=== PATIENT | female | born 1995 | race Caucasian/White ===

== ENCOUNTER 2021-11-11 08:29 | Outpatient (CLI) | payer OTHER, SELFPAY ==
[2021-11-11 11:12] LABS: Iron* 83 ug/dL (37-170)
[2021-11-11 11:22] LABS: Percent Iron Saturation 19 % (20-50); Total Iron Binding Capacity 436 ug/dL (265-497)
[2021-11-11 11:46] LABS: Ferritin* 11.6 ng/mL (6.24-137.0)
[2021-11-12 19:27] LABS: Rapid Plasma Reagin (RPR) Non Reactive (Non Reactive)
== END 2021-11-11 08:30 | disposition home or self-care (01) ==
LOC: NFLDREF 08:29
PROVIDERS: Advanced Practice Midwife; Visit Provider Advanced Practice Midwife
DX: Z34.83 Encounter for supervision of other normal pregnancy, third trimester (principal); Z3A.28 28 weeks gestation of pregnancy
CPT/HCPCS: 82728; 83540; 83550; 86592

== ENCOUNTER 2021-11-25 09:25 | Outpatient (CLI) | payer OTHER, SELFPAY ==
[2021-11-25 11:08] LABS: Aspartate Amino Transferase* 25 U/L (12-35)
[2021-11-25 11:09] LABS: Alanine Aminotransferase* 13 U/L (4-35); Uric Acid* 2.8 mg/dL (2.2-8.4)
[2021-11-25 11:13] LABS: Total Protein Urine < 5 mg/dL
[2021-11-25 11:18] LABS: Creatinine Urine 249.7 mg/dL
[2021-11-25 23:01] LABS: Blood Urea Nitrogen* 14 mg/dL (5-24); Creatinine* 0.6 mg/dL (0.5-1.5); Estimated Glomerular Filt Rate 126 ml/min
== END 2021-11-25 09:26 | disposition home or self-care (01) ==
PROVIDERS: Visit Provider Advanced Practice Midwife
DX: O26.893 Other specified pregnancy related conditions, third trimester (principal); R51.9 Headache, unspecified; Z3A.30 30 weeks gestation of pregnancy
CPT/HCPCS: 82565; 82570; 84156; 84450; 84460; 84520; 84550

== ENCOUNTER 2021-12-03 21:35 | Outpatient (CLI) | payer OTHER, SELFPAY ==
[2021-12-03 22:03] VITALS: BP 110/73; PULSE 96
[2021-12-03 22:04] VITALS: RESP 18; TEMP 36.8; O2SAT 97
[2021-12-03 22:30] LABS: Amnisure Rom* Negative
[2021-12-03 22:32] LABS: Clue Cells No Clue Cells Seen (None Seen); Trichomonas No Trichomonas Seen (None Seen); Yeast Yeast Seen (None Seen)
--- NOTE | 2021-12-03 23:13 | PC.OBNST ---
NST Note NST Note Start: 12/03/21 21:41 Freq: ONCE Status: Active Protocol: Document 12/03/21 22:55 CAW (Rec: 12/03/21 23:13 CAW [id number]) NST Note 2 Para (# of births) 1 EDC 02/01/22 Gestational Age In Weeks & Days 31 Weeks & 3 Days Patient Presented with Complaint(s) of Leaking fluid,Pain If Pain, describe location Lower back and abdominal pain rating 3-4/10 Reactive Yes Appropriate for Gestational Age Yes RN Felisha Marina, NINAC Date 12/03/21 Reactive Yes Appropriate for Gestational Age Yes NINA Fishman, RN Date 12/03/21 OB NST charge Yes Complete NST Note via Write Note Yes The provider's electronic signature indicates the NST is reactive/appropriate for gestational age. *Note to provider: If an addendum is required, open the patient's chart and click on the note under the Nurse/Allied Health tab.
== END 2021-12-03 23:10 | disposition home or self-care (01) ==
LOC: OB LAC 21:35 → OB 21:37
PROVIDERS: Visit Provider Obstetrics & Gynecology
DX: O47.03 False labor before 37 completed weeks of gestation, third trimester (principal); Z3A.31 31 weeks gestation of pregnancy
CPT/HCPCS: 59025; 84112; 87210; 99213

== ENCOUNTER 2021-12-12 09:12 | Outpatient (CLI) | payer OTHER, SELFPAY ==
--- NOTE | 2021-12-12 09:15 | CRLHL7_ITS ---
For Patients: As a result of the Cures Act, medical imaging exams and procedure reports are released immediately into your electronic medical record. You may view this report before your referring provider. If you have questions, please contact your health care provider. INDICATION: FLUID CHECK, HAD OLIGO WITH PREVIOUS COMPARISON: 09/14/2021 TECHNIQUE: Real time lebron scale imaging of the fetus was performed. FINDINGS: Sonographic imaging demonstrates a single living intrauterine gestation. Fetus demonstrates a regular cardiac rate of 150 beats per minute. Fetus has a vertex position. The placenta lies anteriorly. Amniotic fluid volume appears lower limits normal and there is a single deepest vertical pocket: 5.4 cm. The estimated weight is 4gm which lies at the 43rd %. On the prior OB ultrasound exam dated 09/14/2021 the estimated weight was at the 38th%. BPD 69th. HC 31st. AC 53rd. FL 28th. The HC/AC ratio measures 1.05 range (0.96-1.11). IMPRESSION: Sonographic gestational age 33 weeks 0 days and sonographic due date 01/30/2022. Good correlation with dates. Normal interval growth. Single deepest pocket 5.4 cm. Continued follow-up recommended as the overall SONIA appears subjectively lower limits of normal. Estimated weight 43rd percentile. Abdominal circumference 53rd percentile. Dictated by Chris Obregon MD @ 12/12/2021 10:48:24 AM (Electronically Signed)
== END 2021-12-12 09:13 | disposition home or self-care (01) ==
LOC: US 09:12
PROVIDERS: Visit Provider Advanced Practice Midwife
DX: Z34.93 Encounter for supervision of normal pregnancy, unspecified, third trimester (principal); Z3A.32 32 weeks gestation of pregnancy
CPT/HCPCS: 76816

== ENCOUNTER 2021-12-29 16:04 | Outpatient (CLI) | payer OTHER, SELFPAY ==
[2021-12-29 16:16] VITALS: BP 133/69; PULSE 109; RESP 22; TEMP 36.6; O2SAT 98; BMI 33.2
--- NOTE | 2021-12-29 16:34 | ED_ITS ---
HPI - Fall General Chief Complaint: Fall/Minor Trauma Stated Complaint: Fell off horse, 33 weeks Time Seen by Provider: 12/29/21 16:14 History of Present Illness HPI Narrative: This 26-year-old female comes in for evaluation after a fall from a horse. She states that she is 35 weeks . She came off of the left side of her horse and fell onto her outstretched left hand. She did not hit her head. She did not have loss of consciousness. She was wearing a helmet. She did not injure any other extremity and states that she did not hit her abdomen. She comes in for evaluation of her . She does not report any bleeding or cramping. Related Data Home Medications Medication Instructions Recorded Confirmed prenat.vits,jonna,[id number] 1 tab PO QDAY 10/17/21 12/27/21 acetaminophen 500 mg tablet 1,000 mg PO Q6H PRN 12/12/21 12/27/21 (Tylenol Extra Strength) hydroxyzine HCl 25 mg tablet 25 mg PO ONCE PRN 12/27/21 12/27/21 lamotrigine 100 mg tablet 300 mg PO QDAY 12/27/21 12/27/21 magnesium 250 mg tablet 500 mg PO QDAY 12/27/21 12/27/21 Allergies Allergy/AdvReac Type Severity Reaction Status Date / Time sulfate ion Allergy Mild Hives and Verified 12/29/21 16:15 throat closes up Sulfa (Sulfonamide Allergy Verified 12/29/21 16:15 Antibiotics) Sulfa Antibiotics Allergy Intermediate Hives and Uncoded 12/27/21 08:56 throat closes up Review of Systems Status of ROS: Reports: 10 or more systems reviewed and unremarkable except as noted in History and below Narrative: Constitutional: No fevers, no weight gain or loss. Eyes: No discharge. No vision changes. HENT: No congestion, no sore throat, no ear pain. Cardiovascular: No chest pain, no palpitations. Respiratory: No shortness of breath, no wheezes, no cough. Gastrointestinal: No abdominal pain, no vomiting, no diarrhea. Genitourinary: No dysuria, no hematuria. Musculoskeletal: Normal range of motion. Left wrist pain. Skin: No rashes, no pruritis. Neurological: No dizziness, weakness, sensory change, speech change. Endo/Heme/Allergies: No bruising or bleeding. No polydipsia. Pysch: no suicidality, no anxiety, no insomnia. All other systems reviewed and are negative. [facility] Social History Smoking Status: Never smoker Exam Narrative: Exam Narrative: Constitutional: Well-developed, well-nourished, no acute distress. HEENT: Normocephalic, atraumatic. Neck: Normal range of motion. Nontender. Supple. Heart: Regular. No murmurs. Normal rate. Intact distal pulses. Lungs: Clear to auscultation. No chest discomfort. No wheezes, rhonchi, or rales. Abdomen: Normal bowel sounds. Nontender. No rebound tenderness. Gravid. Genitalia: Deferred. Back: No midline tenderness. Normal range of motion. Extremities: Normal range of motion. No injury. Left wrist discomfort but no sign of swelling or deformity. Range of motion is completely intact. Skin: Intact. No rash. Warm. No erythema or pallor. Neurologic: No altered sensation. No weakness. Alert and oriented. Psychiatric: No suicidality. No anxiety or depression. No insomnia. Nursing notes and vitals signs are reviewed. Const: Vital Signs, click to edit/add: Vital Signs - 24 hr 12/29/21 16:16 Temperature 98 F Pulse Rate [Pulse Oximeter] 109 H Respiratory Rate 22 Blood Pressure [Ri ght Upper Arm] 133/69 Pulse Oximetry 98 Oxygen Delivery Me thod Room Air Course Vital Signs Vital signs: Initial Vital Signs Temperature 98 F 12/29/21 16:16 Temperature Source Temporal Artery Scan 12/29/21 16:16 Pulse Rate 109 H 12/29/21 16:16 Pulse Rhythm 12/29/21 16:16 Respiratory Rate 22 12/29/21 16:16 Blood Pressure 133/69 12/29/21 16:16 Blood Pressure Mean 90 12/29/21 16:16 Blood Pressure Position Supine 12/29/21 16:16 Pulse Oximetry 98 12/29/21 16:16 Oxygen Delivery Method 12/29/21 16:16 Vital Signs Temperature 98 F 12/29/21 16:16 Pulse Rate 109 H 12/29/21 16:16 Respiratory Rate 22 12/29/21 16:16 Blood Pressure 133/69 12/29/21 16:16 Pulse Oximetry 98 12/29/21 16:16 Oxygen Delivery Method 12/29/21 16:16 Temperature 98 F 12/29/21 16:16 Pulse Rate 109 H 12/29/21 16:16 Respiratory Rate 22 12/29/21 16:16 Blood Pressure 133/69 12/29/21 16:16 Pulse Oximetry 98 12/29/21 16:16 Oxygen Delivery Method 12/29/21 16:16 MDM - Fall MDM Narrative Medical decision making narrative: This patient fell from a horse in is 35 weeks . I did use bedside ultrasound to evaluate her . Normal heart tones and activity are easily visualized. The patient will be monitored of in the OB department for 4 hours and can be discharged there for that to occur. Discharge Plan Discharge Clinical Impression: , Fall from horse Patient Disposition: Home, Self-Care Condition: Stable Additional Instructions: Transfer to OB department for 4 hours of monitoring. Okay to discharge home if everything is clear to resume normal plans. Prescriptions: No Action prenat.vits,jonna,[id number] Tablet 1 tab PO QDAY hydroxyzine HCl 25 mg tablet 25 mg PO ONCE PRN Label Comments: 75-100mg prn lamotrigine 100 mg tablet 300 mg PO QDAY magnesium 250 mg tablet 500 mg PO QDAY acetaminophen [Tylenol Extra Strength] 500 mg tablet 1,000 mg PO Q6H PRN Follow Up/Referrals: Provider,Not a Local [Primary Care Provider] - Stand Alone Forms: [facility] Instructions Procedures Ultrasound Other exam #1: Anatomical areas examined: Transabdominal views of 35 week gestation fetus. Indications: Fall from horse. Exam type: focused emergency ultrasound Description/findings: Normal heart tones and activity. Appropriate amniotic fluid. Impression: No sign of injury. Normal exam for 35 weeks gestation.
--- OUTSIDE RECORDS SUMMARY | 2021-12-29 16:38 | XMS_ITS | Clinical Summary ---
:1995 Author Organization [employer] [facility] [place] [address] Care Team Providers Name Role Phone Clinic, No Pcp Or Primary Care Provider Unavailable Allergies Active Allergy Reactions Severity Noted Date Comments Sulfa (Sulfonamide Other - Describe In 04/05/2021 Antibiotics) Comment Field Sulfacetamide Sodium Other - Describe In 04/05/2021 Comment Field Medications Medication Sig Dispensed Refills Start Date End Date Status busPIRone (BUSPAR) 5 Take 1 Tablet (5 60 Tablet 2 04/22/2021 Active mg tabletIndications: mg) by mouth 3 Major depressive times daily if disorder, recurrent, needed for Anxiety moderate (HC), PO 1st choice. Anxiety venlafaxine (EFFEXOR Take 1 Capsule (75 90 Capsule 2 2 Active XR) 75 mg cp24 mg) by mouth once Extended-Release daily with a meal. capsuleIndications: Major depressive disorder, recurrent, moderate (HC), Anxiety fluticasone (50 mcg Inhale 2 Sprays to 16 g 3 06/09/2021 Active per actuation) nasal both nostrils once solution daily. (FLONASE)Indications: ETD (Eustachian tube dysfunction), bilateral vit 28/iron Take 1 Tablet by 30 Tablet 2 06/20/2021 Active fum/folic mouth once daily. (multivitamin folic acid 1 mg)Indications: Possible , not confirmed Active Problems Problem Noted Date Pap smear for cervical cancer screening 04/22/2021 Overview: 04/2021 NIL Plan: Pap/HPV due 04/2024 Major depressive disorder, recurrent, moderate 021 Suicidal ideation 03/06/2021 Anxiety 03/06/2021 Estimated Date of Delivery Comments Yes 02/01/2022 Immunizations Name Administration Dates Next Due Tdap 06/01/2019 Family History Medical History Relation Name Comments Anxiety disorder Father Depression Father Anxiety disorder Mother Depression Mother Relation Name Status Comments Father Mother Social History Tobacco Use Types Packs/Day Years Used Date Never Smoker Smokeless Tobacco: Never Used Tobacco Cessation: Counseling Given: Yes Alcohol Use Standard Drinks/Week Comments Not Currently 0 (1 standard drink = 0.6 oz pure alcoho l) Estimated Date of Delivery Comments Yes 02/01/2022 Sex Assigned at Date Recorded Not on file Obstetrics History Para Term AB IAB SAB Ectopic Multiple Living Live Births 2 1 Date Outcome GA Total Labor/2nd/3rd Weight Sex Delivery Anes PTL Loly A 1 A5 Name Clin Labor Current Last Filed Vital Signs Vital Sign Reading Time Taken Comments Blood Pressure 101/67 06/20/2021 9:23 AM CDT Pulse 86 06/20/2021 9:23 AM CDT Temperature - - Respiratory Rate 13 06/09/2021 1:09 PM TELECOMMUNICATION SYSTEMS DESIGNER Oxygen Saturation 100% 06/20/2021 9:23 AM CDT Inhaled Oxygen Concentration - - Weight 78.8 kg (173 lb 12.8 oz) 06/20/2021 9:23 AM CDT Height 174 cm (5' 8.5) 04/22/2021 10:20 AM TELECOMMUNICATION SYSTEMS DESIGNER Body Mass Index 26.04 04/22/2021 10:20 AM TELECOMMUNICATION SYSTEMS DESIGNER Plan of Treatment Health Maintenance Due Date Last Done Comments COVID-19 vaccine series (#1) 1995 Hepatitis C screening for age 18-79 2012 Influenza for age 9-49 12/01/2021 BMI (ht and wt on same day) for age 0104/22/2022 04/22/2021, 02/21/2021 18+ Depression screening for age 12+ 04/22/2022 04/22/2021, , 02/21/2021 Pap test for age 21-65 04/22/2024 04/22/2021 Tetanus booster 05/31/2029 06/01/2019 Tdap Completed 06/01/2019 Results Not on filefrom Last 3 Months Insurance Payer Benefit Plan / Subscriber ID Effective Dates Phone Addre ss Type Group [facility] [id number] 2020-Huma CONTRERAS [address] [place] [address] Care Teams Linotyper Relationship Specialty Start Date End Date Clinic, No Pcp Or PCP - General 02/21/21 .
--- NOTE | 2021-12-29 16:51 | ED.NURSE ---
went to ob for monitoring. dr putnam did a poc u/s.
[2021-12-29 17:05] VITALS: RESP 20; TEMP 36.8
[2021-12-29 17:06] VITALS: BP 115/66; PULSE 94
--- OUTSIDE RECORDS SUMMARY | 2021-12-29 17:54 | XMS_ITS | Clinical Summary ---
:1995 Author Organization [employer] [facility] [employer] [facility] [place] [address] Care Team Providers Name Role Phone Clinic, [...] - Respiratory Rate 13 06/09/2021 1:09 PM SAWSMITH Oxygen Saturation 100% 06/20/2021 9:23 AM CDT Inhaled Oxygen Concentration - - Weight 78.8 kg (173 lb 12.8 oz) 06/20/2021 9:23 AM CDT Height 174 cm (5' 8.5) 04/22/2021 10:20 AM SAWSMITH Body Mass Index 26.04 04/22/2021 10:20 AM SAWSMITH Plan of Treatment Health Maintenance Due Date [...] Effective Dates Phone Addre ss Type Group [facility] [id number] 2020-Huma CONTRERAS [address] [place] [address] Care Teams Vending Stand Supervisor Relationship Specialty Start Date End Date Clinic, No Pcp Or PCP - General 02/21/21 .
--- NOTE | 2021-12-29 18:19 | PC.OBNST ---
NST Note NST Note Start: 12/29/21 17:08 Freq: ONCE Status: Active Protocol: Document 12/29/21 18:16 EDIS (Rec: 12/29/21 18:19 EDIS [id number]) NST Note 2 Para (# of births) 1 EDC 12/29/21 Gestational Age In Weeks & Days 40 Weeks & 0 Days Patient Presented with Complaint(s) of Observation after an injury If Observation after an injury, describe Pt was riding her horse, with a helmet, horse went to sit down, pt slid off Other Complaints Pt slid off her horse, hit her head, and landed on her wrist . In ED for initial assessment. Reactive Yes Appropriate for Gestational Age Yes NINA Olivo Date 12/29/21 Reactive Yes Appropriate for Gestational Age Yes NINA Lane Date 12/29/21 OB NST charge Yes Complete NST Note via Write Note Yes The provider's electronic signature indicates the NST is reactive/appropriate for gestational age. *Note to provider: If an addendum is required, open the patient's chart and click on the note under the Nurse/Allied Health tab.
== END 2021-12-29 18:00 | disposition home or self-care (01) ==
LOC: ED 16:51 → OB 17:39 → OB OUT 17:52 → OB 17:53
PROVIDERS: Emergency Provider Emergency Medicine Emergency Medical Services; Visit Provider Advanced Practice Midwife
DX: Z34.93 Encounter for supervision of normal pregnancy, unspecified, third trimester (principal); Z3A.34 34 weeks gestation of pregnancy
CPT/HCPCS: 59025; 76815; 99213; 99284

== ENCOUNTER 2022-01-10 12:06 | Outpatient (REF) | payer OTHER, SELFPAY ==
--- OUTSIDE RECORDS SUMMARY | 2022-01-10 12:10 | XMS_ITS | Clinical Summary ---
:1995 Author Organization [employer] [facility] [employer] [facility] [place] [address] Care Team Providers Name Role Phone Clinic, [...] - Respiratory Rate 13 06/09/2021 1:09 PM BATTERY BUILDER Oxygen Saturation 100% 06/20/2021 9:23 AM CDT Inhaled Oxygen Concentration - - Weight 78.8 kg (173 lb 12.8 oz) 06/20/2021 9:23 AM CDT Height 174 cm (5' 8.5) 04/22/2021 10:20 AM BATTERY BUILDER Body Mass Index 26.04 04/22/2021 10:20 AM BATTERY BUILDER Plan of Treatment Health Maintenance Due Date [...] Effective Dates Phone Addre ss Type Group [facility] [id number] 2020-Huma CONTRERAS [id number] [place] [address] Care Teams Rag Cutting Machine Operator Relationship Specialty Start Date End Date Clinic, No Pcp Or PCP - General 02/21/21 .
[2022-01-10 13:06] LABS: Alanine Aminotransferase* 12 U/L (4-35); Aspartate Amino Transferase* 24 U/L (12-35); Blood Urea Nitrogen* 11 mg/dL (5-24); Creatinine* 0.7 mg/dL (0.5-1.5); Estimated Glomerular Filt Rate 121 ml/min
== END 2022-01-10 12:07 | disposition home or self-care (01) ==
LOC: NPINS 12:06
PROVIDERS: PCP Advanced Practice Midwife; Visit Provider Advanced Practice Midwife
DX: Z34.93 Encounter for supervision of normal pregnancy, unspecified, third trimester (principal); Z3A.36 36 weeks gestation of pregnancy
CPT/HCPCS: 76819; 82565; 84450; 84460; 84520; 87081; 87653

== ENCOUNTER 2022-01-30 12:04 | Outpatient (CLI) | payer OTHER, SELFPAY ==
--- OUTSIDE RECORDS SUMMARY | 2022-01-30 12:08 | XMS_ITS | Clinical Summary ---
:1995 Author Organization [employer] [facility] [employer] [facility] [place] [address] Care Team Providers Name Role Phone Clinic, [...] - Respiratory Rate 13 06/09/2021 1:09 PM DAY CARE PROVIDER Oxygen Saturation 100% 06/20/2021 9:23 AM CDT Inhaled Oxygen Concentration - - Weight 78.8 kg (173 lb 12.8 oz) 06/20/2021 9:23 AM CDT Height 174 cm (5' 8.5) 04/22/2021 10:20 AM DAY CARE PROVIDER Body Mass Index 26.04 04/22/2021 10:20 AM DAY CARE PROVIDER Plan of Treatment Health Maintenance Due Date [...] Effective Dates Phone Addre ss Type Group [facility] [id number] 2020-Huma CONTRERAS [address] [place] [address] Care Teams Paralegal Legal Secretary Relationship Specialty Start Date End Date Clinic, No Pcp Or PCP - General 02/21/21 .
[2022-01-30 12:22] VITALS: PULSE 113; O2SAT 97
[2022-01-30 12:24] VITALS: BP 116/61; PULSE 103; RESP 18; TEMP 37; O2SAT 97
[2022-01-30 13:10] LABS: Amnisure Rom* Negative
[2022-01-30 14:12] LABS: Clue Cells No Clue Cells Seen (None Seen); Trichomonas No Trichomonas Seen (None Seen); Yeast No Yeast Seen (None Seen)
--- NOTE | 2022-01-30 14:40 | PC.OBNST ---
NST Note NST Note Start: 01/30/22 12:00 Freq: ONCE Status: Active Protocol: Document 01/30/22 13:45 WK (Rec: 01/30/22 14:40 WK [id number]) NST Note 2 Para (# of births) 1 EDC 02/01/22 Gestational Age In Weeks & Days 39 Weeks & 5 Days Patient Presented with Complaint(s) of Leaking fluid,Decreased movement Reactive Yes RN WKlotter RNC Date 01/30/22 Reactive Yes RN CMpayalt RN Date 01/30/22 OB NST charge Yes Complete NST Note via Write Note Yes The provider's electronic signature indicates the NST is reactive/appropriate for gestational age. *Note to provider: If an addendum is required, open the patient's chart and click on the note under the Nurse/Allied Health tab.
== END 2022-01-30 13:47 | disposition home or self-care (01) ==
LOC: OB OUT 12:07 → OB 12:09
PROVIDERS: Visit Provider Advanced Practice Midwife
DX: Z34.93 Encounter for supervision of normal pregnancy, unspecified, third trimester (principal); Z3A.39 39 weeks gestation of pregnancy
CPT/HCPCS: 59025; 84112; 87081; 87210; 99213

== ENCOUNTER 2022-02-02 14:06 | Outpatient (REF) | payer OTHER, SELFPAY ==
--- OUTSIDE RECORDS SUMMARY | 2022-02-02 14:25 | XMS_ITS | Clinical Summary ---
:1995 Author Organization [employer] [facility] [employer] [facility] [place] [address] Care Team Providers Name Role Phone Clinic, [...] - Respiratory Rate 13 06/09/2021 1:09 PM TENNIS DESK TEAM MEMBER Oxygen Saturation 100% 06/20/2021 9:23 AM CDT Inhaled Oxygen Concentration - - Weight 78.8 kg (173 lb 12.8 oz) 06/20/2021 9:23 AM CDT Height 174 cm (5' 8.5) 04/22/2021 10:20 AM TENNIS DESK TEAM MEMBER Body Mass Index 26.04 04/22/2021 10:20 AM TENNIS DESK TEAM MEMBER Plan of Treatment Health Maintenance Due Date [...] Effective Dates Phone Addre ss Type Group [facility] [id number] 2020-Huma CONTRERAS [address] [place] [address] Care Teams Autocad Technician Relationship Specialty Start Date End Date Clinic, No Pcp Or PCP - General 02/21/21 .
[2022-02-02 16:42] LABS: Alanine Aminotransferase* 16 U/L (4-35); Aspartate Amino Transferase* 26 U/L (12-35); Blood Urea Nitrogen* 12 mg/dL (5-24); Creatinine* 0.7 mg/dL (0.5-1.5); Estimated Glomerular Filt Rate 121 ml/min
== END 2022-02-02 14:07 | disposition home or self-care (01) ==
LOC: NPINS 14:06
PROVIDERS: Visit Provider Advanced Practice Midwife
DX: Z34.93 Encounter for supervision of normal pregnancy, unspecified, third trimester (principal); Z3A.40 40 weeks gestation of pregnancy
CPT/HCPCS: 82565; 84450; 84460; 84520

== ENCOUNTER 2022-02-05 02:08 | Inpatient (IN) | payer OTHER, SELFPAY ==
[2022-02-05] VITALS (68 sets, daily range): BP systolic 97–145; BP diastolic 55–91; PULSE 78–103; RESP 16–18; TEMP 36.4–36.8; O2SAT 92–100; BMI 36.1
--- OUTSIDE RECORDS SUMMARY | 2022-02-05 00:44 | XMS_ITS | Clinical Summary ---
:1995 Author Organization [employer] [facility] [place] [address] Care Team Providers Name Role Phone Clinic, [...] - Respiratory Rate 13 06/09/2021 1:09 PM RETAIL REPRESENTATIVE Oxygen Saturation 100% 06/20/2021 9:23 AM CDT Inhaled Oxygen Concentration - - Weight 78.8 kg (173 lb 12.8 oz) 06/20/2021 9:23 AM CDT Height 174 cm (5' 8.5) 04/22/2021 10:20 AM RETAIL REPRESENTATIVE Body Mass Index 26.04 04/22/2021 10:20 AM RETAIL REPRESENTATIVE Plan of Treatment Health Maintenance Due Date [...] Effective Dates Phone Addre ss Type Group [facility] [id number] 2020-Huma CONTRERAS [address] [place] [address] Care Teams Analytics Associate Relationship Specialty Start Date End Date Clinic, No Pcp Or PCP - General 02/21/21 .
[2022-02-05 01:09] LABS: Amnisure Rom* Negative
[2022-02-05] MEDS: LACTATED RINGERS 1000 ML 1,000 ML 125 ML IV ×3 (02:37→16:49)
[2022-02-05] MEDS: AMPICILLIN 2 GM in 0.9 % SODIUM CHLORIDE Mini-bag 100 ML IVPB (02:38)
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
[2022-02-05 03:18] LABS: SARS PCR* Negative SARS-CoV-2 (Negative)
[2022-02-05] MEDS: AMPICILLIN 1 GM in 0.9 % SODIUM CHLORIDE Mini-bag 100 ML IVPB ×3 (06:45→14:44)
[2022-02-05] MEDS: SODIUM CHLORIDE 0.9 % (FLUSH) 10 ML SYRINGE IVF (06:46)
[2022-02-05] MEDS: ROPIVACAINE 0.2% 100 ml 100 ML 12 MG EPIDURAL ×2 (08:11→16:09)
[2022-02-05] MEDS: LIDOCAINE 2% (PF) 5 ML VIAL EPIDURAL (08:11)
--- NOTE | 2022-02-05 10:15 | PM.ANBPRC ---
PFSH PFSH Surgical History (Updated 01/17/22 @ 14:56 by Karen Miles CNM) [place] teeth extracted Family History (Updated 01/17/22 @ 14:59 by Karen Miles CNM) Maternal Grandfather Diabetes Maternal Grandmother Diabetes Mother Diabetes Paternal Grandfather Blindness Social History Smoking Status: Never smoker Meds Home Medications and Allergies Home Medications Medication Instructions Recorded Confirmed Type prenat.vits,jonna,[id number] 1 tab PO QDAY 10/17/21 02/05/22 History acetaminophen 500 mg tablet 1,000 mg PO Q6H PRN 12/12/21 02/05/22 History (Tylenol Extra Strength) hydroxyzine HCl 25 mg tablet 25 mg PO ONCE PRN 12/27/21 02/05/22 History magnesium 250 mg tablet 500 mg PO QDAY 12/27/21 02/05/22 History lamotrigine 100 mg tablet 400 mg PO QDAY 01/24/22 02/05/22 History quetiapine 25 mg tablet 25 mg PO BID 01/24/22 02/05/22 History Allergies Allergy/AdvReac Type Severity Reaction Status Date / Time sulfate ion Allergy Mild Hives and Verified 02/02/22 10:11 throat closes up Sulfa Antibiotics Allergy Intermediate Hives and Uncoded 02/02/22 10:11 throat closes up Results Labs Labs: Laboratory Results - last 24 hr 02/05/22 02/05/22 01:34 BERRY PICKER 02:05 Membrane Rupture Negative SARS-CoV-2 (PCR) Negative SARS-CoV-2 Vital Signs Vital Signs: Last Vital Signs Temp 97.8 F 02/05/22 05:40 Pulse 82 02/05/22 10:08 Resp 16 02/05/22 05:40 BP 122/62 02/05/22 10:08 Pulse Ox 99 02/05/22 08:09 Weight: 110.994 kg Height: 175.26 cm Anesthesia Procedures Epidural Insertion Patient Location: OB Start Time: 07:40 Stop Time: 08:30 Start Date: 02/05/22 Stop Date: 02/05/22 Reason for Block: procedure for pain Patient Position: sitting Performed By: Sue Villaseñor Preanesthetic Checklist: IV checked, site marked, risks and benefits discussed, monitors and equipment checked, pre-op evaluation, timeout performed and anesthesia consent Prep: chlorhexidine gluconate Monitoring: blood pressure monitoring, continuous pulse oximetry and heart rate Approach: midline Vertebral Space: lumbar (1-5) Epidural Technique: VITALY saline Needle Type: Tuohy needle Injection Technique: continuous catheter Needle gauge: 18 Needle Length (cm): 10 cm Needle Insertion Depth (cm): 6 Catheter Gauge: 19 Catheter Type: multi-orifice Catheter at skin depth (cm): 15 Test Dose Result: negative and lidocaine 1.5% with epinephrine 1 to 200,000
[2022-02-05] MEDS: OXYTOCIN 30 unit/500 ML in NS 30 UNIT/500 ML BAG IVPB (11:07)
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
--- NOTE | 2022-02-05 19:48 | P.OBPRC_ITS ---
Procedure Delivery date: 02/05/22 Procedure Done: Global Intrapartal Events: Labor Augmentation (With pitocin and AROM after epidural placement) and Other (Shoulder dystocia x 40 seconds) Delivery augmentation: rupture of membranes and pitocin Delivery monitor: external FHT Route of delivery: Laceration description: Perineal - 2nd Degree Delivery repair: Vicryl Estimated blood loss (mL): 300 Anesthesia type: Epidural Disposition: floor Narrative: The patient is a 26 year-old G2 now P2 admitted on 02/05/2022 at 40 Weeks, 4 Days gestation for spontaneous onset of labor.? Cervical exam on admission was 5 cm/50 % effaced/-3 station with membranes intact in vertex presentation.? Contractions were every 2-5 minutes.? heart rate demonstrated baseline 140 bpm with moderate variability, + accelerations, - decelerations; a category 1 tracing.? AROM occurred at 1520 with clear fluid. ? Labor Analgesia:? Epidural ? Pitocin:? Yes ? Labor onset:? 02/05/2022 0200 am ? Complete:? 1720 ? Pushing:? 1724 ? heart tones during second stage were category II with deep variables noted with pushing and slow return to baseline between. Patient refused to be positioned in any other position than semi-high fowlers due to feeling like she could not breath and panicky. She did allow a semi-reclined position. ? Patient was admitted for spontaneous labor. Contractions seemed to slow right after admission but progressively got more uncomfortalbe and patient requested and epidural. After her epidural placement, contractions spaced out and after no progress in 2 hours, augmentation was recommended. She progressed with augmentation of Pitocin followed by AROM of a large amount of clear fluid at 1520. Patient was complete at 1720 and pushing at 1724. of a viable male at 1748 in high semi-fowlers on the bed. Vertex delivered OA. Head delivered slowly, concern for shoulder was made aware with request for stools. Nuchal cord x1 was reduced and 40 second shoulder dystocia resolved with suprapubic pressure and Mary. Rest of body delivered easily and without incident. appeared stunned at , minimal response was made to cry, cord was immediately clamped and cut; was brought to the warmer and was given PPV for <40 seconds. Care of was assumed by RN. APGARS were 3 at one minute and 8 at five minutes respectively. Intact placenta with a 3 vessel cord delivered spontaneously at 1753. Fundus firm. 2nd degree identified and repaired in typical fashion, right labial abrasion. QBL 300 cc. Mother and baby stable; mother plans to breastfeed. weighed 9lb 4oz. ? Placenta delivered spontaneously and complete at 1753 with a 3 vessel cord. ? Mother and infant were stable after delivery. ? Lacerations:? 2nd, repaired with 3-0 vicryl, right labial abrasion not repaired. ? Blood loss: 300 mL. Blood loss measurement type: QBL ? Sponge and needles counts are correct. [place] Infant Infant Gender: Male presentation: vertex Placental Delivery Description: Spontaneous Cord Description: 3 Vessels, Nuchal Cord, Loose and Reduced (at perineum) total score - 1 minute: 3 total score - 5 minute: 8 OB Vag Delivery Procedures Additional Procedures ECV: No Cook Catheter Insertion: No NST: No D&C: No Laceration Repair: Yes Tubal Ligation : No Other: No
[2022-02-05] MEDS: ACETAMINOPHEN 500 MG TABLET 1000 MG PO (22:03)
[2022-02-06] MEDS: IBUPROFEN 600 MG TABLET PO ×3 (00:35→18:37)
[2022-02-06 01:16] VITALS: BP 131/70; PULSE 102; RESP 16; TEMP 36.6; O2SAT 94
[2022-02-06] MEDS: ACETAMINOPHEN 500 MG TABLET 1000 MG PO ×4 (04:01→23:00)
[2022-02-06 04:27] VITALS: BP 104/63; PULSE 84; RESP 16; TEMP 36.6; O2SAT 96
--- NOTE | 2022-02-06 08:12 | PM.OBPNVD1 ---
OB - PN:Subj Subjective Time Seen by Provider: 08:14 Date Seen: 02/06/22 Interval history: Patient is a 26 year old, G 2 now P 2? admitted on 02/05/22 at 40.4 gestation for labor.? She had a vaginal delivery complicated w/ a shoulder dystocia.? She delivered a viable male infant.? She is breast feeding and reports things are well.? the patient has done well.? Vitals have been stable.? She has remained afebrile.? She is voiding without difficulty.? She is passing gas and has not had a bowel movement.? She is ambulating and denies any dizziness.? ? Patient comments OB post-: no complaints and pain well controlled (Having increased cramping, plans to stay on ibuprofen around the clock ) [place] status: [place] feeding status: exclusively OB - PN: Obj Exam Physical Exam: Vital signs: Temp Pulse Resp BP Pulse Ox O2 Del Method 97.9 F 84 16 104/63 96 02/06/22 04:27 02/06/22 04:27 02/06/22 04:27 02/06/22 04:27 02/06/22 04:27 02/06/22 04:27 Constitutional: Constitutional: no acute distress Routine HEENT Exam: Head: Present atraumatic and normocephalic Routine Neck Exam: Neck: Present full ROM Routine Respiratory Exam: Respiratory: Present CTA bilaterally Routine Cardiovascular Exam: Cardiovascular: Present RRR Routine Abdominal Exam: Abdominal: Present normal bowel sounds Fundus: Present firm (@ u) Routine Exam: External: Present swelling (perineal edema, mod) Perineum Description: Edematous Routine Extremities Exam: Extremities: Present full ROM Routine Back/Spine/Pelvis Exam: Back/Spine: Present full ROM Routine Skin Exam: Skin: Present dry and warm Routine Neurological Exam: Neurological: Present alert and oriented X3 Routine Psychiatric Exam: Psychiatric: Present normal affect and normal thought process OB - PN: A/P Vaginal Delivery Assessment and Plan (1) Pain during labor: Status: Acute (2) Anxiety and depression: Status: Acute (3) Asthma, exercise induced: Status: Acute Plan Plan: routine care Comments: day 1 Continue routine PP care , going well. May see prior to discharge Acute anemia.
[2022-02-06 08:18] LABS: Hemoglobin* 10.6 gm/dL (12.0-16.0)
[2022-02-06 08:30] VITALS: BP 125/85; PULSE 89; RESP 16; TEMP 36.6
[2022-02-06] MEDS: DOCUSATE SODIUM 100 MG CAPSULE PO (08:45)
[2022-02-06] MEDS: lamoTRIgine 100 MG TABLET 200 MG PO ×2 (09:45→19:48)
[2022-02-06] MEDS: QUETIAPINE 25 MG TABLET PO ×2 (09:45→19:48)
[2022-02-06 12:30] VITALS: BP 118/76; PULSE 89; RESP 16; TEMP 36.6
[2022-02-06 15:30] VITALS: BP 102/67; PULSE 89; RESP 16; TEMP 36.6
[2022-02-07] MEDS: IBUPROFEN 600 MG TABLET PO ×2 (00:27→08:13)
[2022-02-07 00:49] VITALS: RESP 18; TEMP 36.8; O2SAT 97
[2022-02-07] MEDS: ACETAMINOPHEN 500 MG TABLET 1000 MG PO ×2 (05:02→11:31)
[2022-02-07 08:00] VITALS: BP 124/85; PULSE 86; RESP 16; TEMP 37.1; O2SAT 97
[2022-02-07 08:13] VITALS: TEMP 37.1
[2022-02-07] MEDS: DOCUSATE SODIUM 100 MG CAPSULE PO (08:13)
[2022-02-07] MEDS: lamoTRIgine 100 MG TABLET 200 MG PO (08:16)
[2022-02-07] MEDS: QUETIAPINE 25 MG TABLET PO (08:17)
--- NOTE | 2022-02-07 08:18 | PM.OBDSVD1 ---
DS: Providers Provider Date Seen: 02/07/22 Date of admission: 02/05/22 02:08 Primary care physician: Not a Local Provider Admitting Clinician: Leona Burks CNM Attending Physician on discharge: Irma Ballard CNM Date of Discharge: 02/07/22 DS: Diagnosis Discharge Diagnosis (1) Asthma, exercise induced: Status: Acute (2) Anxiety and depression: Status: Acute (3) Thoughts of harming others: Status: Acute Problem details: Hx of intrusive thoughts with her first (4) Delivery normal: Status: Acute (5) Lactating mother: Status: Acute Exam Narrative: Exam Narrative: GENERAL APPEARANCE:? normal affect, alert, no distress? MOOD:? appropriate? CHEST:? clear to auscultation and percussion? HEART:? regular rate and rhythm? ABDOMEN:? soft, non-tender the uterine fundus is 2 cm Below Umbilicus, Midline and is appropriate for the stage of recovery.? PERINEUM:? mild edema of the perineum, there is a 2nd degree that is healing well.? EXTREMITIES:? normal and no edema? Const: Vital Signs, click to edit/add: Vital Signs - 24 hr 02/06/22 08:30 02/06/22 12:30 02/06/22 15:30 Temperature 97.8 F 97.8 F 97.9 F Pulse Rate [Pulse Oximeter] 89 89 89 Respiratory Rate 16 16 16 Blood Pressure [Le ft Arm] 125/85 118/76 102/67 Pulse Oximetry Oxygen Delivery Me thod Room Air Room Air Room Air 02/07/22 00:49 02/07/22 08:00 02/07/22 08:13 Temperature 98.2 F 98.7 F 98.7 F Pulse Rate [Pulse Oximeter] 86 Respiratory Rate 18 16 Blood Pressure [Le ft Arm] 124/85 Pulse Oximetry 97 97 Oxygen Delivery Me thod Room Air Room Air Documenting provider has reviewed patient's vital signs: yes OB - DS: Summary Hospital Course Hospital Course: The patient is a 26 year old G 2 now P 2 at 40.4 weeks gestation that was admitted to the Center on 02/05/22 for active labor. She had an uncomplicated vaginal delivery. She delivered a viable male . She is breast feeding and states that it is going well.? the patient has done well.? Her pain is well controlled with current medications.? She has no new complaints.? Vitals have been stable. She has remained afebrile. She is voiding without difficulty. She is passing gas and has not had a bowel movement. She is ambulating and denies any dizziness. She is planning condoms for control.?She may consider another form of control alter but wants to make sure she gets her mood stabilized before introducing another medication.?She is planning on continuing to see Horacio to adjust her medications. She plans to call today to schedule an appointment with her. She will plan to see is in 1 week, 2 weeks, and 6 weeks. She knows she can be seen is sooner if she has concerns with her anxiety or depression. She feels that she is feeling pretty good today with mood but is concerned about how she will handle 2 kids. Her mom is at her house for another 1.5 weeks and has 4 weeks off work after that. she feels she has good support and help with her mom, and other family that live nearby. Peripartum Data delivery method: Vaginal Laceration description: None Episiotomy description: None complications: none [place] Infant Gender: Male Infant Discharge Plan: Home Status at Discharge Functional status at discharge: independent ambulation Overall status at discharge: patient is progressing back to baseline Time Spent with Patient Time attestation: Total time spent providing and/or coordinating discharge services: Discharge Plan Discharge Disposition: Home, Self-Care Date of Admission: 02/05/22 02:08 Attending Provider on Discharge: Irma Ballard Primary Care Provider: Provider,Not a Local Condition: Stable Anticipated Discharge Date/Time: 02/07/22 11:00 Discharge Medications: New docusate sodium 100 mg Capsule 100 mg PO DAILY PRNQty: 60 0RF Rx Instructions: Take 1-2 tablets daily as needed for constipation. ibuprofen 600 mg Tablet 600 mg PO Q6H PRNQty: 60 0RF Continued prenat.vits,jonna,osb-ohkl-ivpvs Tablet 1 tab PO QDAY hydroxyzine HCl 25 mg tablet 25 mg PO ONCE PRN Label Comments: 75-100mg prn magnesium 250 mg tablet 500 mg PO QDAY lamotrigine 100 mg tablet 400 mg PO QDAY quetiapine 25 mg tablet 25 mg PO BID acetaminophen [Tylenol Extra Strength] 500 mg tablet 1,000 mg PO Q6H PRN Discharge Orders: Discharge Order (Routine); Ordered 02/07/22 Ordered By: Irma Ballard Patient Education: OB Vaginal/Breast Feeding Additional Instructions: Discharge instructions were reviewed with the patient including signs and symptoms of infection and home going medications.? Lifting Restrictions: 10 pounds for 6? weeks? ?? Do not drive while taking pain meds.? Off Work or School for 6 weeks.? ?? Symptoms to report to doctor:? -Bleeding that saturates more than one pad per hour? -Passing clots larger than the size of a golf ball? -Pain not relieved by prescribed medication? -Fever above 100.4 degrees Fahrenheit? -A foul vaginal odor? -Difficulty in emotions, mood and functions? -Thoughts of hurting yourself and/or ? -Painful, reddened area in your breast? -Any drainage, redness or tenderness in your IV/epidural site? -Severe headache that doesn't improve after taking medications? -Changes in vision, including temporary loss of vision, blurred vision, and/or light sensitivity? -Upper abdominal pain (usually under ribs on the right side)? -Decrease in urination or painful, frequent urinating? -Chest pain? -Shortness of breath? -Tenderness or pain with redness and/swelling in the calf(s) of your leg? ?? Follow Up in clinic in 1, 2, and 6 weeks.? ?? consultation services are available to all mothers and babies for the first year after delivery.? To make an appointment, please call [phone].? Activity Level: No Restrictions and Activity as Tolerated Discharge Diet: Regular Follow Up Appointments: Provider,Not a Local [Primary Care Provider] - Forms: [employer] Info Instructions
== END 2022-02-07 12:40 | disposition home or self-care (01) | DRG 807 ==
LOC: OB OUT 02:08 → OB 02:08
PROVIDERS: Admitting Provider Advanced Practice Midwife; Visit Provider Advanced Practice Midwife
DX: O99.824 Streptococcus B carrier state complicating childbirth (principal); Z37.0 Single live birth; O66.0 Obstructed labor due to shoulder dystocia; O70.1 Second degree perineal laceration during delivery; J45.909 Unspecified asthma, uncomplicated; Z91.410 Personal history of adult physical and sexual abuse; O99.344 Other mental disorders complicating childbirth; F32.A Depression, unspecified; F41.9 Anxiety disorder, unspecified; F41.0 Panic disorder [episodic paroxysmal anxiety]; R45.850 Homicidal ideations; Z3A.40 40 weeks gestation of pregnancy
CPT/HCPCS: 01967; 36415; 84112; 85018; 87635; A9270; J0290; J2795; J7120

== ENCOUNTER 2022-03-10 17:03 | Outpatient (REF) | payer OTHER, SELFPAY ==
--- OUTSIDE RECORDS SUMMARY | 2022-03-10 17:07 | XMS_ITS | Clinical Summary ---
:1995 Author Organization [facility] [place] [address] Care Team Providers Name Role Phone Clinic, [...] - Respiratory Rate 13 06/09/2021 1:09 PM [employer] Oxygen Saturation 100% 06/20/2021 9:23 AM CDT Inhaled Oxygen Concentration - - Weight 78.8 kg (173 lb 12.8 oz) 06/20/2021 9:23 AM CDT Height 174 cm (5' 8.5) 04/22/2021 10:20 AM [employer] Body Mass Index 26.04 04/22/2021 10:20 AM [employer] Plan of Treatment Health Maintenance Due Date Last Done Comments COVID-19 vaccine series (#1) 1994 HIV for age 15-65 2009 Hepatitis C screening for age 18-79 2012 [...] Effective Dates Phone Addre ss Type Group [facility] [id number] 2020-Huma [id number] [place] [address] Care Teams Hunter Guide Relationship Specialty Start Date End Date Clinic, No Pcp Or PCP - General 02/21/21 .
== END 2022-03-10 17:04 | disposition home or self-care (01) ==
LOC: NPINS 17:03
PROVIDERS: Visit Provider Advanced Practice Midwife
DX: F31.9 Bipolar disorder, unspecified (principal)
CPT/HCPCS: 80175

== ENCOUNTER 2022-04-16 18:22 | Emergency (ER) | payer OTHER, SELFPAY ==
[2022-04-16 18:28] VITALS: BP 120/69; PULSE 80; RESP 20; TEMP 36.2; O2SAT 99; BMI 34.7
--- NOTE | 2022-04-16 19:00 | ED_ITS ---
HPI - General Adult General Chief complaint: Eye Problems Stated complaint: Vision issues and headache Time Seen by Provider: 04/16/22 18:27 Source: patient History of Present Illness HPI narrative: Patient presents saying that she and her were hoping that she could get a lithium level drawn. She notes that she started lithium a couple of weeks ago for management of depression and suicidal thoughts. Over the past couple of days, she says she has had intermittent blurred vision. This can last up to 1/2 hour to 45 minutes at a time, but is not currently present. She has not had any vision loss or double vision. She says that she will just have trouble focusing at times. Also, she has noted some red spots in her vision at times. She has not had anything that is descriptive of a scotoma. She has had a mild headache on and off as well, she says it gets better with sleep. It is located in the left center of her head. She has not needed any medication for pain. She has had some mild nausea, no vomiting. A little bit of diffuse neck pain but no stiffness. Denies any trauma or fever. After she developed the blurred vision, they went online and looked up lithium, they are now worried about possible lithium toxicity. Related Data Home Medications Medication Instructions Recorded Confirmed prenat.vits,jonna,[id number] 1 tab PO QDAY 10/17/21 03/21/22 acetaminophen 500 mg tablet 1,000 mg PO Q6H PRN 12/12/21 03/21/22 (Tylenol Extra Strength) magnesium 250 mg tablet 500 mg PO QDAY 12/27/21 03/21/22 lamotrigine 100 mg tablet 400 mg PO QDAY 01/24/22 03/21/22 hydroxyzine HCl 25 mg tablet 50 mg PO ONCE PRN 02/13/22 03/21/22 duloxetine 20 mg capsule,delayed 20 mg PO BID 02/21/22 03/21/22 release (Cymbalta) quetiapine 25 mg tablet 75 mg PO BID 03/21/22 03/21/22 lithium carbonate 300 mg capsule 300 mg PO BID 04/16/22 04/16/22 Previous Rx's Medication Instructions Recorded ibuprofen 600 mg tablet 600 mg PO Q6H PRN #60 tabs 02/07/22 Allergies Allergy/AdvReac Type Severity Reaction Status Date / Time sulfate ion Allergy Mild Hives and Verified 03/21/22 11:31 throat closes up Sulfa Antibiotics Allergy Intermediate Hives and Uncoded 03/21/22 11:31 throat closes up Review of Systems Status of ROS: Reports: 10 or more systems reviewed and unremarkable except as noted in History and below [facility] Medical History Pain during labor Surgical History [place] teeth extracted Family History Maternal Grandfather Diabetes Maternal Grandmother Diabetes Mother Diabetes Paternal Grandfather Blindness Social History Smoking Status: Never smoker Second hand tobacco smoke exposure: No How often do you have a drink containing alcohol: never How often do you have six or more drinks on one occasion: Never AUDIT-C Alcohol total score: 0 Non-prescribed substance use: denies use Little interest or pleasure in doing things: more than half the days Feeling down, depressed, or hopeless: nearly every day Exam Narrative: Exam Narrative: Vital signs as noted above. In general, an alert, well-appearing patient. Head: Normocephalic, atraumatic. Eyes: Pupils are equal reactive. Extraocular movements are full. No nystagmus or diplopia. Conjunctivae are normal. ENT: Mucous membranes are moist. Throat is normal. TMs normal. Neck: Supple without lymphadenopathy. No meningeal signs. Heart: Regular rate and rhythm. No murmur or rub. Lungs: Clear bilaterally. No increased work of breathing, crackles or wheezes. Abdomen: Soft and nontender. No organomegaly. Extremities: Well perfused. No edema. No calf tenderness. Pulses intact. Neurologic: Patient is alert and oriented to person and place. Speech is fluent. Face is symmetric. Moves all extremities equally. Visual steven full. Cerebellar function is intact by finger-nose testing. Affect: Normal. Skin: Warm and dry. Well perfused. Const: Vital Signs, click to edit/add: Vital Signs - 24 hr 04/16/22 18:28 Temperature 97.1 F L Pulse Rate [Pulse Oximeter] 80 Respiratory Rate 20 Blood Pressure [Ri ght Upper Arm] 120/69 Pulse Oximetry 99 Oxygen Delivery Me thod Room Air Documenting provider has reviewed patient's vital signs: yes Course Course Hospital Course: Patient is alert, mentating normally, no ataxia or confusion. I do not think she is showing any signs of lithium toxicity. Discussed with her that we can draw lithium level but this is a send out lab for rests so this will not come back out for a couple of days. Will go ahead and check a couple of other basic labs including electrolytes, cell counts. Her exam is benign, she is describing a mild headache with written symptoms and insidious onset. I do not think this represents intracranial hemorrhage and I do not see anything that suggest need for imaging. Nothing to suggest an infectious cause. No meningeal signs. She is afebrile. She does were glasses, visual acuity here is 20/30 right eye, 20/30 left eye, 20/20 both eyes. Basic labs are reassuring. Discussed with her that at this time, symptoms may be a side effect of the lithium, but I do not have any reason to suspect toxicity. I would continue at current dosing, see if symptoms improve over the next several days to week or 2. If they are persistent, I would recommend follow-up with eye doctor. I would also suggest discussion with her prescribing physician, although we discussed that side effects often less than over time, and that if the medication is working well for her, that it may make sense to tolerate some level of side effect. [place] level will return in a couple of days, and we will call her if that should return elevated. Vital Signs Vital signs: Initial Vital Signs Temperature 97.1 F L 04/16/22 18:28 Temperature Source Temporal Artery Scan 04/16/22 18:28 Pulse Rate 80 04/16/22 18:28 Respiratory Rate 20 04/16/22 18:28 Blood Pressure 120/69 04/16/22 18:28 Blood Pressure Mean 86 04/16/22 18:28 Pulse Oximetry 99 04/16/22 18:28 Oxygen Delivery Method 04/16/22 18:28 Vital Signs Temperature 97.1 F L 04/16/22 18:28 Pulse Rate 80 04/16/22 18:28 Respiratory Rate 20 04/16/22 18:28 Blood Pressure 120/69 04/16/22 18:28 Pulse Oximetry 99 04/16/22 18:28 Oxygen Delivery Method 04/16/22 18:28 Temperature 97.1 F L 04/16/22 18:28 Pulse Rate 80 04/16/22 18:28 Respiratory Rate 20 04/16/22 18:28 Blood Pressure 120/69 04/16/22 18:28 Pulse Oximetry 99 04/16/22 18:28 Oxygen Delivery Method 04/16/22 18:28 Medical Decision Making Lab Data Labs: Lab Results 04/16/22 04/16/22 Range/Units 19:09 19:09 WBC 8.16 (4.50-11.00) K/uL RBC 4.80 (4.00-5.20) m/uL Hgb 12.7 (12.0-16.0) gm/dL Hct 39.3 (33.0-51.0) % MCV 82 (80-100) fL MCH 27 (26-34) pg MCHC 32 (32-36) gm/dL RDW Coeff of Ritesh 13.1 (11.5-15.5) % Plt Count 322 (140-440) K/uL Neut % (Auto) 55.6 (42.0-72.0) % Lymph % (Auto) 34.8 (20-44) % [place] % (Auto) 6.3 (0.0-11.0) % Eos % (Auto) 2.7 (0.0-7.0) % Baso % (Auto) 0.5 (0.0-3.0) % Neut # (Auto) 4.54 (1.7-7.0) K/uL Lymph # (Auto) 2.84 (0.90-2.90) K/uL [place] # (Auto) 0.50 (0.00-0.90) K/UL Eos # (Auto) 0.22 (0.00-0.50) K/uL Baso # (Auto) 0.04 (0.00-0.30) K/uL Sodium 142 (135-149) mmol/L Potassium 4.1 (3.6-5.1) mmol/L Chloride 107 (96-114) mmol/L Carbon Dioxide 26 (20-32) mmol/L BUN 20 (5-24) mg/dL Creatinine 1.0 (0.5-1.5) mg/dL Estimated Creat Clear 87.53 Estimated GFR 79 ml/min Glucose 98 (60-115) mg/dL Calcium 9.7 (8.4-10.6) mg/dL Discharge Plan Discharge Clinical Impression: Blurry vision Patient Disposition: Home, Self-Care Condition: Stable Instructions: Blurred Vision (ED) Additional Instructions: We will call you if lithium level is elevated. In the meantime, continue your current dosing. If symptoms are persistent, discussed with your prescribing doctor, and follow-up for eye check as discussed. If at any time you have this sleepiness, confusion, balance problems, you should be seen again right away. Prescriptions: No Action prenat.vits,jonna,[id number]-adpoc Tablet 1 tab PO QDAY magnesium 250 mg tablet 500 mg PO QDAY lamotrigine 100 mg tablet 400 mg PO QDAY hydroxyzine HCl 25 mg tablet 50 mg PO ONCE PRN Label Comments: 75-100mg prn quetiapine 25 mg tablet 75 mg PO BID duloxetine [Cymbalta] 20 mg capsule,delayed release(DR/EC) 20 mg PO BID acetaminophen [Tylenol Extra Strength] 500 mg tablet 1,000 mg PO Q6H PRN ibuprofen 600 mg Tablet 600 mg PO Q6H PRNQty: 60 0RF lithium carbonate 300 mg capsule 300 mg PO BID Label Comments: TAKE 1 CAPSULE TWICE DAILY, ONE IN THE MORNING AND ONE IN THE AFTERNOON WITH HIS OTHER MEDICATIONS Follow Up/Referrals: Provider,Not a Local [Primary Care Provider] - Stand Alone Forms: [employer] Info Instructions
[2022-04-16 19:20] LABS: Basophils Absolute Auto 0.04 K/uL (0.00-0.30); Basophils Percent Auto 0.5 % (0.0-3.0); Eosinophils Absolute Auto 0.22 K/uL (0.00-0.50); Eosinophils Percent Auto 2.7 % (0.0-7.0); Hematocrit 39.3 % (33.0-51.0); Hemoglobin* 12.7 gm/dL (12.0-16.0); Immature Granulocytes Abs Auto 0.01 K/uL (0.00-0.30); Immature Granulocytes Pct Auto 0.1 %; Lymphocytes Absolute Auto 2.84 K/uL (0.90-2.90); Lymphocytes Percent Auto 34.8 % (20-44); Mean Corpuscular HGB Conc 32 gm/dL (32-36); Mean Corpuscular Hemoglobin 27 pg (26-34); Mean Corpuscular Volume 82 fL (80-100); Monocytes Percent Auto 6.3 % (0.0-11.0); Neutrophils Absolute Auto 4.54 K/uL (1.7-7.0); Neutrophils Percent Auto 55.6 % (42.0-72.0); Platelet Count* 322 K/uL (140-440); RDW Coefficient of Variation % 13.1 % (11.5-15.5); White Blood Count* 8.16 K/uL (4.50-11.00)
[2022-04-16 19:24] LABS: Slide Review Reflex No
[2022-04-16 20:07] LABS: Chloride* 107 mmol/L (96-114); Potassium* 4.1 mmol/L (3.6-5.1); Sodium* 142 mmol/L (135-149)
[2022-04-16 20:10] LABS: Blood Urea Nitrogen* 20 mg/dL (5-24); Calcium* 9.7 mg/dL (8.4-10.6); Carbon Dioxide* 26 mmol/L (20-32); Est. Creatinine Clearance* 87.53; Estimated Glomerular Filt Rate 79 ml/min; Glucose* 98 mg/dL (60-115)
[2022-04-19 00:17] LABS: Lithium, Serum or Plasma 0.3 mmol/L (0.5-1.2)
== END 2022-04-16 20:21 | disposition home or self-care (01) ==
PROVIDERS: Emergency Provider Emergency Medicine
DX: H53.8 Other visual disturbances (principal)
CPT/HCPCS: 36415; 80048; 80178; 85025; 99283; 99284

== ENCOUNTER 2022-04-19 10:24 | Outpatient (CLI) | payer OTHER, SELFPAY | END 2022-04-19 10:25 | disposition home or self-care (01) | LOC: NFLDREF 10:25 | PROVIDERS: Visit Provider Obstetrics & Gynecology | DX: R32 Unspecified urinary incontinence (principal) | CPT/HCPCS: 87086 ==

== ENCOUNTER 2022-10-19 14:34 | Outpatient (REF) | payer BC, SELFPAY ==
[2022-10-19 15:19] LABS: Chloride* 104 mmol/L (96-114); Potassium* 4.1 mmol/L (3.6-5.1); Sodium* 139 mmol/L (135-149)
[2022-10-19 15:22] LABS: Blood Urea Nitrogen* 17 mg/dL (5-24); Carbon Dioxide* 26 mmol/L (20-32); Creatinine* 0.9 mg/dL (0.5-1.5); Estimated Glomerular Filt Rate 89 ml/min
[2022-10-19 15:23] LABS: Calcium* 9.6 mg/dL (8.4-10.6); Glucose* 87 mg/dL (60-115)
[2022-10-19 16:31] LABS: Free T4 Free Thyroxine* 0.72 ng/dL (0.70-1.85)
[2022-10-21 15:49] LABS: Lamotrigine 6.8 ug/mL (3.0-15.0)
[2022-10-21 15:55] LABS: Lithium, Serum or Plasma 0.4 mmol/L (0.5-1.2)
== END 2022-10-19 14:35 | disposition home or self-care (01) ==
LOC: NPINS 14:34
DX: Z79.899 Other long term (current) drug therapy (principal)
CPT/HCPCS: 80048; 80175; 80178; 84439; 84443

== ENCOUNTER 2023-02-20 12:40 | Outpatient (REF) | payer BC, SELFPAY ==
[2023-02-20 13:19] LABS: Cholesterol* 232 mg/dL (90-199)
[2023-02-20 13:20] LABS: Glucose* 94 mg/dL (60-115); HDL Cholesterol* 84 mg/dL (>=50); LDL Cholesterol Calculated 134 mg/dL (<100); Triglycerides* 72 mg/dL (40-149)
[2023-02-20 13:33] LABS: Hemoglobin A1C* 5.5 % (0-5.6)
[2023-02-22 07:46] LABS: Lithium, Serum or Plasma 0.4 mmol/L (0.5-1.2)
== END 2023-02-20 12:41 | disposition home or self-care (01) ==
LOC: NPINS 12:40
PROVIDERS: Visit Provider Clinical Nurse Specialist
DX: Z79.899 Other long term (current) drug therapy (principal)
CPT/HCPCS: 80061; 80178; 82947; 83036

== ENCOUNTER 2023-03-19 15:19 | Outpatient (REF) | payer BC, SELFPAY ==
[2023-03-21 22:13] LABS: Lithium, Serum or Plasma 0.6 mmol/L (0.5-1.2)
== END 2023-03-19 15:20 | disposition home or self-care (01) ==
LOC: NPINS 15:19
PROVIDERS: Visit Provider Clinical Nurse Specialist
DX: Z79.899 Other long term (current) drug therapy (principal)
CPT/HCPCS: 80178

== ENCOUNTER 2023-04-10 13:30 | Outpatient (REF) | payer BC, SELFPAY ==
--- OUTSIDE RECORDS SUMMARY | 2023-04-10 13:34 | XMS_ITS | Clinical Summary ---
Author Name Unknown Organization [facility] Address [place], [place] [address] Care Team Providers Care Warehouse Engineer Name Role Phone Aydee Roberson MD Primary Care Provider [phone] Allergies Active Allergy Reactions Criticality Noted Date Comments Sulfa (Sulfonamide Antibiotics) Other - Describe In Comment Field 04/05/2021 Sulfacetamide Sodium Other - Describe In Comment Field 04/05/2021 Medications Medication Sig Dispensed Refills Start Date End Date Status fluticasone (50 mcg per actuation) nasal solution (FLONASE)Indications :ETD (Eustachian tube dysfunction), bilateral Inhale 2 Sprays to both nostrils once daily. 16 g 3 06/09/2021 Active vit 28/iron fum/folic (multivitamin folic acid 1 mg)Indications:Possi ble , not confirmed Take 1 Tablet by mouth once daily. 30 Tablet 2 06/20/2021 Active hydrOXYzine HCL (ATARAX) 25 mg tablet Take 25 mg by mouth every 6 hours if needed. 0 05/28/2022 Active lamoTRIgine (LAMICTAL) 200 mg tablet Take 800 mg by mouth two times daily. 0 09/11/2022 Active lamoTRIgine (LAMICTAL) 100 mg tablet Take 100 mg by mouth once daily. 0 01/17/2022 Active lithium carbonate (LITHONATE) 300 mg capsule Take 900 mg by mouth two times daily. 0 09/11/2022 Active QUEtiapine (SEROQUEL) 100 mg tablet Take 100 mg by mouth two times daily. 0 09/11/2022 Active QUEtiapine (SEROQUEL) 50 mg tablet Take 50 mg by mouth. 0 09/11/2022 Active Active Problems Problem Noted Date Diagnosed Date Pap smear for cervical cancer screening 04/22/19 22 Overview: 04/2021 NIL Plan: Pap/HPV due 04/2024 Major depressive disorder, recurrent, moderate 1 05/07/2020 Suicidal ideation 03/06/2021 Anxiety 03/06/2021 Immunizations Name Administration Dates Next Due COVID-19 vaccine ([employer] NT[employer] 30mcg/0.3mL) 12YO+ BIVALENT PF, MDV 10/04/2022 Tdap 11/25/2021,06/01/2019 Family History Medical History Relation Name Comments Anxiety disorder Father Depression Father Anxiety disorder Mother Depression Mother Relation Name Status Comments Father Mother Social History Tobacco Use Types Packs/Day Years Used Date Smoking Tobacco: Never Smokeless Tobacco: Never Tobacco Cessation:Counseling Given: Yes Alcohol Use Standard Drinks/Week Comments Not Currently 0 (1 standard drink = 0.6 oz pur e alcohol) PHQ-2 Answer Date Recorded PHQ-2 TOTAL SCORE 4 10/04/2022 Social Connections Answer Date Recorded Frequency of Communication with Friends and Fami ly Not on file 03/24/2021 Financial Resource Strain Answer Date R ecorded Difficulty of Paying Living Expenses Not on file 03/24/2021 Difficulty of Paying Living Expenses Not on file 03/24/2021 Sex and Gender Information Value Date Recorded Sex Assigned at Not on file Gender Identity Not on file Sexual Orientation Not on file Obstetrics History Para Term AB IAB SAB Ectopic Multiple Livin g Live Births 2 1 Date Outcome GA Total Labor Labor/2nd/3rd Weight Sex Delivery Anes PTL Loly A1 A5 Name Cl in Last Filed Vital Signs Vital Sign Reading Time Taken Comments Blood Pressure 115/73 10/04/2022 3:02 PM CDT Pulse 78 10/04/2022 3:02 PM CDT Temperature - - Respiratory Rate 13 06/09/2021 1:09 PM FOOD SERVICE HOTEL RUNNER Oxygen Saturation 96% 10/04/2022 3:02 PM CDT Inhaled Oxygen Concentration - - Weight 107.8 kg (237 lb 9.6 oz) 10/04/2022 3:02 PM CDT Height 174.8 cm (5' 8.82) 10/04/2022 3:02 PM CD T Body Mass Index 35.27 10/04/2022 3:02 PM CDT Plan of Treatment Health Maintenance Due Date Last Done Comments HIV for age 15-65 2009 Hepatitis C screening for age 18-79 2012 COVID-19 vaccine series ( season) 2022 10/04/2022 Influenza for age 9-49 12/01/2022 BMI (ht and wt on same day) for age 18+ 10/05/2023 10/04/2022, 04/22/2021, 02/21/2021 Depression screening for age 12+ 10/07/2023 10/06/2022, 10/04/2022, 04/22/2021, Additional history exists Pap test for age 21-65 04/22/2024 04/22/2021 Tetanus booster 11/26/2031 11/25/2021, 06/01/2019 Tdap Completed 11/25/2021, 06/01/2019 Pneumococcal series for age 6-64 Aged Out No longer eligible based on patient's age to complete this topic Care Teams Warehouse Engineer Relationship Specialty Start Date End Date Aydee Roberson MD [address] [place] [address] PCP - General Family Practice 10/06/22
--- OUTSIDE RECORDS SUMMARY | 2023-04-10 13:35 | XMS_ITS | Encounter Summary ---
Author Name Unknown Organization [facility] Address [address] [place] [address] Care Team Providers Care Financial Supervisor Name Role Phone Unavailable Primary Care Provider Unavailabl e Encounter Details Date Type Department Care Team (Late st Contact Info) Description 05/24/2022 Orders Only [facility] [address] [place] [address] Lizeth Curiel APRN METAL FABRICATING SHOP HELPER [facility] [address] [place] [address] High risk medication use (Primary Dx); Bipolar 1 disorder (H) Social History Tobacco Use Types Packs/Day Years Used Date Smoking Tobacco: Never Assessed Sex and Gender Information Value Date Recorded Sex Assigned at Not on file Gender Identity Not on file Sexual Orientation Not on file COVID-19 Exposure Response Date Recorded In the last 10 days, have yo u been in contact with someone who was confirmed or suspected to have Coronavirus/COVID-19? No / Unsure 05/24/2022 12:18 PM BOTTOMING MACHINE OPERATOR documented as of this encounter Plan of Treatment Not on file documented as of this encounter Results * (ABNORMAL) T4 free (05/24/2022 12:32 PM BOTTOMING MACHINE OPERATOR) Free T4 0.71(L) 0.90 - 1.70 ng/dL 05/24/2022 1:10 PM BOTTOMING MACHINE OPERATOR [facility] Blood STRUCTURE OF RIGHT UPPER LIMB / Unknown Venipuncture / Unknown 05/24/2022 12:32 PM BOTTOMING MACHINE OPERATOR 05/24/2022 12:32 PM BOTTOMING MACHINE OPERATOR Lizeth Willian Veena TOTH METAL FABRICATING SHOP HELPER LAB - BLOOD OR DERABLES LABORATORY [facility] [address] Lab (1st floor, no room number) [place] [address], [facility] [phone] * TSH (05/24/2022 12:32 PM BOTTOMING MACHINE OPERATOR) Pathologist [facility] TSH 4.09 0.30 - 4.20 uIU/mL 05/24/2022 1:10 PM BOTTOMING MACHINE OPERATOR LABORATORY Blood STRUCTURE OF RIGHT UPPER LIMB / Unknown Venipuncture / Unknown 05/24/2022 12:32 PM BOTTOMING MACHINE OPERATOR 05/24/2022 12:32 PM BOTTOMING MACHINE OPERATOR Lizeth Curiel APRN METAL FABRICATING SHOP HELPER LAB - BLOOD OR DERABLES Performing Organization Address City/[facility]/ZIP Co de Phone Number LABORATORY [facility] [address] Lab (1st floor, no room number) [place] [address], [facility] [phone] * (ABNORMAL) Basic metabolic panel (05/24/2022 12:32 PM BOTTOMING MACHINE OPERATOR) [facility] Sodium 141 136 - 145 mmol/L 05/24/2022 12:58 PM BOTTOMING MACHINE OPERATOR LABORATORY Potassium 4.2 3.4 - 5.3 mmol/L 05/24/2022 12:58 PM [facility] Chloride 102 98 - 107 mmol/L 05/24/2022 12:58 PM [facility] Carbon Dioxide (CO2) 28 22 - 29 mmol/L 05/24/2022 12:58 PM BOTTOMING MACHINE OPERATOR LABORATORY Anion Gap 11 7 - 15 mmol/L 05/24/2022 12:58 PM BOTTOMING MACHINE OPERATOR LABORATORY Urea Nitrogen 18.1 6.0 - 20.0 mg/dL 05/24/2022 12:58 PM [facility] Creatinine 1.05(H) 0.51 - 0.95 mg/dL 05/24/2022 12:58 PM BOTTOMING MACHINE OPERATOR LABORATORY Calcium 9.8 8.6 - 10.0 mg/dL 05/24/2022 12:58 PM BOTTOMING MACHINE OPERATOR LABORATORY Glucose 70 70 - 99 mg/dL 05/24/2022 12:58 PM BOTTOMING MACHINE OPERATOR LABORATORY GFR Estimate 74 >60 mL/min/1.7 3m2 05/24/2022 12:58 PM BOTTOMING MACHINE OPERATOR LABORATORY Comment:eGFR calculated usin 2020 CKD-EPI equation. Blood STRUCTURE OF RIGHT UPPER LIMB / Unknown Venipuncture / Unknown 05/24/2022 12:32 PM BOTTOMING MACHINE OPERATOR 05/24/2022 12:32 PM BOTTOMING MACHINE OPERATOR Lizeth Curiel APRN METAL FABRICATING SHOP HELPER LAB - BLOOD OR DERABLES [facility] [address] Lab (1st floor, no room number) [place] [address], [facility] [phone] * (ABNORMAL) [place] level (05/24/2022 12:32 PM BOTTOMING MACHINE OPERATOR) [place] 0.3(L) 0.6 - 1.2 mmol/L 05/24/2022 1:30 PM BOTTOMING MACHINE OPERATOR LABORATORY Comment: Therapeutic: 0.60 - 1.20 mmol/L; Toxic: >2.00 mmol/L Blood STRUCTURE OF RIGHT UPPER LIMB / Unknown Venipuncture / Unknown 05/24/2022 12:32 PM BOTTOMING MACHINE OPERATOR 05/24/2022 12:32 PM BOTTOMING MACHINE OPERATOR Lizeth Curiel APRN METAL FABRICATING SHOP HELPER LAB - BLOOD OR DERABLES [facility] [address] Lab (1st floor, no room number) [place] [address], [facility] [phone] * Lamotrigine Level (05/24/2022 12:32 PM BOTTOMING MACHINE OPERATOR) Lamotrigine 4.3 3.0 - 15.0 ug/mL 05/26/2022 11:45 PM BOTTOMING MACHINE OPERATOR [facility] Comment: INTERPRETIVE INFORMATION: ??Lamotrigine Therapeutic Range: ??3.0-15.0 ug/mL ?Toxic: ??Greater than or equal to 20 ug/mL Pharmacokinetics varies widely, particularly with co-medications and/or compromised renal function. ??Adverse effects may include dizziness, somnolence, nausea and vomiting. Performed By: [facility] [address] [place] [address] Freelance Displayer: Jaden Zimmerman MD, PhD Blood STRUCTURE OF RIGHT UPPER LIMB / Unknown Venipuncture / Unknown 05/24/2022 12:32 PM BOTTOMING MACHINE OPERATOR 05/24/2022 12:32 PM BOTTOMING MACHINE OPERATOR Lizeth Curiel APRN METAL FABRICATING SHOP HELPER LAB - BLOOD OR DERABLES [facility] [address] [place] [address], [facility] [phone] * (ABNORMAL) UA with Microscopic (05/24/2022 12:57 AM BOTTOMING MACHINE OPERATOR) Color Urine Yellow Colorless, Straw, Light Yellow, Yellow 05/24/2022 1:32 PM BOTTOMING MACHINE OPERATOR LABORATORY Appearance Urine Clear Clear 05/24/19 1:32 PM BOTTOMING MACHINE OPERATOR LABORATORY Glucose Urine Negative Negative mg/dL 05/24/2022 1:32 PM BOTTOMING MACHINE OPERATOR LABORATORY Bilirubin Urine Negative Negative 1:32 PM BOTTOMING MACHINE OPERATOR LABORATORY Ketones Urine Negative Negative mg/dL 05/24/2022 1:32 PM BOTTOMING MACHINE OPERATOR LABORATORY Specific [place] Urine 1.028 1.003 - 1.035 05/24/2022 1:32 PM BOTTOMING MACHINE OPERATOR [facility] Blood Urine Negative Negative 05/24/2022 1:32 PM BOTTOMING MACHINE OPERATOR LABORATORY pH Urine 5.5 5.0 - 7.0 05/24/2022 1:32 PM BOTTOMING MACHINE OPERATOR LABORATORY Protein Albumin Urine Negative Negative mg/dL 05/24/2022 1:32 PM BOTTOMING MACHINE OPERATOR LABORATORY Urobilinogen Urine Normal Normal, 2.0 mg/dL 05/24/2022 1:32 PM BOTTOMING MACHINE OPERATOR LABORATORY Nitrite Urine Negative Negative 05/24/2022 1:32 PM BOTTOMING MACHINE OPERATOR LABORATORY Leukocyte Esterase Urine Negative Negative 05/24/2022 1:32 PM BOTTOMING MACHINE OPERATOR LABORATORY Mucus Urine Present(A) None Seen /LPF 05/24/2022 1:32 PM BOTTOMING MACHINE OPERATOR [facility] RBC Urine 1 <=2 /HPF 05/24/2022 1:32 PM BOTTOMING MACHINE OPERATOR [facility] WBC Urine <1 <=5 /HPF 05/24/2022 1:32 PM BOTTOMING MACHINE OPERATOR [facility] Squamous Epithelials Urine <1 <=1 /HPF 05/24/2022 1:32 PM BOTTOMING MACHINE OPERATOR LABORATORY Urine URINE SPECIMEN OBTAINED BY CLEAN CATCH PROCEDURE / Unknown Non-blood Collection / Unknown 05/24/2022 12:57 AM BOTTOMING MACHINE OPERATOR 05/24/2022 1:27 PM BOTTOMING MACHINE OPERATOR Lizeth Curiel APRN METAL FABRICATING SHOP HELPER LAB - URINE OR DERABLES LABORATORY [facility] [address] Lab (1st floor, no room number) [place] [address], [facility] [phone] documented in this encounter Visit Diagnoses Diagnosis High risk medication use- Primary Encounter for long-term (current) use of other medications Bipolar 1 disorder (H) Bipolar I disorder, most recent episode (or current) unspecified documented in this encounter
--- OUTSIDE RECORDS SUMMARY | 2023-04-10 13:35 | XMS_ITS | Encounter Summary ---
Author Name Unknown Organization [facility] Address [address] [place] [address] Care Team Providers Care International Sales Representative Name Role Phone Unavailable Primary Care Provider Unavailabl e Encounter Details Date Type Department Care Team (Latest Contact Info) Description 06/29/2022 Travel Social History Tobacco Use Types Packs/Day Years Used Date Smoking Tobacco: Never Assessed Sex and Gender Information Value Date Recorded Sex Assigned at Not on file Gender Identity Not on file Sexual Orientation Not on file COVID-19 Exposure Response Date Recorded In the last 10 days, have pool u been in contact with someone who was confirmed or suspected to have Coronavirus/COVID-19? No / Unsure 06/29/2022 10:05 AM CDT documented as of this encounter Plan of Treatment Not on file documented as of this encounter Visit Diagnoses Not on filedocumented in this encounter
--- OUTSIDE RECORDS SUMMARY | 2023-04-10 13:35 | XMS_ITS | Encounter Summary ---
Author Name Unknown Organization [address] [address] Care Team Providers Care Computer Networker Name Role Phone Unavailable Primary Care Provider Unavailabl e Encounter Details Date Type Department Care Team (Late st Contact Info) Description 06/29/2022 10:05 AM CDT Lab [facility] [address] [place] [address] Bipolar 1 disorder (H) (Primary Dx); High risk medication use Social History Tobacco Use Types Packs/Day Years [...] on file documented as of this encounter Procedures Procedure Name Priority Date/Time Associated Diagnosis Comments EXTRA RED TOP TUBE (LAB USE ONLY) Routine 06/29/2022 10:22 AM CDT Bipolar 1 disorder (H) EXTRA GREEN TOP TUBE (LAB USE ONLY) Routine 06/29/2022 10:22 AM CDT Bipolar 1 disorder (H) documented in this encounter Results * (ABNORMAL) Thyroxine total (06/29/2022 10:22 AM CDT) T4 Total 4.1(L) 4.5 - 11.7 ug/dL 06/29/2022 1:50 PM CDT [facility] Blood BLOOD SPECIMEN / Unknown Venipuncture / Unknown 06/29/2022 10:22 AM CDT 06/29/2022 10:43 AM CDT Lizeth Curiel APRN, CNP LAB - BLOOD OR DERABLES [facility] [place] [facility] Lab [address] [facility], [address] [place] [address], [facility] [phone] * (ABNORMAL) TSH (06/29/2022 10:22 AM CDT) TSH 4.67(H) 0.30 - 4.20 uIU/mL 06/29/2022 11:20 AM CDT LABORATORY Blood STRUCTURE OF LEFT UPPER LIMB / Unknown Venipuncture / Unknown 06/29/2022 10:22 AM CDT 06/29/2022 10:22 AM CDT Lizeth Curiel APRN, CNP LAB - BLOOD OR DERABLES LABORATORY [facility] Acute Care Lab [address] Lab (1st floor, no room number) [place] [address], [place] [phone] * (ABNORMAL) Basic metabolic panel (06/29/2022 10:22 AM CDT) Sodium 141 136 - 145 mmol/L 06/29/2022 11:14 AM CDT [facility] Potassium 4.2 3.4 - 5.3 mmol/L 06/29/2022 11:14 AM CDT [facility] Chloride 104 98 - 107 mmol/L 06/29/2022 11:14 AM CDT [facility] Carbon Dioxide (CO2) 28 22 - 29 mmol/L 06/29/2022 11:14 AM CDT LABORATORY Anion Gap 9 7 - 15 mmol/L 06/29/2022 11:14 AM CDT [facility] Urea Nitrogen 14.8 6.0 - 20.0 mg/dL 06/29/2022 11:14 AM CDT LABORATORY Creatinine 1.00(H) 0.51 - 0.95 mg/dL 06/29/2022 11:14 AM CDT LABORATORY Calcium 9.9 8.6 - 10.0 mg/dL 06/29/2022 11:14 AM CDT LABORATORY Glucose 65(L) 70 - 99 mg/dL 06/29/2022 11:14 AM CDT LABORATORY GFR Estimate 78 >60 mL/min/1.7 3m2 06/29/2022 11:14 AM CDT LABORATORY Comment:eGFR calculated usin 2020 CKD-EPI equation. Blood STRUCTURE OF LEFT UPPER LIMB / Unknown Venipuncture / Unknown 06/29/2022 10:22 AM CDT 06/29/2022 10:22 AM CDT Lizeth Curiel APRN, CNP LAB - BLOOD OR DERABLES Performing Organization Address City/[facility]/ZIP Co de Phone Number [facility] [address] Lab (1st floor, no room number) [place] [address], [facility] [phone] * [place] level (06/29/2022 10:22 AM CDT) [facility] [place] 0.6 0.6 - 1.2 mmol/L 06/29/2022 11:47 AM CDT LABORATORY Comment: Therapeutic: 0.60 - 1.20 mmol/L; Toxic: >2.00 mmol/L Blood STRUCTURE OF LEFT UPPER LIMB / Unknown Venipuncture / Unknown 06/29/2022 10:22 AM CDT 06/29/2022 10:22 AM CDT Lizeth Curiel APRN, CNP LAB - BLOOD OR DERABLES [facility] [address] Lab (1st floor, no room number) [place] [address], [facility] [phone] * Extra Green Top Tube (LAB USE ONLY) (06/29/2022 10:22 AM CDT) Hold Specimen [facility] 06/29/2022 11:31 AM CDT LABORATORY Blood STRUCTURE OF LEFT UPPER LIMB / Unknown Venipuncture / Unknown 06/29/2022 10:22 AM CDT 06/29/2022 10:22 AM CDT Lizeth Curiel APRN, CNP LAB - BLOOD OR DERABLES LABORATORY [facility] Care Lab [address] Lab (1st floor, no room number) [place] [address], [place] [phone] * Extra Red Top Tube (LAB USE ONLY) (06/29/2022 10:22 AM CDT) Hold Specimen [facility] 06/29/2022 11:31 AM CDT LABORATORY Blood STRUCTURE OF LEFT UPPER LIMB / Unknown Venipuncture / Unknown 06/29/2022 10:22 AM CDT 06/29/2022 10:22 AM CDT Lizeth Curiel APRN, CNP LAB - BLOOD OR DERABLES [facility] Lab [address] Lab (1st floor, no room number) [place] [address], [place] [phone] documented in this encounter Visit Diagnoses Diagnosis Bipolar 1 disorder (H)- Primary Bipolar I disorder, most recent episode (or current) unspecified High risk medication use Encounter for long-term (current) use of other medications documented in this encounter
--- OUTSIDE RECORDS SUMMARY | 2023-04-10 13:35 | XMS_ITS | Referral Summary ---
Author Name Unknown Organization [place] Address [address] [place] [address] Care Team Providers Care Departmental Buyer Name Role Phone Unavailable Primary Care Provider Unavailabl e Social History Tobacco Use Types Packs/Day Years Used Date Smoking Tobacco: Never Assessed Adolescent Education Answer Date Record ed Getting School Help Needed Not on file 12/23 Sex and Gender Information Value Date Recorded Sex Assigned at Not on file Gender Identity Not on file Sexual Orientation Not on file Plan of Treatment Not on file
--- OUTSIDE RECORDS SUMMARY | 2023-04-10 13:35 | XMS_ITS | Encounter Summary ---
Author Name Unknown Organization [place] Address [address] [place] [address] Care Team Providers Care Masonry Teacher Name Role Phone Unavailable Primary Care Provider Unavailabl e Encounter Details Date Type Department Care Team (Latest Contact Info) Description 05/24/2022 Travel Social History Tobacco Use Types Packs/Day [...] Coronavirus/COVID-19? No / Unsure 05/24/2022 12:18 PM SUPPORT SERVICES SPECIALIST documented as of this encounter Plan of Treatment Not on file documented as of this encounter Visit Diagnoses Not on filedocumented in this encounter
--- OUTSIDE RECORDS SUMMARY | 2023-04-10 13:35 | XMS_ITS | Encounter Summary ---
Author Name Unknown Organization [place] Address [address] [place] [address] Care Team Providers Care Service Worker Helper Name Role Phone Unavailable Primary Care Provider Unavailabl e Encounter Details Date Type Department Care Team (Late st Contact Info) Description 05/24/2022 12:15 PM CASHIER CLERK Lab [facility] [address] [place] [address] High risk medication use; Bipolar 1 disorder (H) Social History Tobacco [...] Coronavirus/COVID-19? No / Unsure 05/24/2022 12:18 PM CASHIER CLERK documented as of this encounter Plan of Treatment Not on file documented as of this encounter Procedures Procedure Name Priority Date/Time Associated Diagnosis Comments LAMOTRIGINE LEVEL Routine 05/24/2022 12: 32 PM CASHIER CLERK High risk medication use Bipolar 1 disorder (H) TSH Routine 05/24/2022 12:32 PM CASHIER CLERK High risk medication use Bipolar 1 disorder (H) T4 FREE Routine 05/24/2022 12:32 PM CASHIER CLERK High risk medication use Bipolar 1 disorder (H) LITHIUM LEVEL Routine 05/24/2022 12:32 PM CASHIER CLERK High risk medication use Bipolar 1 disorder (H) BASIC METABOLIC PANEL Routine 05/24/2022 12:32 PM CASHIER CLERK High risk medication use Bipolar 1 disorder (H) ROUTINE UA WITH MICROSCOPIC Routine 05/24/2022 12:57 AM CASHIER CLERK High risk medication use Bipolar 1 disorder (H) documented in this encounter Results * (ABNORMAL) T4 free (05/24/2022 12:32 PM CASHIER CLERK) Free T4 0.71(L) 0.90 - 1.70 ng/dL 05/24/2022 1:10 PM CASHIER CLERK LABORATORY Blood STRUCTURE OF RIGHT UPPER LIMB / Unknown Venipuncture / Unknown 05/24/2022 12:32 PM CASHIER CLERK 05/24/2022 12:32 PM CASHIER CLERK Lizeth Curiel APRN TITLE COORDINATOR LAB - BLOOD OR DERABLES Performing Organization Address City/[facility]/ZIP Co de Phone Number [facility] Lab [address] Lab (1st floor, no room number) [place] [phone], [facility] [phone] * TSH (05/24/2022 12:32 PM CASHIER CLERK) Pathologist [facility] TSH 4.09 0.30 - 4.20 uIU/mL 05/24/2022 1:10 PM CASHIER CLERK LABORATORY Blood STRUCTURE OF RIGHT UPPER LIMB / Unknown Venipuncture / Unknown 05/24/2022 12:32 PM CASHIER CLERK 05/24/2022 12:32 PM CASHIER CLERK Lizeth Curiel APRN TITLE COORDINATOR LAB - BLOOD OR DERABLES [facility] Lab [address] Lab (1st floor, no room number) [place] [address], [facility] [phone] * (ABNORMAL) Basic metabolic panel (05/24/2022 12:32 PM CASHIER CLERK) Sodium 141 136 - 145 mmol/L 05/24/2022 12:58 PM CASHIER CLERK [facility] Potassium 4.2 3.4 - 5.3 mmol/L 05/24/2022 12:58 PM [facility] LABOR[facility]ORY Chloride 102 98 - 107 mmol/L 05/24/2022 12:58 PM [facility] Carbon Dioxide (CO2) 28 22 - 29 mmol/L 05/24/2022 12:58 PM [facility] Anion Gap 11 7 - 15 mmol/L 05/24/2022 12:58 PM [facility] Urea Nitrogen 18.1 6.0 - 20.0 mg/dL 05/24/2022 12:58 PM [facility] Creatinine 1.05(H) 0.51 - 0.95 mg/dL 05/24/2022 12:58 PM [facility] Calcium 9.8 8.6 - 10.0 mg/dL 05/24/2022 12:58 PM [facility] Glucose 70 70 - 99 mg/dL 05/24/2022 12:58 PM [facility] GFR Estimate 74 >60 mL/min/1.7 3m2 05/24/2022 12:58 PM [facility] Comment:eGFR calculated usmo 2020 CKD-EPI equation. Blood STRUCTURE OF RIGHT UPPER LIMB / Unknown Venipuncture / Unknown 05/24/2022 12:32 PM CASHIER CLERK 05/24/2022 12:32 PM CASHIER CLERK Lizeth Curiel APRN TITLE COORDINATOR LAB - BLOOD OR DERABLES LABORATORY [facility] Acute Care Lab [address] [facility] Lab (1st floor, no room number) [place] [address] [phone] * (ABNORMAL) [place] level (05/24/2022 12:32 PM CASHIER CLERK) [place] 0.3(L) 0.6 - 1.2 mmol/L 05/24/2022 1:30 PM [facility] Comment: Therapeutic: 0.60 - 1.20 mmol/L; Toxic: >2.00 mmol/L Blood STRUCTURE OF RIGHT UPPER LIMB / Unknown Venipuncture / Unknown 05/24/2022 12:32 PM CASHIER CLERK 05/24/2022 12:32 PM CASHIER CLERK Lizeth Curiel APRN TITLE COORDINATOR LAB - BLOOD OR DERABLES LABORATORY [facility] Acute [facility] Lab [address] Lab (1st floor, no room number) [place] [address], [facility] [phone] * [place] Level (05/24/2022 12:32 PM CASHIER CLERK) Lamotrigine 4.3 3.0 - 15.0 ug/mL 05/26/2022 11:45 PM CASHIER CLERK [facility] Comment: INTERPRETIVE INFORMATION: ??Lamotrigine Therapeutic Range: ??3.0-15.0 ug/mL ?Toxic: ??Greater than or equal to 20 ug/mL Pharmacokinetics varies widely, particularly with co-medications and/or compromised renal function. ??Adverse effects may include dizziness, somnolence, nausea and vomiting. Performed By: [facility] [address] [place] [address] Desktop Operator: Jaden Zimmerman MD, PhD Blood STRUCTURE OF RIGHT UPPER LIMB / Unknown Venipuncture / Unknown 05/24/2022 12:32 PM CASHIER CLERK 05/24/2022 12:32 PM CASHIER CLERK Lizeth Curiel APRN [facility] LAB - BLOOD OR DERABLES Performing Organization Address City/[facility]/ZIP Co de Phone Number [email or web address] LABS [facility] [address] [place] [address], [facility] [phone] * (ABNORMAL) UA with Microscopic (05/24/2022 12:57 AM CASHIER CLERK) Color Urine Yellow Colorless, Straw, Light Yellow, Yellow 05/24/2022 1:32 PM CASHIER CLERK [facility] Appearance Urine Clear Clear 05/24/19 1:32 PM CASHIER CLERK [facility] Glucose Urine Negative Negative mg/dL 05/24/2022 1:32 PM CASHIER CLERK [facility] Bilirubin Urine Negative Negative 3 1:32 PM CASHIER CLERK LABORATORY Ketones Urine Negative Negative mg/dL 05/24/2022 1:32 PM CASHIER CLERK LABORATORY Specific [place] Urine 1.028 1.003 - 1.035 05/24/2022 1:32 PM CASHIER CLERK LABORATORY Blood Urine Negative Negative 05/24/2022 1:32 PM CASHIER CLERK LABORATORY pH Urine 5.5 5.0 - 7.0 05/24/2022 1:32 PM CASHIER CLERK LABORATORY Protein Albumin Urine Negative Negative mg/dL 05/24/2022 1:32 PM CASHIER CLERK LABORATORY Urobilinogen Urine Normal Normal, 2.0 mg/dL 05/24/2022 1:32 PM CASHIER CLERK LABORATORY Nitrite Urine Negative Negative 05/24/2022 1:32 PM CASHIER CLERK LABORATORY Leukocyte Esterase Urine Negative Negative 05/24/2022 1:32 PM CASHIER CLERK LABORATORY Mucus Urine Present(A) None Seen /LPF 05/24/2022 1:32 PM CASHIER CLERK LABORATORY RBC Urine 1 <=2 /HPF 05/24/2022 1:32 PM CASHIER CLERK LABORATORY WBC Urine <1 <=5 /HPF 05/24/2022 1:32 PM CASHIER CLERK LABORATORY Squamous Epithelials Urine <1 <=1 /HPF 05/24/2022 1:32 PM CASHIER CLERK LABORATORY Urine URINE SPECIMEN OBTAINED BY CLEAN CATCH PROCEDURE / Unknown Non-blood Collection / Unknown 05/24/2022 12:57 AM CASHIER CLERK 05/24/2022 1:27 PM CASHIER CLERK Lizeth Curiel APRN TITLE COORDINATOR LAB - URINE OR DERABLES LABORATORY [facility] Lab [address] Lab (1st floor, no room number) [place] [address], [facility] [phone] documented in this encounter Visit Diagnoses Diagnosis High risk medication use Encounter for long-term (current) use of other medications Bipolar 1 disorder (H) Bipolar I disorder, most recent episode (or current) unspecified documented in this encounter
--- OUTSIDE RECORDS SUMMARY | 2023-04-10 13:35 | XMS_ITS | Clinical Summary ---
Author Name Unknown Organization [place] Address [address] [place] [address] Care Team Providers Care Styrene Dehydration Reactor Operator Name Role Phone Unavailable Primary Care Provider Unavailabl e Social History Tobacco Use Types Packs/Day Years Used Date Smoking Tobacco: Never Assessed Adolescent Education Answer Date Record ed Getting School Help Needed Not on file 12/23 Sex and Gender Information Value Date Recorded Sex Assigned at Not on file Gender Identity Not on file Sexual Orientation Not on file Plan of Treatment Health Maintenance Due Date Last Done Comments ADVANCE CARE PLANNING 1994 ANNUAL REVIEW OF HM ORDERS 1994 HEPATITIS B IMMUNIZATION (1 of 3 - 3-dose series) 1994 COVID-19 Vaccine (#1) 1994 HIV SCREENING 2009 HEPATITIS C SCREENING 2012 PAP 2015 PHQ-2 (once per calendar year) 2022 YEARLY PREVENTIVE VISIT 04/22/2022 04/22/2021 INFLUENZA VACCINE (#1) 2022 DTAP/TDAP/TD IMMUNIZATION (3 - Td or Tdap) 11/26/2031 11/25/2021, 06/01/2019 HPV IMMUNIZATION Aged Out No longer e ligible based on patient's age to complete this topic IPV IMMUNIZATION Aged Out No longer e ligible based on patient's age to complete this topic MENINGITIS IMMUNIZATION Aged Out No l onger eligible based on patient's age to complete this topic Pneumococcal Vaccine: Pediatrics (0 to 5 Years) and At-Risk Patients (6 to 64 Years) Aged Out No longer eligible b ased on patient's age to complete this topic RSV MONOCLONAL ANTIBODY Aged Out No l onger eligible based on patient's age to complete this topic
--- OUTSIDE RECORDS SUMMARY | 2023-04-10 13:35 | XMS_ITS | Encounter Summary ---
Author Name Unknown Organization [place] Address [address] [place] [address] Care Team Providers Care Near East Archeology Professor Name Role Phone Unavailable Primary Care Provider Unavailabl e Encounter Details Date Type Department Care Team (Late st Contact Info) Description 06/29/[address] [facility] [address] [place] [phone] Aliyah Gage High risk medication use Social History Tobacco [...] Procedure Name Priority Date/Time Associated Diagnosis Comments TSH Routine 06/29/2022 10:22 AM CDT High risk medication use THYROXINE TOTAL Routine 06/29/2022 10:22 AM CDT High risk medication use LITHIUM LEVEL Routine 06/29/2022 10:22 AM CDT High risk medication use BASIC METABOLIC PANEL Routine 06/29/2022 10:22 AM CDT High risk medication use documented in this encounter Results * (ABNORMAL) Thyroxine total (06/29/2022 10:22 AM CDT) Pathologist [facility] T4 Total 4.1(L) 4.5 - 11.7 ug/dL 06/29/2022 1:50 PM CDT [facility] Blood BLOOD SPECIMEN / Unknown Venipuncture / Unknown 06/29/2022 10:22 AM CDT 06/29/2022 10:43 AM CDT Lizeth Curiel APRN, CNP LAB - BLOOD OR DERABLES [facility] [place] [facility] Lab [address] [facility], [address] [place] [address], [place] [phone] * (ABNORMAL) TSH (06/29/2022 10:22 AM CDT) Pathologist [facility] TSH 4.67(H) 0.30 - 4.20 uIU/mL 06/29/2022 11:20 AM CDT LABORATORY Blood STRUCTURE OF LEFT UPPER LIMB / Unknown Venipuncture / Unknown 06/29/2022 10:22 AM CDT 06/29/2022 10:22 AM CDT Lizeth Curiel APRN, CNP LAB - BLOOD OR DERABLES LABORATORY [facility] Acute Care Lab [address] Lab (1st floor, no room number) [place] [address], [facility] [phone] * (ABNORMAL) Basic metabolic panel (06/29/2022 10:22 AM CDT) Pathologist [facility] Sodium 141 136 - 145 mmol/L 06/29/2022 11:14 AM CDT LABORATORY Potassium 4.2 3.4 - 5.3 mmol/L 06/29/2022 11:14 AM CDT LABORATORY Chloride 104 98 - 107 mmol/L 06/29/2022 11:14 AM CDT LABORATORY Carbon Dioxide (CO2) 28 22 - 29 mmol/L 06/29/2022 11:14 AM CDT LABORATORY Anion Gap 9 7 - 15 mmol/L 06/29/2022 11:14 AM CDT LABORATORY Urea Nitrogen 14.8 6.0 - 20.0 mg/dL 06/29/2022 11:14 AM CDT LABORATORY Creatinine 1.00(H) 0.51 - 0.95 mg/dL 06/29/2022 11:14 AM CDT LABORATORY Calcium 9.9 8.6 - 10.0 mg/dL 06/29/2022 11:14 AM CDT LABORATORY Glucose 65(L) 70 - 99 mg/dL 06/29/2022 11:14 AM CDT LABORATORY GFR Estimate 78 >60 mL/min/1.7 3m2 06/29/2022 11:14 AM CDT LABORATORY Comment:eGFR calculated usin g 2020 CKD-EPI equation. Blood STRUCTURE OF LEFT UPPER LIMB / Unknown Venipuncture / Unknown 06/29/2022 10:22 AM CDT 06/29/2022 10:22 AM CDT Lizeth Curiel APRN, CNP LAB - BLOOD OR DERABLES [facility] [address] Lab (1st floor, no room number) [place] [address], [facility] [phone] * [place] level (06/29/2022 10:22 AM CDT) [place] 0.6 0.6 - 1.2 mmol/L 06/29/2022 11:47 AM CDT LABORATORY Comment: Therapeutic: 0.60 - 1.20 mmol/L; Toxic: >2.00 mmol/L Blood STRUCTURE OF LEFT UPPER LIMB / Unknown Venipuncture / Unknown 06/29/2022 10:22 AM CDT 06/29/2022 10:22 AM CDT Lizeth Curiel APRN, CNP LAB - BLOOD OR DERABLES [facility] Acute Care Lab [address] Lab (1st floor, no room number) [place] [address], [facility] [phone] documented in this encounter Visit Diagnoses Diagnosis High risk medication use Encounter for long-term (current) use of other medications documented in this encounter
[2023-04-13 08:06] LABS: Lithium, Serum or Plasma 0.6 mmol/L (0.5-1.2)
== END 2023-04-10 13:31 | disposition home or self-care (01) ==
LOC: NPINS 13:30
PROVIDERS: Visit Provider Clinical Nurse Specialist
DX: Z79.899 Other long term (current) drug therapy (principal)
CPT/HCPCS: 80178

== ENCOUNTER 2023-07-11 12:18 | Outpatient (REF) | payer BC, SELFPAY ==
--- OUTSIDE RECORDS SUMMARY | 2023-07-11 12:22 | XMS_ITS | Encounter Summary ---
Author Name Unknown Organization [facility] Address [address] [place] [address] Care Team Providers Care Ribbon Lapper Tender Name Role Phone Unavailable Primary Care Provider Unavailabl e Encounter Details Date Type Department Care Team (Late st Contact Info) Description 05/24/2022 Orders Only [facility] [address] [place] [address] Lizeth Curiel APRN MOLD TECHNICIAN [facility] [id number] [facility] [place] [address] High risk medication use (Primary Dx); Bipolar [...] Coronavirus/COVID-19? No / Unsure 05/24/2022 12:18 PM MANAGER LAW documented as of this encounter Plan of Treatment Not on file documented as of this encounter Results * (ABNORMAL) T4 free (05/24/2022 12:32 PM MANAGER LAW) Free T4 0.71(L) 0.90 - 1.70 ng/dL 05/24/2022 1:10 PM MANAGER LAW [facility] Blood STRUCTURE OF RIGHT UPPER LIMB / Unknown Venipuncture / Unknown 05/24/2022 12:32 PM MANAGER LAW 05/24/2022 12:32 PM MANAGER LAW Lizeth Willian Veena TOTH MOLD TECHNICIAN LAB - BLOOD OR DERABLES LABORATORY [facility] [address] Lab (1st floor, no room number) [place] [address], [facility] [phone] * TSH (05/24/2022 12:32 PM MANAGER LAW) Pathologist [facility] TSH 4.09 0.30 - 4.20 uIU/mL 05/24/2022 1:10 PM MANAGER LAW LABORATORY Blood STRUCTURE OF RIGHT UPPER LIMB / Unknown Venipuncture / Unknown 05/24/2022 12:32 PM MANAGER LAW 05/24/2022 12:32 PM MANAGER LAW Lizeth Curiel APRN MOLD TECHNICIAN LAB - BLOOD OR DERABLES Performing Organization Address City/[facility]/ZIP Co de Phone Number LABORATORY [facility] [address] Lab (1st floor, no room number) [place] [address], [facility] [phone] * (ABNORMAL) Basic metabolic panel (05/24/2022 12:32 PM MANAGER LAW) [facility] Sodium 141 136 - 145 mmol/L 05/24/2022 12:58 PM MANAGER LAW LABORATORY Potassium 4.2 3.4 - 5.3 mmol/L 05/24/2022 12:58 PM [facility] Chloride 102 98 - 107 mmol/L 05/24/2022 12:58 PM [facility] Carbon Dioxide (CO2) 28 22 - 29 mmol/L 05/24/2022 12:58 PM MANAGER LAW LABORATORY Anion Gap 11 7 - 15 mmol/L 05/24/2022 12:58 PM MANAGER LAW LABORATORY Urea Nitrogen 18.1 6.0 - 20.0 mg/dL 05/24/2022 12:58 PM [facility] Creatinine 1.05(H) 0.51 - 0.95 mg/dL 05/24/2022 12:58 PM MANAGER LAW LABORATORY Calcium 9.8 8.6 - 10.0 mg/dL 05/24/2022 12:58 PM MANAGER LAW LABORATORY Glucose 70 70 - 99 mg/dL 05/24/2022 12:58 PM MANAGER LAW LABORATORY GFR Estimate 74 >60 mL/min/1.7 3m2 05/24/2022 12:58 PM MANAGER LAW LABORATORY Comment:eGFR calculated usin 2020 CKD-EPI equation. Blood STRUCTURE OF RIGHT UPPER LIMB / Unknown Venipuncture / Unknown 05/24/2022 12:32 PM MANAGER LAW 05/24/2022 12:32 PM MANAGER LAW Lizeth Curiel APRN MOLD TECHNICIAN LAB - BLOOD OR DERABLES [facility] [address] Lab (1st floor, no room number) [place] [address], [facility] [phone] * (ABNORMAL) [place] level (05/24/2022 12:32 PM MANAGER LAW) [place] 0.3(L) 0.6 - 1.2 mmol/L 05/24/2022 1:30 PM MANAGER LAW LABORATORY Comment: Therapeutic: 0.60 - 1.20 mmol/L; Toxic: >2.00 mmol/L Blood STRUCTURE OF RIGHT UPPER LIMB / Unknown Venipuncture / Unknown 05/24/2022 12:32 PM MANAGER LAW 05/24/2022 12:32 PM MANAGER LAW Lizeth Curiel APRN MOLD TECHNICIAN LAB - BLOOD OR DERABLES [facility] Lab [address] Lab (1st floor, no room number) [place] [address], [facility] [phone] * Lam[place] Level (05/24/2022 12:32 PM MANAGER LAW) Lamotrigine 4.3 3.0 - 15.0 ug/mL 05/26/2022 11:45 PM MANAGER LAW [facility] Comment: INTERPRETIVE INFORMATION: ??Lamotrigine Therapeutic Range: ??3.0-15.0 ug/mL ?Toxic: ??Greater than or equal to 20 ug/mL Pharmacokinetics varies widely, particularly with co-medications and/or compromised renal function. ??Adverse effects may include dizziness, somnolence, nausea and vomiting. Performed By: [email or web address] [address] [place] [address] Clothing Worker: Jaden Zimmerman MD, PhD Blood STRUCTURE OF RIGHT UPPER LIMB / Unknown Venipuncture / Unknown 05/24/2022 12:32 PM MANAGER LAW 05/24/2022 12:32 PM MANAGER LAW Lizeth Curiel APRN MOLD TECHNICIAN LAB - BLOOD OR DERABLES [facility] [address] [place] [address], [facility] [phone] * (ABNORMAL) UA with Microscopic (05/24/2022 12:57 AM MANAGER LAW) Color Urine Yellow Colorless, Straw, Light Yellow, Yellow 05/24/2022 1:32 PM MANAGER LAW LABORATORY Appearance Urine Clear Clear 05/24/19 1:32 PM MANAGER LAW LABORATORY Glucose Urine Negative Negative mg/dL 05/24/2022 1:32 PM MANAGER LAW LABORATORY Bilirubin Urine Negative Negative 1:32 PM MANAGER LAW LABORATORY Ketones Urine Negative Negative mg/dL 05/24/2022 1:32 PM MANAGER LAW LABORATORY Specific [place] Urine 1.028 1.003 - 1.035 05/24/2022 1:32 PM MANAGER LAW [facility] Blood Urine Negative Negative 05/24/2022 1:32 PM MANAGER LAW LABORATORY pH Urine 5.5 5.0 - 7.0 05/24/2022 1:32 PM MANAGER LAW LABORATORY Protein Albumin Urine Negative Negative mg/dL 05/24/2022 1:32 PM MANAGER LAW LABORATORY Urobilinogen Urine Normal Normal, 2.0 mg/dL 05/24/2022 1:32 PM MANAGER LAW LABORATORY Nitrite Urine Negative Negative 05/24/2022 1:32 PM MANAGER LAW LABORATORY Leukocyte Esterase Urine Negative Negative 05/24/2022 1:32 PM MANAGER LAW LABORATORY Mucus Urine Present(A) None Seen /LPF 05/24/2022 1:32 PM MANAGER LAW [facility] RBC Urine 1 <=2 /HPF 05/24/2022 1:32 PM MANAGER LAW [facility] WBC Urine <1 <=5 /HPF 05/24/2022 1:32 PM MANAGER LAW [facility] Squamous Epithelials Urine <1 <=1 /HPF 05/24/2022 1:32 PM MANAGER LAW LABORATORY Urine URINE SPECIMEN OBTAINED BY CLEAN CATCH PROCEDURE / Unknown Non-blood Collection / Unknown 05/24/2022 12:57 AM MANAGER LAW 05/24/2022 1:27 PM MANAGER LAW Lizeth Curiel APRN MOLD TECHNICIAN LAB - URINE OR DERABLES LABORATORY [facility] Lab [address] Lab (1st floor, no room number) [place] [address], [facility] [phone] documented in this encounter Visit Diagnoses Diagnosis High risk medication use- Primary Encounter for long-term (current) use of other medications Bipolar 1 disorder (H) Bipolar I disorder, most recent episode (or current) unspecified documented in this encounter
--- OUTSIDE RECORDS SUMMARY | 2023-07-11 12:22 | XMS_ITS | Clinical Summary ---
Author Name Unknown Organization [facility] Address [address] [place] [address] Care Team Providers Care Laundry Laborer Name Role Phone Unavailable Primary Care Provider [...] 1994 ANNUAL REVIEW OF HM ORDERS 1994 HIV SCREENING 2009 HEPATITIS C SCREENING 2012 HEPATITIS B IMMUNIZATION (1 of 3 - 19+ 3-dose series) 2013 PAP 2015 YEARLY PREVENTIVE VISIT 04/22/2022 04/22/2021 COVID-19 Vaccine (1 - 2022-2 4 season) 2022 INFLUENZA VACCINE (#1) 2022 PHQ-2 (once per calendar year) 2023 DTAP/TDAP/TD IMMUNIZATION (3 - Td or Tdap) [...]
--- OUTSIDE RECORDS SUMMARY | 2023-07-11 12:22 | XMS_ITS | Encounter Summary ---
Author Name Unknown Organization [facility] Address [address] [place] [address] Care Team Providers Care Biofuels Manager Name Role Phone Unavailable Primary Care Provider Unavailabl e Encounter Details Date Type Department Care Team (Late st Contact Info) Description 06/29/2022 Orders Only [facility] [address] [place] [phone] Aliyah Gage High risk medication use Social [...] LAB - BLOOD OR DERABLES [facility] [place] [facility] [address] [facility], [address] [place] [address], [place] [phone] * (ABNORMAL) TSH (06/29/2022 10:22 AM CDT) Pathologist [facility] TSH 4.67(H) 0.30 - 4.20 uIU/mL 06/29/2022 11:20 AM CDT LABORATORY Blood STRUCTURE OF LEFT UPPER LIMB / Unknown Venipuncture / Unknown 06/29/2022 10:22 AM CDT 06/29/2022 10:22 AM CDT Lizeth Curiel APRN, CNP LAB - BLOOD OR DERABLES LABORATORY [facility] Acute [facility] Lab [address] Lab (1st floor, no room number) [place] [address], [facility] [phone] * (ABNORMAL) Basic metabolic panel (06/29/2022 10:22 [...] APRN, CNP LAB - BLOOD OR DERABLES [facility] Care Lab [address] Lab (1st floor, no room number) [place] [address], [facility] [phone] * [place] level (06/29/2022 10:22 AM CDT) [place] 0.6 0.6 - 1.2 mmol/L 06/29/2022 11:47 AM CDT LABORATORY Comment: Therapeutic: 0.60 - 1.20 mmol/L; Toxic: >2.00 mmol/L Blood STRUCTURE OF LEFT UPPER LIMB / Unknown Venipuncture / Unknown 06/29/2022 10:22 AM CDT 06/29/2022 10:22 AM CDT Lizeth Curiel APRN, CNP LAB - BLOOD OR DERABLES [facility] Acute Care Lab [address] Lab (1st floor, no room number) [place] [address], [facility] [phone] documented in this encounter Visit Diagnoses Diagnosis High risk medication use Encounter for long-term (current) use of other medications documented in this encounter
--- OUTSIDE RECORDS SUMMARY | 2023-07-11 12:22 | XMS_ITS | Referral Summary ---
Author Name Unknown Organization [facility] Address [address] [place] [address] Care Team Providers Care Plastic Card Grader Cardroom Name Role Phone Unavailable Primary Care Provider [...]
--- OUTSIDE RECORDS SUMMARY | 2023-07-11 12:23 | XMS_ITS | Clinical Summary ---
Author Name Unknown Organization [facility] Address [place], [place] [address] Care Team Providers Care Oxygen System Tester Name Role Phone Aydee Roberson MD Primary Care Provider [phone] Allergies Active Allergy Reactions Criticality Noted Date [...] by mouth every 6 hours if needed. 05/28/2022 Active lamoTRIgine (LAMICTAL) 200 mg tablet Take 800 mg by mouth two times daily. 09/11/2022 Active lamoTRIgine (LAMICTAL) 100 mg tablet Take 100 mg by mouth once daily. 01/17/2022 Active lithium carbonate (LITHONATE) 300 mg capsule Take 900 mg by mouth two times daily. 09/11/2022 Active QUEtiapine (SEROQUEL) 100 mg tablet Take 100 mg by mouth two times daily. 09/11/2022 Active QUEtiapine (SEROQUEL) 50 mg tablet Take 50 mg by mouth. 09/11/2022 Active Active Problems Problem Noted Date Diagnosed Date Pap smear for cervical cancer screening 04/22/19 22 Overview: 04/2021 NIL Plan: Pap/HPV due 04/2024 Major depressive disorder, recurrent, moderate 1 05/07/2020 Suicidal ideation 03/06/2021 Anxiety 03/06/2021 Immunizations Name Administration Dates Next Due COVID-19 vaccine (Pfizer-Bio NTech 30mcg/0.3mL) 12YO+ BIVALENT PF, MDV 10/04/2022 [...] - Respiratory Rate 13 06/09/2021 1:09 PM BOAT AND PLANT UTILITY SUPERVISOR Oxygen Saturation 96% 10/04/2022 3:02 PM CDT [...] COVID-19 vaccine series ( season) 2022 10/04/2022 BMI (ht and wt on same day) for age 18+ 10/05/2023 10/04/2022, 04/22/2021, 02/21/2021 Depression screening for age 12+ 10/07/2023 10/06/2022, 10/04/2022, 04/22/2021, Additional history exists Influenza for age 9-49 12/02/2023 Pap test for age 21-65 04/22/2024 04/22/2021 Tetanus booster 11/26/2031 11/25/2021, 06/01/2019 Tdap Completed 11/25/2021, 06/01/2019 Pneumococcal series for age 6-64 Aged Out No longer eligible based on patient's age to complete this topic Procedures Procedure Name Priority Date/Time Associated Diagnosis Comments BAKER PAINT THIN PREP PAP SCREEN IMAGED Routine 04/22/2021 10:32 AM BOAT AND PLANT UTILITY SUPERVISOR Pap smear for cervical cancer screening from Last 3 Months or Most Recently Relevant to Health Maintenance Results * BAKER PAINT THIN PREP PAP SCREEN IMAGED (04/22/2021 10:32 AM BOAT AND PLANT UTILITY SUPERVISOR) Case Report Gynecologic Cytology Report ? Case: [id number] ? Authorizing Provider: ??Cristal Portillo, ??Collected: ? 04/22/2021 1032 ? PA ? Ordering Location: ? [facility] ?? Received: ?04/22/2021 1214 ? Clinic ? First Screen: ?Halima Bridges ? Specimen: ?BAKER PAINT ThinPrep Vial Screening, Cervical ? 05/02/2021 9:20 AM [facility] LAB[facility]AT[facility]-C ENTRAL LABORATORY INTERPRETATION/ RESULT NEGATIVE FOR INTRAEPITHELIAL LESION OR MALIGNANCY (NIL) (none) 05/02/2021 9:20 AM [facility] LABORATORY-C ENTRAL LABORATORY IMEN ADEQUACY Satisfactory for evaluation Endocervical component present 05/02/2021 9:20 AM [facility] LABORATORY-C ENTRAL LABORATORY HPV REQUEST HPV if ASCUS 05/02/2021 9:20 AM [facility] LABORATORY-C ENTRAL LABORATORY Date of LMP 03/30/21 05/02/2021 9:20 AM [facility]-C ENTRAL LABORATORY Last Pap Date 201805/02/2021 9:20 AM [facility]-C ENTRAL LABORATORY Last Pap Result NIL 9:20 AM [facility]-C ENTRAL LABORATORY Abnormal Pap or Emmett Bx in last 5 years No 05/02/2021 9:20 AM BOAT AND PLANT UTILITY SUPERVISOR [facility] LABORATORY-C ENTRAL LABORATORY Menstrual Status Regular Periods 05/02/2021 9:20 AM BOAT AND PLANT UTILITY SUPERVISOR [facility] LABORATORY- ENTRAL LABORATORY Emmett Bx Done Today No 05/02/2021 9:20 AM BOAT AND PLANT UTILITY SUPERVISOR [facility]-C ENTRAL LABORATORY Additional Information None given 05/02/2021 9:20 AM BOAT AND PLANT UTILITY SUPERVISOR [facility] LABORATORY-C ENTRAL LABORATORY Comment: Cytology is screened at [facility] Laboratory - [address], [place] [address] and [facility] Laboratory - [address], [place] [address] and [facility] Laboratory - [address] [place] [address] Interpreted at [facility] - [address] [place] [address] Automated Review Successful 05/02/2021 9:20 AM BOAT AND PLANT UTILITY SUPERVISOR [facility] LABORATORY- ENTRAL LABORATORY Comment:Specimen processed s uccessfully by automated oven dauber device, ThinPrep Imaging System, [employer] Note The pap test is a screening technique, not a diagnostic procedure. It is used primarily to screen for squamous cancers and precursor lesions. Published studies have shown that it is subject to both false negative and false positive results. The pap test should not be used as the sole means to diagnose or exclude pre-malignant and malignant lesions. 05/02/2021 9:20 AM BOAT AND PLANT UTILITY SUPERVISOR [facility] ENTRNY LABORATORY Other (Cervical) Non-Blood / Unknown 04/22/2021 10:32 AM BOAT AND PLANT UTILITY SUPERVISOR 04/22/2021 12:14 PM BOAT AND PLANT UTILITY SUPERVISOR Cristal ALEJANDRE PATHOLOGY/CYT OLOGY [facility] [address] [place] [address], [place] from Last 3 Months or Most Recently Relevant to Health Maintenance Care Teams Oxygen System Tester Relationship Specialty Start Date End Date Aydee Roberson MD [address] [place] [address] PCP - General Family Practice 10/06/22
[2023-07-12 23:54] LABS: Lithium, Serum or Plasma 0.7 mmol/L (0.5-1.2)
== END 2023-07-11 12:19 | disposition home or self-care (01) ==
LOC: NPINS 12:18
PROVIDERS: Visit Provider Clinical Nurse Specialist
DX: Z79.899 Other long term (current) drug therapy (principal)
CPT/HCPCS: 80178

== ENCOUNTER 2023-10-07 12:45 | Outpatient (RCR) | payer BC, SELFPAY ==
--- OUTSIDE RECORDS SUMMARY | 2023-09-06 11:35 | XMS_ITS | Referral Summary ---
Author Organization [place] Address [address] [place] [address] Care Team Providers Care University Relations Director Name Role Phone Unavailable Primary Care Provider [...]
--- OUTSIDE RECORDS SUMMARY | 2023-09-06 11:35 | XMS_ITS | Clinical Summary ---
Author Organization [facility] Address [address] [place] [address] Care Team Providers Care Buck Presser Name Role Phone Unavailable Primary Care Provider [...] Vaccine (1 - 2022-2 4 season) 2022 PHQ-2 (once per calendar year) 2023 INFLUENZA VACCINE (Season Ended) 2023 DTAP/TDAP/TD IMMUNIZATION (3 - Td or [...]
--- OUTSIDE RECORDS SUMMARY | 2023-09-06 11:35 | XMS_ITS | Encounter Summary ---
Author Organization [facility] Address [address] [place] [address] Care Team Providers Care Brothel Keeper Name Role Phone Unavailable Primary Care Provider Unavailabl e Encounter Details Date Type Department Care Team (Late st Contact Info) Description 06/29/2022 Orders Only [facility] [address] [place] [address] Aliyah Gage High risk medication use Social [...] LAB - BLOOD OR DERABLES [facility] LAB[facility] [place] [facility] [address] [facility], [address] [place] [address], [facility] [phone] * (ABNORMAL) TSH (06/29/2022 10:22 AM CDT) Pathologist [facility] TSH 4.67(H) 0.30 - 4.20 uIU/mL 06/29/2022 11:20 AM CDT LABORATORY Blood STRUCTURE OF LEFT UPPER LIMB / Unknown Venipuncture / Unknown 06/29/2022 10:22 AM CDT 06/29/2022 10:22 AM CDT Lizeth Curiel APRN, CNP LAB - BLOOD OR DERABLES LABORATORY [facility] Acute Care Lab [address] Lab (1st floor, no room number) [place] [address], [facility] [phone] * (ABNORMAL) Basic metabolic panel (06/29/2022 10:22 [...] APRN, CNP LAB - BLOOD OR DERABLES [facility] Acute Care Lab [address] Lab (1st floor, no room number) [place] [address], [facility] [phone] * [place] level (06/29/2022 10:22 AM CDT) [place] 0.6 0.6 - 1.2 mmol/L 06/29/2022 11:47 AM CDT LABORATORY Comment: Therapeutic: 0.60 - 1.20 mmol/L; Toxic: >2.00 mmol/L Blood STRUCTURE OF LEFT UPPER LIMB / Unknown Venipuncture / Unknown 06/29/2022 10:22 AM CDT 06/29/2022 10:22 AM CDT Lizeth Curiel APRN, CNP LAB - BLOOD OR DERABLES [facility] Acute Care Lab [address] Lab (1st floor, no room number) [place] [address] [phone] documented in this encounter Visit Diagnoses Diagnosis High risk medication use Encounter for long-term (current) use of other medications documented in this encounter
--- OUTSIDE RECORDS SUMMARY | 2023-09-06 11:35 | XMS_ITS | Encounter Summary ---
Author Organization [facility] Address [address] [place] [address] Care Team Providers Care College Instructor Name Role Phone Unavailable Primary Care Provider Unavailabl e Encounter Details Date Type Department Care Team (Late st Contact Info) Description 05/24/2022 Orders Only [facility] [address] [place] [phone] Lizeth Curiel APRN DEPORTATION OFFICER [facility] [address] [address] [address] [place] [address] High risk medication use (Primary Dx); Bipolar [...] Coronavirus/COVID-19? No / Unsure 05/24/2022 12:18 PM LICENSED OPTICAL DISPENSER documented as of this encounter Plan of Treatment Not on file documented as of this encounter Results * (ABNORMAL) T4 free (05/24/2022 12:32 PM LICENSED OPTICAL DISPENSER) Free T4 0.71(L) 0.90 - 1.70 ng/dL 05/24/2022 1:10 PM LICENSED OPTICAL DISPENSER [facility] LABORATORY Blood STRUCTURE OF RIGHT UPPER LIMB / Unknown Venipuncture / Unknown 05/24/2022 12:32 PM LICENSED OPTICAL DISPENSER 05/24/2022 12:32 PM LICENSED OPTICAL DISPENSER Lizeth Willian Loradoroteo NAVNEET DEPORTATION OFFICER LAB - BLOOD OR DERABLES LABORATORY [facility] [address] Lab (1st floor, no room number) [place] [address], [facility] [phone] * TSH (05/24/2022 12:32 PM LICENSED OPTICAL DISPENSER) Pathologist [facility] TSH 4.09 0.30 - 4.20 uIU/mL 05/24/2022 1:10 PM LICENSED OPTICAL DISPENSER LABORATORY Blood STRUCTURE OF RIGHT UPPER LIMB / Unknown Venipuncture / Unknown 05/24/2022 12:32 PM LICENSED OPTICAL DISPENSER 05/24/2022 12:32 PM LICENSED OPTICAL DISPENSER Lizeth Curiel APRN DEPORTATION OFFICER LAB - BLOOD OR DERABLES Performing Organization Address City/[facility]/ZIP Co de Phone Number LABORATORY [facility] [address] Lab (1st floor, no room number) [place] [address], [facility] [phone] * (ABNORMAL) Basic metabolic panel (05/24/2022 12:32 PM LICENSED OPTICAL DISPENSER) [facility] Sodium 141 136 - 145 mmol/L 05/24/2022 12:58 PM [facility] Potassium 4.2 3.4 - 5.3 mmol/L 05/24/2022 12:58 PM [facility] Chloride 102 98 - 107 mmol/L 05/24/2022 12:58 PM [facility] Carbon Dioxide (CO2) 28 22 - 29 mmol/L 05/24/2022 12:58 PM [facility] Anion Gap 11 7 - 15 mmol/L 05/24/2022 12:58 PM [facility] Urea Nitrogen 18.1 6.0 - 20.0 mg/dL 05/24/2022 12:58 PM [facility] Creatinine 1.05(H) 0.51 - 0.95 mg/dL 05/24/2022 12:58 PM [facility] Calcium 9.8 8.6 - 10.0 mg/dL 05/24/2022 12:58 PM LICENSED OPTICAL DISPENSER LABORATORY Glucose 70 70 - 99 mg/dL 05/24/2022 12:58 PM LICENSED OPTICAL DISPENSER RH LABORATORY GFR Estimate 74 >60 mL/min/1.7 3m2 05/24/2022 12:58 PM LICENSED OPTICAL DISPENSER LABORATORY Comment:eGFR calculated usin 2020 CKD-EPI equation. Blood STRUCTURE OF RIGHT UPPER LIMB / Unknown Venipuncture / Unknown 05/24/2022 12:32 PM LICENSED OPTICAL DISPENSER 05/24/2022 12:32 PM LICENSED OPTICAL DISPENSER Lizeth Curiel APRN DEPORTATION OFFICER LAB - BLOOD OR DERABLES [facility] [address] Lab (1st floor, no room number) [place] [address], [facility] [phone] * (ABNORMAL) [place] level (05/24/2022 12:32 PM LICENSED OPTICAL DISPENSER) [place] 0.3(L) 0.6 - 1.2 mmol/L 05/24/2022 1:30 PM LICENSED OPTICAL DISPENSER LABORATORY Comment: Therapeutic: 0.60 - 1.20 mmol/L; Toxic: >2.00 mmol/L Blood STRUCTURE OF RIGHT UPPER LIMB / Unknown Venipuncture / Unknown 05/24/2022 12:32 PM LICENSED OPTICAL DISPENSER 05/24/2022 12:32 PM LICENSED OPTICAL DISPENSER Lizeth Curiel APRN DEPORTATION OFFICER LAB - BLOOD OR DERABLES Performing Organization Address City/[facility]/ZIP Co de Phone Number [facility] [address] Lab (1st floor, no room number) [place] [address], [facility] [phone] * Lamotrigine Level (05/24/2022 12:32 PM LICENSED OPTICAL DISPENSER) Lamotrigine 4.3 3.0 - 15.0 ug/mL 05/26/2022 11:45 PM LICENSED OPTICAL DISPENSER [facility] Comment: INTERPRETIVE INFORMATION: ??Lamotrigine Therapeutic Range: ??3.0-15.0 ug/mL ?Toxic: ??Greater than or equal to 20 ug/mL Pharmacokinetics varies widely, particularly with co-medications and/or compromised renal function. ??Adverse effects may include dizziness, somnolence, nausea and vomiting. Performed By: [facility] [address] [place] [address] Account Contact Associate: Jaden Zimmerman MD, PhD Blood STRUCTURE OF RIGHT UPPER LIMB / Unknown Venipuncture / Unknown 05/24/2022 12:32 PM LICENSED OPTICAL DISPENSER 05/24/2022 12:32 PM LICENSED OPTICAL DISPENSER Lizeth Curiel APRN DEPORTATION OFFICER LAB - BLOOD OR DERABLES [employer] [address] [place] [address], [facility] [phone] * (ABNORMAL) UA with Microscopic (05/24/2022 12:57 AM LICENSED OPTICAL DISPENSER) Color Urine Yellow Colorless, Straw, Light Yellow, Yellow 05/24/2022 1:32 PM LICENSED OPTICAL DISPENSER LABORATORY Appearance Urine Clear Clear 05/24/19 1:32 PM LICENSED OPTICAL DISPENSER LABORATORY Glucose Urine Negative Negative mg/dL 05/24/2022 1:32 PM LICENSED OPTICAL DISPENSER LABORATORY Bilirubin Urine Negative Negative 1:32 PM LICENSED OPTICAL DISPENSER RH LABORATORY Ketones Urine Negative Negative mg/dL 05/24/2022 1:32 PM LICENSED OPTICAL DISPENSER LABORATORY Specific [place] Urine 1.028 1.003 - 1.035 05/24/2022 1:32 PM LICENSED OPTICAL DISPENSER RH LABORATORY Blood Urine Negative Negative 05/24/2022 1:32 PM LICENSED OPTICAL DISPENSER LABORATORY pH Urine 5.5 5.0 - 7.0 05/24/2022 1:32 PM LICENSED OPTICAL DISPENSER LABORATORY Protein Albumin Urine Negative Negative mg/dL 05/24/2022 1:32 PM LICENSED OPTICAL DISPENSER LABORATORY Urobilinogen Urine Normal Normal, 2.0 mg/dL 05/24/2022 1:32 PM LICENSED OPTICAL DISPENSER RH LABORAT[facility] Nitrite Urine Negative Negative 05/24/2022 1:32 PM LICENSED OPTICAL DISPENSER RH LABORATORY Leukocyte Esterase Urine Negative Negative 05/24/2022 1:32 PM LICENSED OPTICAL DISPENSER LABORATORY Mucus Urine Present(A) None Seen /LPF 05/24/2022 1:32 PM LICENSED OPTICAL DISPENSER RH LABORATORY RBC Urine 1 <=2 /HPF 05/24/2022 1:32 PM LICENSED OPTICAL DISPENSER RH LABORATORY WBC Urine <1 <=5 /HPF 05/24/2022 1:32 PM LICENSED OPTICAL DISPENSER RH LABORATORY Squamous Epithelials Urine <1 <=1 /HPF 05/24/2022 1:32 PM LICENSED OPTICAL DISPENSER RH LABORATORY Urine URINE SPECIMEN OBTAINED BY CLEAN CATCH PROCEDURE / Unknown Non-blood Collection / Unknown 05/24/2022 12:57 AM LICENSED OPTICAL DISPENSER 05/24/2022 1:27 PM LICENSED OPTICAL DISPENSER Lizeth Curiel APRN DEPORTATION OFFICER LAB - URINE OR DERABLES LABORATORY [facility] [address] Lab (1st floor, no room number) [place] [address], [facility] [phone] documented in this encounter Visit Diagnoses Diagnosis High risk medication use- Primary Encounter for long-term (current) use of other medications Bipolar 1 disorder (H) Bipolar I disorder, most recent episode (or current) unspecified documented in this encounter
--- OUTSIDE RECORDS SUMMARY | 2023-09-06 11:35 | XMS_ITS | Clinical Summary ---
Author Organization [facility] Address [place], [place] [address] Care Team Providers Care Bi Developer Name Role Phone Aydee Roberson MD Primary Care Provider [phone]- [phone] Allergies Active Allergy Reactions Criticality Noted Date [...] - Respiratory Rate 13 06/09/2021 1:09 PM RN HOME HEALTH Oxygen Saturation 96% 10/04/2022 3:02 PM CDT [...] Procedure Name Priority Date/Time Associated Diagnosis Comments BUHR MILL OPERATOR THIN PREP PAP SCREEN IMAGED Routine 04/22/2021 10:32 AM RN HOME HEALTH Pap smear for cervical cancer screening from Last 3 Months or Most Recently Relevant to Health Maintenance Results * BUHR MILL OPERATOR THIN PREP PAP SCREEN IMAGED (04/22/2021 10:32 AM RN HOME HEALTH) Case Report Gynecologic Cytology Report ? Case: [id number] ? Authorizing Provider: ??Cristal Portillo, ??Collected: ? 04/22/2021 1032 ? PA ? Ordering Location: ? [facility] ?? Received: ?04/22/2021 1214 ? Clinic ? First Screen: ?Halima Bridges ? Specimen: ?BUHR MILL OPERATOR ThinPrep Vial Screening, Cervical ? 05/02/2021 9:20 AM [facility] INTERPRETATION/ RESULT NEGATIVE FOR INTRAEPITHELIAL LESION OR MALIGNANCY (NIL) (none) 05/02/2021 9:20 AM [facility] [employer] LABORATORY-C ENTRAL LABORATORY IMEN ADEQUACY Satisfactory for evaluation Endocervical component present 05/02/2021 9:20 AM [facility] ENTRAL LABORAT[facility] HPV REQUEST HPV if ASCUS 05/02/2021 9:20 AM [facility] [employer] LABORATORY-C ENTRAL LABORATORY Date of LMP 03/30/21 05/02/2021 9:20 AM [facility] [employer] LABORATORY-C ENTRAL LABORATORY Last Pap Date 2019 05/02/2021 9:20 AM [facility] Last Pap Result NIL 9:20 AM [facility]AL LAB[facility]ATORY Abnormal Pap or [place] Bx in last 5 years No 05/02/2021 9:20 AM RN [facility] HE[facility] LABORATORY-C ENTRAL LABORATORY Menstrual Status Regular Periods 05/02/2021 9:20 AM RN HOME HEALTH [facility] ENTRAL LABORATORY [place] Bx Done Today No 05/02/2021 9:20 AM RN [facility] HEALTH [facility] ENTRDE LABORATORY Additional Information None given 05/02/2021 9:20 AM RN [facility] LABORATORY- ENTRAL LABORATORY Comment: Cytology is screened at [facility] Laboratory - [address], [place] [address] and [facility] - [address], [place] [address] and [facility] - [address] [place] [address] Interpreted at [facility] - [address] [place] [address] Automated Review Successful 05/02/2021 9:20 AM RN [facility] HEALTH [facility] ENTRAL LABORATORY Comment:Specimen processed s uccessfully by automated stave inspector device, ThinPrep Imaging System, [employer] Note The pap test is a screening technique, not a diagnostic procedure. It is used primarily to screen for squamous cancers and precursor lesions. Published studies have shown that it is subject to both false negative and false positive results. The pap test should not be used as the sole means to diagnose or exclude pre-malignant and malignant lesions. 05/02/2021 9:20 AM RN [facility] HEALTH [facility] ENTRDE LABORATORY Other (Cervical) Non-Blood / Unknown 04/22/2021 10:32 AM RN HOME HEALTH 04/22/2021 12:14 PM RN HOME HEALTH Cristal ALEJANDRE PATHOLOGY/[facility]T [facility] [address] [place] [address], [place] from Last 3 Months or Most Recently Relevant to Health Maintenance Care Teams Bi Developer Relationship Specialty Start Date End Date Adyee Roberson MD [address] [place] [address] PCP - General Family Practice 10/06/22
== END 2024-09-30 11:24 | disposition home or self-care (01) ==
LOC: NPINS 12:45
PROVIDERS: Visit Provider Clinical Nurse Specialist
DX: Z79.899 Other long term (current) drug therapy (principal); Z13.9 Encounter for screening, unspecified
CPT/HCPCS: 36415; 80178

== ENCOUNTER 2023-11-01 09:31 | Outpatient (CLI) | payer BC, SELFPAY ==
--- OUTSIDE RECORDS SUMMARY | 2023-11-03 06:37 | XMS_ITS | Encounter Summary ---
Author Organization [facility] Address [address] [place] [address] Care Team Providers Care Take Off Worker Name Role Phone Unavailable Primary Care Provider Unavailabl e Encounter Details Date Type Department Care Team (Late st Contact Info) Description 05/24/2022 Orders Only [facility] [address] [place] [address] Lizeth Curiel APRN EMERY GRINDER [facility] [address] [address] [address] [facility] [place] [address] High risk medication use (Primary Dx); Bipolar [...] Coronavirus/COVID-19? No / Unsure 05/24/2022 12:18 PM STOCK SHAPER documented as of this encounter Plan of Treatment Not on file documented as of this encounter Results * (ABNORMAL) T4 free (05/24/2022 12:32 PM STOCK SHAPER) Free T4 0.71(L) 0.90 - 1.70 ng/dL 05/24/2022 1:10 PM STOCK SHAPER [facility] LABORATORY Blood STRUCTURE OF RIGHT UPPER LIMB / Unknown Venipuncture / Unknown 05/24/2022 12:32 PM STOCK SHAPER 05/24/2022 12:32 PM STOCK SHAPER Lizeth Willian Loradoroteo NAVNEET EMERY GRINDER LAB - BLOOD OR DERABLES LABORATORY [facility] [address] Lab (1st floor, no room number) [place] [address], [facility] [phone] * TSH (05/24/2022 12:32 PM STOCK SHAPER) Pathologist [facility] TSH 4.09 0.30 - 4.20 uIU/mL 05/24/2022 1:10 PM STOCK SHAPER LABORATORY Blood STRUCTURE OF RIGHT UPPER LIMB / Unknown Venipuncture / Unknown 05/24/2022 12:32 PM STOCK SHAPER 05/24/2022 12:32 PM STOCK SHAPER Lizeth Curiel APRN EMERY GRINDER LAB - BLOOD OR DERABLES Performing Organization Address City/[facility]/ZIP Co de Phone Number LABORATORY [facility] Lab [address] Lab (1st floor, no room number) [place] [address], [facility] [phone] * (ABNORMAL) Basic metabolic panel (05/24/2022 12:32 PM STOCK SHAPER) [facility] Sodium 141 136 - 145 mmol/L 05/24/2022 12:58 PM [facility] LABORATORY Potassium 4.2 3.4 - 5.3 mmol/L 05/24/2022 12:58 PM [facility] LABORATORY Chloride 102 98 - 107 mmol/L 05/24/2022 12:58 PM [facility] LABORATORY Carbon Dioxide (CO2) 28 22 - 29 mmol/L 05/24/2022 12:58 PM [facility] LABORATORY Anion Gap 11 7 - 15 mmol/L 05/24/2022 12:58 PM [facility] LABORATORY Urea Nitrogen 18.1 6.0 - 20.0 mg/dL 05/24/2022 12:58 PM [facility] LABORATORY Creatinine 1.05(H) 0.51 - 0.95 mg/dL 05/24/2022 12:58 PM [facility] LABORATORY Calcium 9.8 8.6 - 10.0 mg/dL 05/24/2022 12:58 PM STOCK SHAPER LABORATORY Glucose 70 70 - 99 mg/dL 05/24/2022 12:58 PM STOCK SHAPER RH LABORATORY GFR Estimate 74 >60 mL/min/1.7 3m2 05/24/2022 12:58 PM STOCK SHAPER LABORATORY Comment:eGFR calculated usin 2020 CKD-EPI equation. Blood STRUCTURE OF RIGHT UPPER LIMB / Unknown Venipuncture / Unknown 05/24/2022 12:32 PM STOCK SHAPER 05/24/2022 12:32 PM STOCK SHAPER Lizeth Curiel APRN EMERY GRINDER LAB - BLOOD OR DERABLES [facility] [address] Lab (1st floor, no room number) [place] [address], [facility] [phone] * (ABNORMAL) [place] level (05/24/2022 12:32 PM STOCK SHAPER) [place] 0.3(L) 0.6 - 1.2 mmol/L 05/24/2022 1:30 PM STOCK SHAPER LABORATORY Comment: Therapeutic: 0.60 - 1.20 mmol/L; Toxic: >2.00 mmol/L Blood STRUCTURE OF RIGHT UPPER LIMB / Unknown Venipuncture / Unknown 05/24/2022 12:32 PM STOCK SHAPER 05/24/2022 12:32 PM STOCK SHAPER Lizeth Curiel APRN EMERY GRINDER LAB - BLOOD OR DERABLES Performing Organization Address City/[facility]/ZIP Co de Phone Number [facility] [address] Lab (1st floor, no room number) [place] [address], [facility] [phone] * Lamotrigine Level (05/24/2022 12:32 PM STOCK SHAPER) Lamotrigine 4.3 3.0 - 15.0 ug/mL 05/26/2022 11:45 PM STOCK SHAPER [facility] Comment: INTERPRETIVE INFORMATION: ??Lamotrigine Therapeutic Range: ??3.0-15.0 ug/mL ?Toxic: ??Greater than or equal to 20 ug/mL Pharmacokinetics varies widely, particularly with co-medications and/or compromised renal function. ??Adverse effects may include dizziness, somnolence, nausea and vomiting. Performed By: [facility] [address] [place] [address] Senior Data Warehouse Architect: Jaden Zimmerman MD, PhD Blood STRUCTURE OF RIGHT UPPER LIMB / Unknown Venipuncture / Unknown 05/24/2022 12:32 PM STOCK SHAPER 05/24/2022 12:32 PM STOCK SHAPER Lizeth Curiel APRN EMERY GRINDER LAB - BLOOD OR DERABLES [employer] [address] [place] [id number], [facility] [phone] * (ABNORMAL) UA with Microscopic (05/24/2022 12:57 AM STOCK SHAPER) Color Urine Yellow Colorless, Straw, Light Yellow, Yellow 05/24/2022 1:32 PM STOCK SHAPER LABORATORY Appearance Urine Clear Clear 05/24/19 1:32 PM STOCK SHAPER LABORATORY Glucose Urine Negative Negative mg/dL 05/24/2022 1:32 PM STOCK SHAPER LABORATORY Bilirubin Urine Negative Negative 1:32 PM STOCK SHAPER RH LABORATORY Ketones Urine Negative Negative mg/dL 05/24/2022 1:32 PM STOCK SHAPER LABORATORY Specific [place] Urine 1.028 1.003 - 1.035 05/24/2022 1:32 PM STOCK SHAPER RH LABORATORY Blood Urine Negative Negative 05/24/2022 1:32 PM STOCK SHAPER LABORATORY pH Urine 5.5 5.0 - 7.0 05/24/2022 1:32 PM STOCK SHAPER LABORATORY Protein Albumin Urine Negative Negative mg/dL 05/24/2022 1:32 PM STOCK SHAPER LABORATORY Urobilinogen Urine Normal Normal, 2.0 mg/dL 05/24/2022 1:32 PM STOCK SHAPER RH LABORATORY Nitrite Urine Negative Negative 05/24/2022 1:32 PM STOCK SHAPER RH LABORATORY Leukocyte Esterase Urine Negative Negative 05/24/2022 1:32 PM STOCK SHAPER LABORATORY Mucus Urine Present(A) None Seen /LPF 05/24/2022 1:32 PM STOCK SHAPER RH LABORATORY RBC Urine 1 <=2 /HPF 05/24/2022 1:32 PM STOCK SHAPER RH LABORATORY WBC Urine <1 <=5 /HPF 05/24/2022 1:32 PM STOCK SHAPER RH LABORATORY Squamous Epithelials Urine <1 <=1 /HPF 05/24/2022 1:32 PM STOCK SHAPER RH LABORATORY Urine URINE SPECIMEN OBTAINED BY CLEAN CATCH PROCEDURE / Unknown Non-blood Collection / Unknown 05/24/2022 12:57 AM STOCK SHAPER 05/24/2022 1:27 PM STOCK SHAPER Lizeth Curiel APRN EMERY GRINDER LAB - URINE OR DERABLES LABORATORY [facility] [address] Lab (1st floor, no room number) [place] [address], [facility] [phone] documented in this encounter Visit Diagnoses Diagnosis High risk medication use- Primary Encounter for long-term (current) use of other medications Bipolar 1 disorder (H) Bipolar I disorder, most recent episode (or current) unspecified documented in this encounter
--- OUTSIDE RECORDS SUMMARY | 2023-11-03 06:37 | XMS_ITS | Clinical Summary ---
Author Organization [facility] Address [place], [place] [address] Care Team Providers Care Development And Planning Engineer Name Role Phone Aydee Roberson MD Primary Care Provider +1- [phone] Allergies Active Allergy Reactions Criticality Noted Date [...] Outcome GA Total Labor Labor/2nd/3rd Weight Sex Type Anes PTL Loly A1 A5 Name Clin Last Filed Vital Signs Vital Sign Reading Time Taken Comments Blood Pressure 115/73 10/04/2022 3:02 PM CDT Pulse 78 10/04/2022 3:02 PM CDT Temperature - - Respiratory Rate 13 06/09/2021 1:09 PM [employer] ASSEMBLER Oxygen Saturation 96% 10/04/2022 3:02 PM CDT [...] Procedure Name Priority Date/Time Associated Diagnosis Comments MINE ENGINEERING MANAGER THIN PREP PAP SCREEN IMAGED Routine 04/22/2021 10:32 AM [employer] ASSEMBLER Pap smear for cervical cancer screening from Last 3 Months or Most Recently Relevant to Health Maintenance Results * MINE ENGINEERING MANAGER THIN PREP PAP SCREEN IMAGED (04/22/2021 10:32 AM [employer] I ASSEMBLER) Case Report Gynecologic Cytology Report ? Case: [id number] ? Authorizing Provider: ??Cristal Portillo, ??Collected: ? 04/22/2021 1032 ? PA ? Ordering Location: ? [facility] ?? Received: ?04/22/2021 1214 ? Clinic ? First Screen: ?Halima Bridges ? Specimen: ?MINE ENGINEERING MANAGER ThinPrep Vial Screening, Cervical ? 05/02/2021 9:20 AM [facility] INTERPRETATION/ RESULT NEGATIVE FOR INTRAEPITHELIAL LESION OR MALIGNANCY (NIL) (none) 05/02/2021 9:20 AM [facility]-C ENTRAL LABORATORY IMEN ADEQUACY Satisfactory for evaluation Endocervical component present 05/02/2021 9:20 AM [facility] ENTRAL LABORATORY HPV REQUEST HPV if ASCUS 05/02/2021 9:20 AM [facility] [employer] LABORATORY-C ENTRAL LABORATORY Date of LMP 03/30/21 05/02/2021 9:20 AM [facility]-C ENTRAL LABORATORY Last Pap Date 2019 05/02/2021 9:20 AM [facility] LABORAT[facility] Last Pap Result NIL 9:20 AM [facility] ENTRAL LABORATORY Abnormal Pap or [place] Bx in last 5 years No 05/02/2021 9:20 AM [employer] I ASSEMBLER [facility] LABORATORY- ENTRAL LABORATORY Menstrual Status Regular Periods 05/02/2021 9:20 AM [employer] PR[employer] I ASSEMBLER [facility] EN[facility] LABORAT[facility] [place] Bx Done Today No 05/02/2021 9:20 AM [employer] PRODUCTS I ASSEMBLER [facility] ENTRNJ LABORATORY Additional Information None given 05/02/2021 9:20 AM [employer] I ASSEMBLER [facility] LABORATORY- ENTRAL LABORATORY Comment: Cytology is screened at [facility] - [address], [place] [address] and [facility] - [address], [place] [address] [address] [facility] - [address] [place] [address] Interpreted at [facility] - [address] [place] [address] Automated Review Successful 05/02/2021 9:20 AM [employer] I ASSEMBLER [facility] ENTRNJ LABORATORY Comment:Specimen processed s uccessfully by automated clinical education manager device, ThinPrep Imaging System, [employer] Note The pap test is a screening technique, not a diagnostic procedure. It is used primarily to screen for squamous cancers and precursor lesions. Published studies have shown that it is subject to both false negative and false positive results. The pap test should not be used as the sole means to diagnose or exclude pre-malignant and malignant lesions. 05/02/2021 9:20 AM [employer] PR[employer]CTS I ASSEMBLER [facility] LABORATORY Other (Cervical) Non-Blood / Unknown 04/22/2021 10:32 AM [employer] I ASSEMBLER 04/22/2021 12:14 PM [employer] I ASSEMBLER Cristal ALEJANDRE PATHOLOGY/CYT OLOGY [facility] LABORATORY [address] [place] [address], [place] from Last 3 Months or Most Recently Relevant to Health Maintenance Care Teams Development And Planning Engineer Relationship Specialty Start Date End Date Aydee Roberson MD [address] [facility] [address] PCP - General Family Practice 10/06/22
--- OUTSIDE RECORDS SUMMARY | 2023-11-03 06:37 | XMS_ITS | Encounter Summary ---
Author Organization [place] Address [address] [place] [address] Care Team Providers Care Fitness Coordinator Name Role Phone Unavailable Primary Care Provider Unavailabl e Encounter Details Date Type Department Care Team (Late st Contact Info) Description 06/29/2022 Orders Only [facility] [address] [place] [address] Aliyah Gage High risk medication use Social [...] LAB - BLOOD OR DERABLES [facility] [address] [facility], Room [address] [place] [address], [facility] [phone] * (ABNORMAL) TSH (06/29/2022 10:22 AM CDT) Pathologist [facility] TSH 4.67(H) 0.30 - 4.20 uIU/mL 06/29/2022 11:20 AM CDT LABORATORY Blood STRUCTURE OF LEFT UPPER LIMB / Unknown Venipuncture / Unknown 06/29/2022 10:22 AM CDT 06/29/2022 10:22 AM CDT Lizeth Curiel APRN, CNP LAB - BLOOD OR DERABLES LABORATORY [facility] Acute Care Lab [address] Lab (1st floor, no room number) [place] [address], [facility] [phone] * (ABNORMAL) Basic metabolic panel (06/29/2022 10:22 [...] APRN, CNP LAB - BLOOD OR DERABLES [facility] Acute Care Lab [address] Lab (1st floor, no room number) [place] [address], [facility] [phone] * [place] level (06/29/2022 10:22 AM CDT) [place] 0.6 0.6 - 1.2 mmol/L 06/29/2022 11:47 AM CDT LABORATORY Comment: Therapeutic: 0.60 - 1.20 mmol/L; Toxic: >2.00 mmol/L Blood STRUCTURE OF LEFT UPPER LIMB / Unknown Venipuncture / Unknown 06/29/2022 10:22 AM CDT 06/29/2022 10:22 AM CDT Lizeth Curiel APRN, CNP LAB - BLOOD OR DERABLES [facility] Acute Care Lab [address] Lab (1st floor, no room number) [place] [address] [phone] documented in this encounter Visit Diagnoses Diagnosis High risk medication use Encounter for long-term (current) use of other medications documented in this encounter
--- OUTSIDE RECORDS SUMMARY | 2023-11-03 06:37 | XMS_ITS | Clinical Summary ---
Author Organization [place] Address [address] [place] [address] Care Team Providers Care Contract Analyst Name Role Phone Unavailable Primary Care Provider [...]
--- OUTSIDE RECORDS SUMMARY | 2023-11-03 06:37 | XMS_ITS | Referral Summary ---
Author Organization [place] Address [address] [place] [address] Care Team Providers Care Rn Ccu Name Role Phone Unavailable Primary Care Provider [...]
== END 2023-11-01 09:32 | disposition home or self-care (01) ==
LOC: NFLDREF 11-03 06:35
PROVIDERS: Visit Provider Obstetrics & Gynecology
DX: Z11.3 Encounter for screening for infections with a predominantly sexual mode of transmission (principal)
CPT/HCPCS: 87491; 87591

== ENCOUNTER 2024-01-08 10:30 | Outpatient (REF) | payer BC, SELFPAY ==
--- OUTSIDE RECORDS SUMMARY | 2024-01-08 11:39 | XMS_ITS | Encounter Summary ---
Author Organization [place] Address [address] [place] [address] Care Team Providers Care Pantograph Operator Name Role Phone Unavailable Primary Care Provider Unavailabl e Encounter Details Date Type Department Care Team (Late st Contact Info) Description 05/24/2022 Orders Only [facility] [address] [place] [address] Lizeth Curiel APRN LABEL FOLDER [facility] [address] [facility] [address] [facility] [place] [address] High risk medication use (Primary Dx); Bipolar [...] No / Unsure 05/24/2022 12:18 PM [facility]NA[facility] documented as of this encounter Plan of Treatment Not on file documented as of this encounter Results * (ABNORMAL) T4 free (05/24/2022 12:32 PM [facility]) Free T4 0.71(L) 0.90 - 1.70 ng/dL 05/24/2022 1:10 PM MANA[facility]ARE [facility]IT [facility] LABORATORY Blood STRUCTURE OF RIGHT UPPER LIMB / Unknown Venipuncture / Unknown 05/24/2022 12:32 PM [facility]IT 05/24/2022 12:32 PM [facility]IT Lizeth Willian Loradoroteo NAVNEET LABEL FOLDER LAB - BLOOD OR DERABLES LABORATORY [facility] [address] Lab (1st floor, no room number) [place] [address], [facility] [phone] * TSH (05/24/2022 12:32 PM [facility]NA[facility]ARE [facility]IT) Pathologist [facility] TSH 4.09 0.30 - 4.20 uIU/mL 05/24/2022 1:10 PM [facility]ARE UNIT LABORATORY Blood STRUCTURE OF RIGHT UPPER LIMB / Unknown Venipuncture / Unknown 05/24/2022 12:32 PM [facility]IT 05/24/2022 12:32 PM [facility]IT Lizeth Curiel APRN LABEL FOLDER LAB - BLOOD OR DERABLES Performing Organization Address City/[facility]/ZIP Co de Phone Number LABORATORY [facility] [address] Lab (1st floor, no room number) [place] [address], [facility] [phone] * (ABNORMAL) Basic metabolic panel (05/24/2022 12:32 PM MANAGER CR[facility]ARE UNIT) [facility] Sodium 141 136 - 145 mmol/L 05/24/2022 12:58 PM [facility] Potassium 4.2 3.4 - 5.3 mmol/L 05/24/2022 12:58 PM [facility] Chloride 102 98 - 107 mmol/L 05/24/2022 12:58 PM [facility] Carbon Dioxide (CO2) 28 22 - 29 mmol/L 05/24/2022 12:58 PM [facility] Anion Gap 11 7 - 15 mmol/L 05/24/2022 12:58 PM [facility] Urea Nitrogen 18.1 6.0 - 20.0 mg/dL 05/24/2022 12:58 PM [facility] Creatinine 1.05(H) 0.51 - 0.95 mg/dL 05/24/2022 12:58 PM [facility] Calcium 9.8 8.6 - 10.0 mg/dL 05/24/2022 12:58 PM [facility] LABORATORY Glucose 70 70 - 99 mg/dL 05/24/2022 12:58 PM [facility] RH LABORATORY GFR Estimate 74 >60 mL/min/1.7 3m2 05/24/2022 12:58 PM [facility] LABORATORY Comment:eGFR calculated usin 2020 CKD-EPI equation. Blood STRUCTURE OF RIGHT UPPER LIMB / Unknown Venipuncture / Unknown 05/24/2022 12:32 PM [facility] 05/24/2022 12:32 PM [facility] Lizeth Curiel APRN LABEL FOLDER LAB - BLOOD OR DERABLES [facility] Care Lab [address] Lab (1st floor, no room number) [place] [address], [facility] [phone] * (ABNORMAL) [place] level (05/24/2022 12:32 PM MANAGER [facility] UNIT) [place] 0.3(L) 0.6 - 1.2 mmol/L 05/24/2022 1:30 PM [facility] LABORATORY Comment: Therapeutic: 0.60 - 1.20 mmol/L; Toxic: >2.00 mmol/L Blood STRUCTURE OF RIGHT UPPER LIMB / Unknown Venipuncture / Unknown 05/24/2022 12:32 PM [facility] 05/24/2022 12:32 PM [facility]IT Lizeth Curiel APRN LABEL FOLDER LAB - BLOOD OR DERABLES Performing Organization Address City/[facility]/ZIP Co de Phone Number [facility] Care Lab [address] Lab (1st floor, no room number) [place] [address], [facility] [phone] * Lamotrigine Level (05/24/2022 12:32 PM MANAGER [facility]) Lamotrigine 4.3 3.0 - 15.0 ug/mL 05/26/2022 11:45 PM MANAGER CRITICAL [facility]ARE UNIT [facility] Comment: INTERPRETIVE INFORMATION: ??Lamotrigine Therapeutic Range: ??3.0-15.0 ug/mL ?Toxic: ??Greater than or equal to 20 ug/mL Pharmacokinetics varies widely, particularly with co-medications and/or compromised renal function. ??Adverse effects may include dizziness, somnolence, nausea and vomiting. Performed By: [facility] [address] [place] [address] Ranch Supervisor: Jaden Zimmerman MD, PhD Blood STRUCTURE OF RIGHT UPPER LIMB / Unknown Venipuncture / Unknown 05/24/2022 12:32 PM [facility]IT 05/24/2022 12:32 PM [facility] Lizeth Curiel APRN LABEL FOLDER LAB - BLOOD OR DERABLES [facility] [address] [place] [address], [facility] [phone] * (ABNORMAL) UA with Microscopic (05/24/2022 12:57 AM MANAGER [facility]ARE UNIT) Color Urine Yellow Colorless, Straw, Light Yellow, Yellow 05/24/2022 1:32 PM [facility] UNIT LABORATORY Appearance Urine Clear Clear 05/24/19 1:32 PM [facility] LABORATORY Glucose Urine Negative Negative mg/dL 05/24/2022 1:32 PM [facility] LABORATORY Bilirubin Urine Negative Negative 1:32 PM [facility] LABORATORY Ketones Urine Negative Negative mg/dL 05/24/2022 1:32 PM MANA[facility]ARE UNIT LABORATORY Specific [place] Urine 1.028 1.003 - 1.035 05/24/2022 1:32 PM [facility] LABORATORY Blood Urine Negative Negative 05/24/2022 1:32 PM MA[facility] LABORATORY pH Urine 5.5 5.0 - 7.0 05/24/2022 1:32 PM [facility] LABORATORY Protein Albumin Urine Negative Negative mg/dL 05/24/2022 1:32 PM [facility] LABORATORY Urobilinogen Urine Normal Normal, 2.0 mg/dL 05/24/2022 1:32 PM [facility] LABORATORY Nitrite Urine Negative Negative 05/24/2022 1:32 PM [facility] LABORATORY Leukocyte Esterase Urine Negative Negative 05/24/2022 1:32 PM [facility] LABORATORY Mucus Urine Present(A) None Seen /LPF 05/24/2022 1:32 PM MANA[facility] LABORATORY RBC Urine 1 <=2 /HPF 05/24/2022 1:32 PM [facility] LABORATORY WBC Urine <1 <=5 /HPF 05/24/2022 1:32 PM MANA[facility] LABORATORY Squamous Epithelials Urine <1 <=1 /HPF 05/24/2022 1:32 PM MANAGER CR[facility]ICAL [facility]ARE UNIT RH LABORATORY Urine URINE SPECIMEN OBTAINED BY CLEAN CATCH PROCEDURE / Unknown Non-blood Collection / Unknown 05/24/2022 12:57 AM MANA[facility] CR[facility]ARE UNIT 05/24/2022 1:27 PM MANA[facility]ARE UNIT Lizeth Curiel APRN LABEL FOLDER LAB - URINE OR DERABLES LABORATORY [facility] Acute Care Lab [address] Lab (1st floor, no room number) [place] [address], [facility] [phone] documented in this encounter Visit Diagnoses Diagnosis High risk medication use- Primary Encounter for long-term (current) use of other medications Bipolar 1 disorder (H) Bipolar I disorder, most recent episode (or current) unspecified documented in this encounter
--- OUTSIDE RECORDS SUMMARY | 2024-01-08 11:39 | XMS_ITS | Encounter Summary ---
Author Organization [place] Address [address] [place] [address] Care Team Providers Care Commuter Pilot Name Role Phone Unavailable Primary Care Provider Unavailabl e Encounter Details Date Type Department Care Team (Late st Contact Info) Description 06/29/2022 Orders Only [facility] [address] [place] [address] Aliyah Gage High risk medication use Social [...] OR DERABLES [facility] LABORATORY [facility] [place] [facility] [address] [facility], Room [address] [place] [address], [facility] [phone] * (ABNORMAL) TSH (06/29/2022 10:22 AM CDT) Pathologist [facility] TSH 4.67(H) 0.30 - 4.20 uIU/mL 06/29/2022 11:20 AM CDT LABORATORY Blood STRUCTURE OF LEFT UPPER LIMB / Unknown Venipuncture / Unknown 06/29/2022 10:22 AM CDT 06/29/2022 10:22 AM CDT Lizeth Curiel APRN, CNP LAB - BLOOD OR DERABLES LABORATORY [facility] Acute Care Lab [address] Lab (1st floor, no room number) [place] [address], [facility] [phone] * (ABNORMAL) Basic metabolic panel (06/29/2022 10:22 [...] APRN, CNP LAB - BLOOD OR DERABLES [facility] Acute Care Lab [address] Lab (1st floor, no room number) [place] [address], [facility] [phone] * [place] level (06/29/2022 10:22 AM CDT) [place] 0.6 0.6 - 1.2 mmol/L 06/29/2022 11:47 AM CDT LABORATORY Comment: Therapeutic: 0.60 - 1.20 mmol/L; Toxic: >2.00 mmol/L Blood STRUCTURE OF LEFT UPPER LIMB / Unknown Venipuncture / Unknown 06/29/2022 10:22 AM CDT 06/29/2022 10:22 AM CDT Lizeth Curiel APRN, CNP LAB - BLOOD OR DERABLES [facility] Acute Care Lab [address] Lab (1st floor, no room number) [place] [address]RUST [phone] documented in this encounter Visit Diagnoses Diagnosis High risk medication use Encounter for long-term (current) use of other medications documented in this encounter
--- OUTSIDE RECORDS SUMMARY | 2024-01-08 11:39 | XMS_ITS | Clinical Summary ---
Author Organization [facility] [employer] [facility] Address [place], [place] [address] Care Team Providers Care Isotope Technician Name Role Phone Aydee Roberson MD Primary Care Provider [phone] Allergies Active Allergy Reactions Criticality Noted Date Comments Zinc Oxide Rash 12/06/2023 Sulfa (Sulfonamide Antibiotics) Other - Describe In Comment Field 04/05/2021 Sulfacetamide Sodium Other - Describe In Comment Field 04/05/2021 Medications Medication Sig Dispensed Refills Start Date End Date Status vit 28/iron fum/folic (multivitamin folic acid 1 mg)Indications:Possib le , not confirmed Take 1 Tablet by mouth once daily. 30 Tablet 2 06/20/2021 Active lithium carbonate (LITHOBID) 300 mg Controlled-Release tablet Take 1,200 mg by mouth at bedtime. 11/22/2023 Active ARIPiprazole (ABILIFY) 5 mg tablet Take 5 mg by mouth once daily. 11/26/2023 Active cholecalciferol, Vitamin D3, 5,000 unit tab tablet Take 5,000 units by mouth once daily. 10/24/2023 Active hydrOXYzine HCL (ATARAX) 25 mg tabletIndications:Bip olar 1 disorder (HC) Take 4 Tablets (100 mg) by mouth at bedtime. 12/06/2023 Active QUEtiapine (SEROQUEL) 100 mg tabletIndications:Bip olar 1 disorder (HC) Take 3 Tablets (300 mg) by mouth at bedtime. 12/06/2023 Active Active Problems Problem Noted Date Diagnosed Date Bipolar 1 disorder 12/06/2023 Pap smear for cervical cancer screening 04/22/19 22 Overview (05/19/2021): 04/2021 NIL Plan: Pap/HPV due 04/2024 Major depressive disorder, recurrent, moderate 1 05/07/2020 Suicidal ideation 03/06/2021 Anxiety 03/06/2021 Encounters Date Type Department Care Team Description 12/06/2023 1:55 PM CDT Office Visit [facility] [address] [place] [address] Aydee Roberson MD Physical (28 Year Old Female); Lab (Family Hx of diabetes and high cholesterol ); Immunization/Injectio n 12/06/2023 Travel from Last 3 Months Immunizations Name Administration Dates Next Due COVID-19 vaccine (LifePics NTech 30mcg/0.3mL) 12YO+ BIVALENT PF, MDV 10/04/2022 INFLUENZA, IIV3 PF (AGE >= 6 MO) 12/06/2023 Tdap 11/25/2021,06/01/2019 Family History Medical History Relation [...] PHQ-2 Answer Date Recorded PHQ-2 TOTAL SCORE 1 12/06/2023 Social Connections Answer Date Recorded Frequency of Communication with Friends and Fami ly 0 12/06/2023 Financial Resource Strain Answer Date R ecorded Difficulty of Paying Living Expenses 3 12/06/2023 Difficulty of Paying Living Expenses Not on file 12/06/2023 Food Insecurity Answer Date Recorded Worried About Running Out of Food in the Last Ye ar 1 12/06/2023 Transportation Needs Answer Date Record ed Lack of Transportation (Medical) 1 12/06/2023 Housing Stability Answer Date Recorded Unable to Pay for Housing in the Last Year 1 12/06/2023 Sex and Gender Information Value Date Recorded Sex Assigned at Not on file Gender Identity Not on file Sexual Orientation Not on file Obstetrics History Para Term AB IAB SAB Ectopic Multiple Livin g Live Births 2 2 2 0 0 2 Date Outcome GA Total Labor Labor/2nd/3rd Weight Sex Type Anes PTL Loly A1 A5 Name Clin Term Term Last Filed Vital Signs Vital Sign Reading Time Taken Comments Blood Pressure 118/85 12/06/2023 2:10 PM CDT Pulse 84 12/06/2023 2:10 PM CDT Temperature - - Respiratory Rate 13 06/09/2021 1:09 PM INVOICE CONTROL CLERK Oxygen Saturation 97% 12/06/2023 2:10 PM CDT Inhaled Oxygen Concentration - - Weight 109.3 kg (241 lb) 12/06/2023 2:10 PM CDT Height 176 cm (5' 9.29) 12/06/2023 2:10 PM CDT Body Mass Index 35.29 12/06/2023 2:10 PM CDT Plan of Treatment Health Maintenance Due Date Last Done Comments HIV for age 15-65 2009 Hepatitis C screening for age 18-79 2012 COVID-19 vaccine series ( season) 2023 10/04/2022 Pap test for age 21-65 04/22/2024 04/22/2021 BMI (ht and wt on same day) for age 18+ 12/05/2024 12/06/2023, 10/04/2022, 04/22/2021, Additional history exists Depression screening for age 12+ 12/05/2024 12/06/2023, 10/06/2022, 10/04/2022, Additional history exists Tetanus booster 11/26/2031 11/25/2021, 06/01/2019 Tdap Completed 11/25/2021, 06/01/2019 Influenza for age 9-49 Completed 12/06/2023 Pneumococcal series for age 6-64 Aged Out No longer eligible based on patient's age to complete this topic Procedures Procedure Name Priority Date/Time Associated Diagnosis Comments T3,TOTAL Routine 12/06/2023 3:10 PM CDT Abnormal thyroid blood test T4,FREE Routine 12/06/2023 3:10 PM CDT Abnormal thyroid blood test TSH Routine 12/06/2023 3:10 PM CDT Abnormal thyroid blood test GYM ATTENDANT THIN PREP PAP SCREEN IMAGED Routine 04/22/2021 10:32 AM INVOICE CONTROL CLERK Pap smear for cervical cancer screening from Last 3 Months or Most Recently Relevant to Health Maintenance Results * TSH (12/06/2023 3:10 PM CDT) TSH 3.33 0.27 - 4.20 uIU/mL 12/07/2023 4:19 AM CDT [facility] Blood BLOOD SPECIMEN / Unknown Butterfly / Unknown 12/06/2023 3:10 PM CDT 12/06/2023 3:10 PM CDT Narrative [facility] - 12/07/2023 4:19 AM CDT In Adults, TSH values between 5.00 and 10.00 uIU/ml do not necessarily indicate the presence of Hypothyroidism. Correlation with clinical findings such as presence of goiter and/or Thyroperoxidase (TPO) Antibody may be helpful. For more information please refer to SHAHZAD 2004; 291: 228-238. Aydee Roberson MD CHEMISTRY Performing Organization Address City/[facility]/ZIP Co de Phone Number [facility] [address] [place] [address], * T3,TOTAL (12/06/2023 3:10 PM CDT) T3,TOTAL 101 85 - 202 ng/dL 12/07/2023 4:19 AM CDT [facility] Blood BLOOD SPECIMEN / Unknown Butterfly / Unknown 12/06/2023 3:10 PM CDT 12/06/2023 3:10 PM CDT Aydee Roberson MD CHEMISTRY [facility] [address] [place] [address], [place] * (ABNORMAL) T4,FREE (12/06/2023 3:10 PM CDT) T4,FREE 0.85(L) 0.93 - 1.70 ng/dL 12/07/2023 4:19 AM CDT [facility] Blood BLOOD SPECIMEN / Unknown Butterfly / Unknown 12/06/2023 3:10 PM CDT 12/06/2023 3:10 PM CDT Aydee Roberson MD CHEMISTRY [facility]-CENTRAL LABORATORY [address] [place] [address], [place] * GYM ATTENDANT THIN PREP PAP SCREEN IMAGED (04/22/2021 10:32 AM INVOICE CONTROL CLERK) Case Report Gynecologic Cytology Report ? Case: [id number] ? Authorizing Provider: ??Cristal Portillo, ??Collected: ? 04/22/2021 1032 ? PA ? Ordering Location: ? [facility] ?? Received: ?04/22/2021 1214 ? Clinic ? First Screen: ?Halima Bridges ? Specimen: ?GYM ATTENDANT ThinPrep Vial Screening, Cervical ? 05/02/2021 9:20 AM [facility] [employer] [facility] EN[facility]AL [facility] INTERPRETATION/ RESULT NEGATIVE FOR INTRAEPITHELIAL LESION OR MALIGNANCY (NIL) (none) 05/02/2021 9:20 AM [facility] LABORATORY IMEN ADEQUACY Satisfactory for evaluation Endocervical component present 05/02/2021 9:20 AM [facility] HPV REQUEST HPV if ASCUS 05/02/2021 9:20 AM [facility] Date of LMP 03/30/21 05/02/2021 9:20 AM [facility] EN[facility] LAB[facility]ORY Last Pap Date 2019 05/02/2021 9:20 AM [facility] EN[facility]ORY Last Pap Result NIL 9:20 AM [facility] Abnormal Pap or [place] Bx in last 5 years No 05/02/2021 9:20 AM [facility] Menstrual Status Regular Periods 05/02/2021 9:20 AM [facility] ENTRAL LABORATORY [place] Bx Done Today No 05/02/2021 9:20 AM [facility] Additional Information None given 05/02/2021 9:20 AM [facility] ENTRAL LABORATORY Comment: Cytology is screened at [facility] Central Laboratory - [address], [place] [address] and [facility] Laboratory - [address], [place] [address] and [facility] - [address] [place] [address] Interpreted at [facility] - [address] [place] [address] Automated Review Successful 05/02/2021 9:20 AM INVOICE CONTROL CLERK [facility] ENTRAL LABORATORY Comment:Specimen processed s uccessfully by automated insecticide supervisor device, [employer] System, [employer] Note The pap test is a screening technique, not a diagnostic procedure. It is used primarily to screen for squamous cancers and precursor lesions. Published studies have shown that it is subject to both false negative and false positive results. The pap test should not be used as the sole means to diagnose or exclude pre-malignant and malignant lesions. 05/02/2021 9:20 AM INVOICE CONTROL CLERK [facility] ENTRAL LABORATORY Other (Cervical) Non-Blood / Unknown 04/22/2021 10:32 AM INVOICE CONTROL CLERK 04/22/2021 12:14 PM INVOICE CONTROL CLERK Cristal ALEJANDRE PATHOLOGY/CYT OLOGY [facility]-CENTRAL LABORATORY [address] [place] [address], from Last 3 Months or Most Recently Relevant to Health Maintenance Care Teams Isotope Technician Relationship Specialty Start Date End Date Aydee Roberson MD [address] [place] [address] PCP - General Family Practice 10/06/22
--- OUTSIDE RECORDS SUMMARY | 2024-01-08 11:39 | XMS_ITS | Clinical Summary ---
Author Organization [place] Address [address] [place] [address] Care Team Providers Care Combination Welder Name Role Phone Unavailable Primary Care Provider [...]
--- OUTSIDE RECORDS SUMMARY | 2024-01-08 11:39 | XMS_ITS | Referral Summary ---
Author Organization [place] Address [address] [place] [address] Care Team Providers Care Heavy Duty Custodian Name Role Phone Unavailable Primary Care Provider [...]
[2024-01-08 13:38] LABS: Hemoglobin A1C* 5.5 % (0-5.6)
[2024-01-08 14:04] LABS: Chloride* 104 mmol/L (96-114)
[2024-01-08 14:05] LABS: Potassium* 4.5 mmol/L (3.6-5.1); Sodium* 137 mmol/L (135-149)
[2024-01-08 14:08] LABS: Anion Gap 7 mEq/L (7-15); Blood Urea Nitrogen* 14 mg/dL (5-24); Calcium* 9.9 mg/dL (8.4-10.6); Carbon Dioxide* 26 mmol/L (20-32); Cholesterol* 221 mg/dL (90-199); Creatinine* 0.9 mg/dL (0.5-1.5); Estimated Glomerular Filt Rate 89 ml/min; Glucose* 99 mg/dL (60-115); Triglycerides* 68 mg/dL (40-149)
[2024-01-08 14:09] LABS: HDL Cholesterol* 71 mg/dL (>=50); LDL Cholesterol Calculated 136 mg/dL (<100)
[2024-01-09 20:10] LABS: Lithium, Serum or Plasma 0.8 mmol/L (0.5-1.2)
== END 2024-01-08 10:31 | disposition home or self-care (01) ==
LOC: NPINS 10:30
PROVIDERS: Visit Provider Clinical Nurse Specialist
DX: G47.00 Insomnia, unspecified (principal); F41.9 Anxiety disorder, unspecified; F32.A Depression, unspecified; B37.31 Acute candidiasis of vulva and vagina
CPT/HCPCS: 80048; 80061; 80178; 83036; 84439; 84443

== ENCOUNTER 2024-09-15 10:49 | Outpatient (CLI) | payer BC, SELFPAY ==
[2024-09-15 11:37] LABS: Chloride* 102 mmol/L (96-114); Potassium* 4.6 mmol/L (3.6-5.1); Sodium* 135 mmol/L (135-149)
[2024-09-15 11:40] LABS: Anion Gap 8 mEq/L (7-15); Blood Urea Nitrogen* 12 mg/dL (5-24); Carbon Dioxide* 25 mmol/L (20-32); Cholesterol* 274 mg/dL (90-199); Creatinine* 1.1 mg/dL (0.5-1.5); Estimated Glomerular Filt Rate 69 ml/min; Triglycerides* 138 mg/dL (40-149)
[2024-09-15 11:41] LABS: Calcium* 10.2 mg/dL (8.4-10.6); Glucose* 90 mg/dL (60-115); HDL Cholesterol* 95 mg/dL (>=50); LDL Cholesterol Calculated 151 mg/dL (<100)
[2024-09-15 11:58] LABS: Free T4 Free Thyroxine* 1.05 ng/dL (0.70-1.85)
[2024-09-15 12:59] LABS: Hemoglobin A1C* 5.3 % (0-5.6)
== END 2024-09-15 10:50 | disposition home or self-care (01) ==
LOC: NPINS 10:50
PROVIDERS: Visit Provider Clinical Nurse Specialist
DX: Z79.899 Other long term (current) drug therapy (principal)
CPT/HCPCS: 80048; 80061; 80178; 83036; 84439; 84443

== ENCOUNTER 2024-12-07 09:46 | Emergency (ER) | payer BC, SELFPAY ==
[2024-12-07] VITALS (9 sets, daily range): BP systolic 107–120; BP diastolic 53–67; PULSE 73–88; RESP 18; TEMP 36.3; O2SAT 97–99; BMI 33.2
--- OUTSIDE RECORDS SUMMARY | 2024-12-07 09:48 | XMS_ITS | Encounter Summary ---
Author Organization [address] [address] Care Team Providers Care Director Hospice Operations Name Role Phone Unavailable Primary Care Provider Unavailabl e Encounter Details Date Type Department Care Team (Late st Contact Info) Description 06/29/2022 Orders Only [facility] [address] [place] [address] Aliyah Gage High risk medication use Social History Tobacco Use Types Packs/Day Years Used Date Smoking Tobacco: Never Assessed Comments Unknown Sex and Gender Information Value Date Recorded Sex Assigned at Not on file Legal Sex Female 5:00 PM EXTRUSION PRESS ADJUSTER Gender Identity Not on file Sexual Orientation [...] 10:22 AM CDT 06/29/2022 10:43 AM CDT us Lizeth Curiel APRN [facility] LAB - BLOOD ORDERABLES Final Result [facility] [place] [facility] [address] [facility], [address] [place] [address], [facility] [phone] * (ABNORMAL) TSH (06/29/2022 10:22 AM CDT) Pathologist [facility] TSH 4.67(H) 0.30 - 4.20 uIU/mL 06/29/2022 11:20 AM CDT LABORATORY Blood STRUCTURE OF LEFT UPPER LIMB / Unknown Venipuncture / Unknown 06/29/2022 10:22 AM CDT 06/29/2022 10:22 AM CDT us Lizeth Curiel APRN [facility] LAB - BLOOD ORDERABLES Final Result LABORATORY [facility] [address] Lab (1st floor, no room number) [place] [address], [facility] [phone] * (ABNORMAL) Basic metabolic panel (06/29/2022 10:22 AM CDT) Pathologist [facility] Sodium 141 136 - 145 mmol/L 06/29/2022 [...] 06/29/2022 11:14 AM CDT LABORATORY Comment:eGFR calculated usfl 2020 CKD-EPI equation. Blood STRUCTURE OF LEFT UPPER LIMB / Unknown Venipuncture / Unknown 06/29/2022 10:22 AM CDT 06/29/2022 10:22 AM CDT us Lizeth Curiel APRN, CNP LAB - BLOOD ORDERABLES Final Result [facility] Lab [address] Lab (1st floor, no room number) [place] [address], [facility] [phone] * [place] level (06/29/2022 10:22 AM CDT) [place] 0.6 0.6 - 1.2 mmol/L 06/29/2022 11:47 AM CDT LABORATORY Comment: Therapeutic: 0.60 - 1.20 mmol/L; Toxic: >2.00 mmol/L Blood STRUCTURE OF LEFT UPPER LIMB / Unknown Venipuncture / Unknown 06/29/2022 10:22 AM CDT 06/29/2022 10:22 AM CDT us Lizeth Curiel APRN, CNP LAB - BLOOD ORDERABLES Final Result [facility] [address] [facility] Lab (1st floor, no room number) [place] [address], [facility] [phone] documented in this encounter Visit Diagnoses Diagnosis High risk medication use Encounter for long-term (current) use of other medications documented in this encounter
--- OUTSIDE RECORDS SUMMARY | 2024-12-07 09:48 | XMS_ITS | Clinical Summary ---
Author Organization [place] Address [address] [place] [address] Care Team Providers Care Mammal Control Agent Name Role Phone Unavailable Primary Care Provider Unavailabl e Social History Tobacco Use Types Packs/Day Years Used Date Smoking Tobacco: Never Assessed Adolescent Education Answer Date Record ed Getting School Help Needed Not on file 12/23 Comments Unknown Sex and Gender Information Value Date Recorded Sex Assigned at Not on file Legal Sex Female 5:00 PM RADIATOR TESTER Gender Identity Not on file Sexual Orientation Not on file Plan of Treatment Not on file Procedures Procedure Name Priority Date/Time Associated Diagnosis Comments LITHIUM LEVEL Routine 09/15/2024 10:55 AM CDT from Last 3 Months Results * [place] level (09/15/2024 10:55 AM CDT) [place] 1.13 0.60 - 1.20 mmol/L 09/15/2024 3:25 PM CDT LABORATORY Comment: Therapeutic: 0.60 - 1.20 mmol/L; Toxic: >2.00 mmol/L Blood BLOOD SPECIMEN / Unknown Client Draw / Unknown 09/15/2024 10:55 AM CDT 09/15/2024 3:01 PM CDT us Laine Mejia APRN SUPERVISOR FINISH END LAB - BLOOD ORDERAB LES Final Result LABORATORY [facility] Acute Care Lab [address] Lab (1st floor, no room number) [place] [address], [facility] from Last 3 Months
--- OUTSIDE RECORDS SUMMARY | 2024-12-07 09:49 | XMS_ITS | Encounter Summary ---
Author Organization [place] Address [address] [place] [address]. [place] [address] Care Team Providers Care Body Trimmer Name Role Phone Unavailable Primary Care Provider Unavailabl e Encounter Details Date Type Department Care Team (Late st Contact Info) Description 05/24/[address] [facility] [address] [place] [id number] Lizeth Curiel APRN [facility] [address] [facility] [address] [place] [address] High risk medication use (Primary Dx); Bipolar 1 disorder (H) Social History Tobacco Use Types Packs/Day Years Used Date Smoking Tobacco: Never Assessed Comments Unknown Sex and Gender Information Value Date Recorded Sex Assigned at Not on file Legal Sex Female 5:00 PM DIGITAL PRODUCTION ARTIST Gender Identity Not on file Sexual Orientation Not on file COVID-19 Exposure Response Date Recorded In the last 10 days, have yo u been in contact with someone who was confirmed or suspected to have Coronavirus/COVID-19? No / Unsure 05/24/2022 12:18 PM DIGITAL PRODUCTION ARTIST documented as of this encounter Plan of Treatment Not on file documented as of this encounter Results * (ABNORMAL) T4 free (05/24/2022 12:32 PM DIGITAL PRODUCTION ARTIST) Free T4 0.71(L) 0.90 - 1.70 ng/dL 05/24/2022 1:10 PM DIGITAL PRODUCTION ARTIST [facility] LABORATORY Blood STRUCTURE OF RIGHT UPPER LIMB / Unknown Venipuncture / Unknown 05/24/2022 12:32 PM DIGITAL PRODUCTION ARTIST 05/24/2022 12:32 PM DIGITAL PRODUCTION ARTIST us Lizeth Curiel APRN, CNP LAB - BLOOD ORDERABLES Final Result Performing Organization Address City/[facility]/ZIP Co de Phone Number [facility] [address] Lab (1st floor, no room number) [place] [address], [facility] [phone] * TSH (05/24/2022 12:32 PM DIGITAL PRODUCTION ARTIST) TSH 4.09 0.30 - 4.20 uIU/mL 05/24/2022 1:10 PM DIGITAL PRODUCTION ARTIST LABORATORY Blood STRUCTURE OF RIGHT UPPER LIMB / Unknown Venipuncture / Unknown 05/24/2022 12:32 PM DIGITAL PRODUCTION ARTIST 05/24/2022 12:32 PM DIGITAL PRODUCTION ARTIST Lizeth Curiel APRN, CNP LAB - BLOOD ORDERABLES Final Result Performing Organization Address [facility]/ZIP Co de Phone Number [facility] [address] Lab (1st floor, no room number) [place] [address], [facility] [phone] * (ABNORMAL) Basic metabolic panel (05/24/2022 12:32 PM DIGITAL PRODUCTION ARTIST) Sodium 141 136 - 145 mmol/L 05/24/2022 12:58 PM [facility] LABORATORY Potassium 4.2 3.4 - 5.3 mmol/L 05/24/2022 12:58 PM DIGITAL PRODUCTION ARTIST LABORATORY Chloride 102 98 - 107 mmol/L 05/24/2022 12:58 PM [facility] LABORATORY Carbon Dioxide (CO2) 28 22 - 29 mmol/L 05/24/2022 12:58 PM [facility] LABORATORY Anion Gap 11 7 - 15 mmol/L 05/24/2022 12:58 PM DIGITAL PRODUCTION ARTIST LABORATORY Urea Nitrogen 18.1 6.0 - 20.0 mg/dL 05/24/2022 12:58 PM [facility] LABORATORY Creatinine 1.05(H) 0.51 - 0.95 mg/dL 05/24/2022 12:58 PM [facility] LABORATORY Calcium 9.8 8.6 - 10.0 mg/dL 05/24/2022 12:58 PM DIGITAL PRODUCTION ARTIST LABORATORY Glucose 70 70 - 99 mg/dL 05/24/2022 12:58 PM DIGITAL PRODUCTION ARTIST LABORATORY GFR Estimate 74 >60 mL/min/1.7 3m2 05/24/2022 12:58 PM DIGITAL PRODUCTION ARTIST [facility] LABORATORY Comment:eGFR calculated usin 2020 CKD-EPI equation. Blood STRUCTURE OF RIGHT UPPER LIMB / Unknown Venipuncture / Unknown 05/24/2022 12:32 PM DIGITAL PRODUCTION ARTIST 05/24/2022 12:32 PM DIGITAL PRODUCTION ARTIST Lizeth Curiel APRN, CNP LAB - BLOOD ORDERABLES Final Result [facility] [address] [place] Lab (1st floor, no room number) [place] [address], [facility] [phone] * (ABNORMAL) [place] level (05/24/2022 12:32 PM DIGITAL PRODUCTION ARTIST) [place] 0.3(L) 0.6 - 1.2 mmol/L 05/24/2022 1:30 PM DIGITAL PRODUCTION ARTIST LABORATORY Comment: Therapeutic: 0.60 - 1.20 mmol/L; Toxic: >2.00 mmol/L Blood STRUCTURE OF RIGHT UPPER LIMB / Unknown Venipuncture / Unknown 05/24/2022 12:32 PM DIGITAL PRODUCTION ARTIST 05/24/2022 12:32 PM DIGITAL PRODUCTION ARTIST Lizeth Curiel APRN LAUNDRY BAG PUNCH OPERATOR LAB - BLOOD ORDERABLES Final Result [facility] [address] Lab (1st floor, no room number) [place] [address], [facility] [phone] * Lamotrigine Level (05/24/2022 12:32 PM DIGITAL PRODUCTION ARTIST) Lamotrigine 4.3 3.0 - 15.0 ug/mL 05/26/2022 11:45 PM DIGITAL PRODUCTION ARTIST [facility] Comment: INTERPRETIVE INFORMATION: Lamotrigine Therapeutic Range: 3.0-15.0 ug/mL Toxic: Greater than or equal to 20 ug/mL Pharmacokinetics varies widely, particularly with co-medications and/or compromised renal function. Adverse effects may include dizziness, somnolence, nausea and vomiting. Performed By: [facility] [place] [address] [place] [address] Patient Care Manager: Jaden Zimmerman MD, PhD Blood STRUCTURE OF RIGHT UPPER LIMB / Unknown Venipuncture / Unknown 05/24/2022 12:32 PM DIGITAL PRODUCTION ARTIST 05/24/2022 12:32 PM DIGITAL PRODUCTION ARTIST Lizeth Curiel APRN LAUNDRY BAG PUNCH OPERATOR LAB - BLOOD ORDERABLES Final Result [address] [address], [facility] [phone] * (ABNORMAL) UA with Microscopic (05/24/2022 12:57 AM DIGITAL PRODUCTION ARTIST) Color Urine Yellow Colorless, Straw, Light Yellow, Yellow 05/24/2022 1:32 PM [facility] LABORATORY Appearance Urine Clear Clear 05/24/19 1:32 PM DIGITAL PRODUCTION ARTIST LABORATORY Glucose Urine Negative Negative mg/dL 05/24/2022 1:32 PM [facility] LABORATORY Bilirubin Urine Negative Negative 1:32 PM DIGITAL PRODUCTION ARTIST LABORATORY Ketones Urine Negative Negative mg/dL 05/24/2022 1:32 PM [facility] LABORATORY Specific [place] Urine 1.028 1.003 - 1.035 05/24/2022 1:32 PM DIGITAL PRODUCTION ARTIST LABORATORY Blood Urine Negative Negative 05/24/2022 1:32 PM [facility] LABORATORY pH Urine 5.5 5.0 - 7.0 05/24/2022 1:32 PM DIGITAL PRODUCTION ARTIST LABORATORY Protein Albumin Urine Negative Negative mg/dL 05/24/2022 1:32 PM DIGITAL PRODUCTION ARTIST LABORATORY Urobilinogen Urine Normal Normal, 2.0 mg/dL 05/24/2022 1:32 PM DIGITAL PRODUCTION ARTIST LABORATORY Nitrite Urine Negative Negative 05/24/2022 1:32 PM DIGITAL PRODUCTION ARTIST LABORATORY Leukocyte Esterase Urine Negative Negative 05/24/2022 1:32 PM [facility] LABORATORY Mucus Urine Present(A) None Seen /LPF 05/24/2022 1:32 PM DIGITAL PRODUCTION ARTIST [facility] LABORATORY RBC Urine 1 <=2 /HPF 05/24/2022 1:32 PM DIGITAL PRODUCTION ARTIST [facility] LABORATORY WBC Urine <1 <=5 /HPF 05/24/2022 1:32 PM DIGITAL PRODUCTION ARTIST [facility] LABORATORY Squamous Epithelials Urine <1 <=1 /HPF 05/24/2022 1:32 PM DIGITAL PRODUCTION ARTIST LABORATORY Urine URINE SPECIMEN OBTAINED BY CLEAN CATCH PROCEDURE / Unknown Non-blood Collection / Unknown 05/24/2022 12:57 AM DIGITAL PRODUCTION ARTIST 05/24/2022 1:27 PM DIGITAL PRODUCTION ARTIST us Lizeth Curiel APRN LAUNDRY BAG PUNCH OPERATOR LAB - URINE ORDERABLES Final Result LABORATORY [facility] Acute Care Lab [address] Lab (1st floor, no room number) [place] [address], [facility] [phone] documented in this encounter Visit Diagnoses Diagnosis High risk medication use- Primary Encounter for long-term (current) use of other medications Bipolar 1 disorder (H) Bipolar I disorder, most recent episode (or current) unspecified documented in this encounter
--- OUTSIDE RECORDS SUMMARY | 2024-12-07 09:49 | XMS_ITS | Clinical Summary ---
Author Organization [facility] Address [address] [place] [address] Care Team Providers Care Oral Surgery Physician Name Role Phone Aydee Roberson MD Primary Care Provider [phone] Radha Gramajo MD Unavailable [phone] Allergies Active Allergy Reactions Criticality Noted Date Comments Zinc Oxide Rash 12/06/2023 Sulfa (Sulfonamide Antibiotics) Other - Describe In Comment Field 04/05/2021 Sulfacetamide Sodium Other - Describe In Comment Field 04/05/2021 Medications vit 28/iron fum/folic (multivitamin folic acid 1 mg)Indications:P ossible , not confirmed Take 1 Tablet by mouth once daily. 30 Tablet 2 06/20/2021 Active lithium carbonate (LITHOBID) 300 mg Controlled-Relea se tablet Take 1,200 mg by mouth at bedtime. 11/22/2023 Active ARIPiprazole (ABILIFY) 5 mg tablet Take 5 mg by mouth once daily. 11/26/2023 Active cholecalciferol, Vitamin D3, 5,000 unit tab tablet Take 5,000 units by mouth once daily. 10/24/2023 Active hydrOXYzine HCL (ATARAX) 25 mg tabletIndication s:Bipolar 1 disorder (HC) Take 4 Tablets (100 mg) by mouth at bedtime. 12/06/2023 Active QUEtiapine (SEROQUEL) 100 mg tabletIndication s:Bipolar 1 disorder (HC) Take 3 Tablets (300 mg) by mouth at bedtime. 12/06/2023 Active norgestimate-eth inyl estradiol, 0.25-35 mg-mcg, (ORTHO-CYCLEN) 0.25-35 mg-mcg tabletIndication s:Amenorrhea,PCO S (polycystic ovarian syndrome) Take 1 Tablet by mouth once daily. 90 Tablet 3 04/09/2024 Active Rexulti 2 mg tablet Take 1 Tablet by mouth once daily. 03/21/2024 Active benztropine (COGENTIN) 1 mg tablet Take 1 Tablet by mouth two times daily. 03/20/2024 Active QUEtiapine (SEROQUEL) 400 mg tablet Take 600 mg by mouth at bedtime. 03/08/2024 Active Rexulti 3 mg tablet Take 1 Tablet by mouth once daily. 04/15/2024 Active QUEtiapine (SeroqueL) 200 mg tablet Take 200 mg by mouth once daily. Active levothyroxine (SYNTHROID) 50 mcg tabletIndication s:Hypothyroidism , unspecified type Take 1 Tablet (50 mcg) by mouth once daily. 90 Tablet 2 05/07/2024 Active cloNIDine HCL (CATAPRES) 0.1 mg tablet Take 1 Tablet by mouth two times daily. 09/30/2024 Active metFORMIN (GLUCOPHAGE XR) 500 mg Extended-Release tabletIndication s:PCOS (polycystic ovarian syndrome) Take 2 Tablets (1,000 mg) by mouth once daily with evening meal. 60 Tablet 3 10/09/2024 Active Active Problems Problem Noted Date Diagnosed Date Bipolar 1 disorder 12/06/2023 Pap smear for cervical cancer screening 04/22/19 22 Overview (05/19/2021): 04/2021 NIL Plan: Pap/HPV due 04/2024 Major depressive disorder, recurrent, moderate 1 05/07/2020 Suicidal ideation 03/06/2021 Anxiety 03/06/2021 Encounters Date Type Department Care Team Description 10/09/2024 10:30 AM CDT Office Visit [facility] [id number] [place] [id number] Radha Gramajo MD Follow Up (Hypothyroidism, unspecified type) 10/09/2024 Travel 09/15/2024 Refill [facility] [address] [address] Radha Gramajo MD Refill Request (metformin) from Last 3 Months Immunizations Immunization Administration Dates Next Due COVID-19 vaccine ([employer] 30mcg/0.3mL) 12YO+ BIVALENT PF, MDV 10/04/2022 [...] 1 12/06/2023 Social Connections Answer Date Recorded Do you often feel lonely or isolated from those around you? 0 12/06/2023 Financial Resource Strain Answer Date R ecorded Difficulty of Paying Living Expenses 3 12/06/2023 Difficulty of Paying Living Expenses Not on file 12/06/2023 Food Insecurity Answer Date Recorded Do you worry your food will run out before you are able to buy more? 1 12/06/2023 Transportation Needs Answer Date Record ed Does lack of transportation keep you from medica l appointments? 1 12/06/2023 Does lack of transportation keep you from work, meetings or getting things that you need? 1 12/06/2023 Housing Stability Answer Date Recorded What is your housing situation today? 1 12/06/2023 Utilities Answer Date Recorded Do you have trouble paying f or utilities (for example, heat, electricity, water, phone)? 1 12/06/2023 Comments No Sex and Gender Information Value Date Recorded Sex Assigned at Not on file Legal Sex Female 5:24 PM SHOE DYER Gender Identity Not on file Sexual Orientation Not on file Obstetrics History Para Term AB IAB SAB Ectopic Multiple Livin g Live Births 2 2 2 0 0 2 Date Outcome GA Total Labor Labor/2nd/3rd Weight Sex Type Anes PTL Loly A1 A5 Name Clin Term Term Last Filed Vital Signs Vital Sign Reading Time Taken Comments Blood Pressure 110/62 10/09/2024 10:35 AM CDT Pulse 76 10/09/2024 10:35 AM CDT Temperature - - Respiratory Rate 13 06/09/2021 1:09 PM SHOE DYER Oxygen Saturation 98% 05/07/2024 10:34 AM SHOE DYER Inhaled Oxygen Concentration - - Weight 102 kg (224 lb 12.8 oz) 10/09/2024 10:35 AM CDT Height 176 cm (5' 9.29) 12/06/2023 2:10 PM CDT Body Mass Index 32.92 12/06/2023 2:10 PM CDT Plan of Treatment Upcoming Encounters Date Type Department Care Team (Late st Contact Info) Description 02/11/2025 10:30 AM SHOE DYER Office Visit [facility] [address] [phone] [place] [address] [place], [place] [phone] Health Maintenance Due Date Last Done Comments HIV for age 15-65 2009 Hepatitis C screening for age 18-79 2012 Hepatitis B series for 19+ (1 of 3 - 19+ 3-dose series) 2013 Pap test for age 21-65 04/22/2024 04/22/2021 COVID-19 vaccine series ( season) 2024 10/04/2022 Influenza Vaccine (#1) 2024 12/06/2023 BMI (ht and wt on same day) for age 18+ 12/05/2024 12/06/2023, 10/04/2022, 04/22/2021, Additional history exists Depression screening for age 12+ 12/05/2024 12/06/2023, 10/06/2022, 10/04/2022, Additional history exists Tetanus booster 11/26/2031 11/25/2021, 06/01/2019 RSV vaccine for adults or (1 - 1-dose 75+ series) 2069 Pneumococcal series for age 6-49 Aged Out No longer eligible based on patient's age to complete this topic Procedures Procedure Name Priority Date/Time Associated Diagnosis Comments TSH Routine 10/09/2024 11:02 AM CDT Hypothyroidism, unspecified type T4,FREE Routine 10/09/2024 11:02 AM CDT Hypothyroidism, unspecified type TWENTY ONE DEALER THIN PREP PAP SCREEN IMAGED Routine 04/22/2021 10:32 AM SHOE DYER Pap smear for cervical cancer screening from Last 3 Months or Most Recently Relevant to Health Maintenance Results * TSH (10/09/2024 11:02 AM CDT) TSH 2.88 mIU/L [facility] Comment: Reference Range > or = 20 Years 0.40-4.50 Ranges First trimester 0.26-2.66 Second trimester 0.55-2.73 Third trimester 0.43-2.91 Blood BLOOD SPECIMEN / Unknown 10/09/2024 11:02 AM CDT 10/09/2024 11:06 AM CDT Radha Gramajo MD CHEMISTRY Final Result [facility] [address] [place] [address], [place] [phone] [facility] [address] [place] [address] * T4,FREE (10/09/2024 11:02 AM CDT) T4, FREE 1.3 0.8 - 1.8 ng/dL [facility] Blood BLOOD SPECIMEN / Unknown 10/09/2024 11:02 AM CDT 10/09/2024 11:06 AM CDT Radha Gramajo MD CHEMISTRY Final Result [facility] [address] [place] [address], [place] [phone] [facility] [address] [facility] [place] [address] * TWENTY ONE DEALER THIN PREP PAP SCREEN IMAGED (04/22/2021 10:32 AM SHOE DYER) Case Report Gynecologic Cytology Report Case: [id number] Authorizing Provider: Cristal Portillo, Collected: 04/22/2021 1032 PA Ordering Location: [facility] Received: 04/22/2021 1214 Clinic First Screen: Halima Bridges Specimen: TWENTY ONE DEALER ThinPrep Vial Screening, Cervical 05/02/2021 9:20 AM SHOE DYER [facility] [employer] ENTRAL LABORATORY INTERPRETATION/ RESULT NEGATIVE FOR INTRAEPITHELIAL LESION OR MALIGNANCY (NIL) (none) 05/02/2021 9:20 AM SHOE DYER [facility] ENTRAL LABORATORY at 0920 SHOE DYER SPECIMEN ADEQUACY Satisfactory for evaluation Endocervical component present 05/02/2021 9:20 AM SHOE DYER [facility] HPV REQUEST HPV if ASCUS 05/02/2021 9:20 AM SHOE DYER [facility] E-[facility] Date of LMP 03/30/21 05/02/2021 9:20 AM SHOE DYER [facility] [employer] [facility] ENTRAL LABORATORY Last Pap Date 2019 05/02/2021 9:20 AM SHOE DYER [facility] EN[facility]AL [facility]ORATORY Last Pap Result NIL 9:20 AM SHOE DYER [facility] E[facility] Abnormal Pap or [place] Bx in last 5 years No 05/02/2021 9:20 AM SHOE DYER [facility] [employer] [facility] ENTRAL LABORATORY Menstrual Status Regular Periods 05/02/2021 9:20 AM SHOE DYER [facility] ENTRAL LABORATORY [place] Bx Done Today No 05/02/2021 9:20 AM SHOE DYER [facility] ENTRAL LABORATORY Additional Information None given 05/02/2021 9:20 AM SHOE DYER [facility] ENTRAL LABORATORY Comment: Cytology is screened at [facility], Central Laboratory - [address], [place] [address] and [facility] - [address], [place] [address] and [facility] - [address] [place] [address] Interpreted at [facility] - [address] [place] [address] Automated Review Successful 05/02/2021 9:20 AM SHOE DYER [facility] ENTRAL LABORATORY Comment:Specimen processed s uccessfully by automated loom overhauler device, ThinPrep Imaging System, [employer] Note The pap test is a screening technique, not a diagnostic procedure. It is used primarily to screen for squamous cancers and precursor lesions. Published studies have shown that it is subject to both false negative and false positive results. The pap test should not be used as the sole means to diagnose or exclude pre-malignant and malignant lesions. 05/02/2021 9:20 AM SHOE DYER [facility] ENTRAL LABORATORY Other (Cervical) Non-Blood / Unknown 04/22/2021 10:32 AM SHOE DYER 04/22/2021 12:14 PM SHOE DYER Cristal ALEJANDRE PATHOLOGY/CYTOLOGY Fi nal Result [facility]-CENTRAL LABORATORY [address] [place] [address], from Last 3 Months or Most Recently Relevant to Health Maintenance Insurance [facility] [place] Care Teams Oral Surgery Physician Relationship Specialty Start Date End Date Aydee Roberson MD [address] [place], [place] [id number] PCP - General Family Practice 10/06/22 [place] [address] [place] [address] Endocrinology Endocrinology 04/10/24
--- NOTE | 2024-12-07 10:08 | ED.GENADULT ---
HPI - General Adult General Chief complaint: Syncope/Fainted Stated complaint: loss of vision, dizziness Time Seen by Provider: 12/07/24 09:49 History of Present Illness HPI narrative: Patient is a 29 year white female with history of anxiety depression, she is on Abilify hydroxyzine, lithium, Seroquel. Patient reports she is getting other shower today she felt lightheaded felt like she might pass out, has not felt ill has not had any weakness or illness she does report falling off a worsened scraping her hand within the last week but had no loss conscious no headache neck pain back pain that is persisted significantly. She has been ambulatory without difficulty no shortness of breath, no anterior chest pain. No bleeding or clotting problems. She denies she had been on control pill. Last menstrual period about 3 and half weeks ago. Related Data Home Medications ?Medication ?Instructions ?Recorded ?Confirmed prenat.vits,jonna,dxt-mivu-ojpen 1 tab PO QDAY 10/17/21 11/01/23 cholecalciferol (vitamin D3) 125 125 mcg PO QDAY 11/01/23 11/01/23 mcg (5,000 unit) capsule hydroxyzine HCl 25 mg tablet 100 mg PO QHS 11/01/23 12/07/24 lithium carbonate 300 mg 1,200 mg PO QHS 11/01/23 12/07/24 tablet,extended release quetiapine 25 mg tablet 600 mg PO ONCE HS 11/01/23 11/01/23 aripiprazole 10 mg tablet 10 mg PO DAILY 01/08/24 01/08/24 cariprazine 1.5 mg capsule mg PO 12/07/24 (Vraylar) cariprazine 3 mg capsule (Vraylar) 3 mg PO DAILY 12/07/24 12/07/24 cariprazine 4.5 mg capsule 4.5 mg PO DAILY 12/07/24 12/07/24 (Vraylar) levothyroxine 50 mcg tablet 50 mcg PO DAILY 12/07/24 12/07/24 metformin 500 mg tablet,extended mg PO 12/07/24 release 24 hr norgestimate 0.25 mg-ethinyl 1 tab PO DAILY 12/07/24 12/07/24 estradiol 0.035 mg tablet (Niharika) Previous Rx's ?Medication ?Instructions ?Recorded fluconazole 150 mg tablet 150 mg PO Q3D 2 doses #2 tabs 11/01/23 azithromycin 250 mg tablet See Rx Instructions PO .COMPLEX #6 02/12/24 tabs azithromycin 250 mg tablet 250 - 500 mg (1 - 2 x 250 mg) PO 03/11/24 QDAY #6 tabs Allergies Allergy/AdvReac Type Severity Reaction Status Date / Time sulfate ion Allergy Mild Hives and Verified 01/08/24 12:36 throat closes up Sulfa (Sulfonamide Allergy Verified 01/08/24 12:36 Antibiotics) Review of Systems Status of ROS: Reports: 6 or more systems reviewed and unremarkable except as noted in History and below [facility] Medical History Pain during labor ?O99.892 - Other specified diseases and conditions complicating childbirth (ICD-10) ?R52 - Pain, unspecified (ICD-10) Surgical History [place] teeth extracted ?K08.409 - Partial loss of teeth, unspecified cause, unspecified class (ICD-10) Family History Maternal Grandfather Diabetes Maternal Grandmother Diabetes Mother Diabetes Paternal Grandfather Blindness Social History Smoking Status: Never smoker Second hand tobacco smoke exposure: No How often do you have a drink containing alcohol: never How often do you have six or more drinks on one occasion: Never AUDIT-C Alcohol total score: 0 Non-prescribed substance use: denies use Exam Narrative: Exam Narrative: Objective: Vital signs are within normal limits Alert or x3 no distress Patient feels back to normal distal little anxious. She would accept some medication for helping anxiety HEENT unremarkable no facial asymmetry neck supple nontender neck back chest unremarkable heart rhythm regular heart murmur abdomen benign soft extremities are no edema neurologic nonfocal Const: Vital Signs, click to edit/add: Vital Signs - 24 hr 12/07/24 09:55 12/07/24 10:25 12/07/24 10:28 Temperature 97.4 F L Pulse Rate 81 73 Pulse Rate [Pulse Oximeter] 84 Respiratory Rate 18 Blood Pressure 108/53 L Blood Pressure [Ri ght Upper Arm] 120/67 Pulse Oximetry 97 98 98 Oxygen Delivery Me thod Room Air 12/07/24 10:30 12/07/24 10:31 12/07/24 10:32 Temperature Pulse Rate 82 75 88 Pulse Rate [Pulse Oximeter] Respiratory Rate Blood Pressure 107/62 Blood Pressure [Ri ght Upper Arm] Pulse Oximetry 97 98 97 Oxygen Delivery Me thod 12/07/24 10:45 12/07/24 11:00 12/07/24 11:02 Temperature Pulse Rate 81 80 83 Pulse Rate [Pulse Oximeter] Respiratory Rate Blood Pressure 113/67 Blood Pressure [Ri ght Upper Arm] Pulse Oximetry 98 98 99 Oxygen Delivery Me thod Course Vital Signs Vital signs: Initial Vital Signs Temperature 97.4 F L 12/07/24 09:55 Temperature Source Temporal Artery Scan 12/07/24 09:55 Pulse Rate 84 12/07/24 09:55 Respiratory Rate 18 12/07/24 09:55 Blood Pressure 120/67 12/07/24 09:55 Blood Pressure Mean 84 12/07/24 09:55 Pulse Oximetry 97 12/07/24 09:55 Oxygen Delivery Method Room Air 12/07/24 09:55 Vital Signs Temperature 97.4 F L 12/07/24 09:55 Pulse Rate 84 12/07/24 09:55 Respiratory Rate 18 12/07/24 09:55 Blood Pressure 120/67 12/07/24 09:55 Pulse Oximetry 97 12/07/24 09:55 Oxygen Delivery Method Room Air 12/07/24 09:55 Temperature 97.4 F L 12/07/24 09:55 Pulse Rate 83 12/07/24 11:02 Respiratory Rate 18 12/07/24 09:55 Blood Pressure 113/67 12/07/24 11:02 Pulse Oximetry 99 12/07/24 11:02 Oxygen Delivery Method Room Air 12/07/24 09:55 Medications Administered Medications: Discontinued Medications Generic Name Dose Route Start Last Admin Trade Name Freq PRN Reason Stop Dose Admin Sodium Chloride 1,000 mls @ 6,000 mls/hr 12/07/24 10:15 12/07/24 11:28 0.9 % Sodium Chloride 1000 Ml IV 12/07/24 10:24 Infused .Q10M IRASEMA Infusion Lorazepam 1 mg 12/07/24 10:35 12/07/24 10:42 Lorazepam 1 Mg Tablet PO 12/07/24 10:36 1 mg ONCE ONE Administration Medical Decision Making MDM Narrative Medical decision making narrative: 29-year-old female with a brief near syncopal episode likely vasovagal in nature. Will rehydrate, check EKG for completeness, laboratory studies electrolytes hemoglobin. Will check a test for completeness although she is on control pills. Give her Ativan 1 mg IV orally and 1 L saline as mention. Disposition pending findings I suspect should likely be able to go home continue her same medications. Rest for the next couple of days light activity good fluid intake. Addendum 11:10 a.m. patient's EKG by my independent herb patient shows artifact but normal sinus rhythm no acute ST [place] [address] hemoglobin 12.2. Sodium a potassium are normal. If her other labs including quantitative hCG and the rest of her electrolyte panel are negative should be allowed to go home rest light activity continue home medications. Follow up with regular doctor in 2-3 days return to ED sooner problems or concerns Lab Data Labs: Lab Results 12/07/24 Range/Units 10:25 WBC 10.39 (4.50-11.00) K/uL RBC 4.63 (4.00-5.20) m/uL Hgb 12.2 (12.0-16.0) gm/dL Hct 38.0 (33.0-51.0) % MCV 82 (80-100) fL MCH 26 (26-34) pg MCHC 32 (32-36) gm/dL RDW Coeff of Ritesh 12.3 (11.5-15.5) % Plt Count 346 (140-440) K/uL Neut % (Auto) 71.1 (42.0-72.0) % Lymph % (Auto) 21.6 (20-44) % [place] % (Auto) 5.1 (0.0-11.0) % Eos % (Auto) 1.8 (0.0-7.0) % Baso % (Auto) 0.2 (0.0-3.0) % Neut # (Auto) 7.39 H (1.7-7.0) K/uL Lymph # (Auto) 2.24 (0.90-2.90) K/uL [place] # (Auto) 0.50 (0.00-0.90) K/UL Eos # (Auto) 0.19 (0.00-0.50) K/uL Baso # (Auto) 0.02 (0.00-0.30) K/uL Abs Immat Gran (auto) 0.02 (0.00-0.30) K/uL Imm/Tot Granulo (auto) 0.2 % Sodium 136 (135-149) mmol/L Potassium 4.1 (3.6-5.1) mmol/L Chloride 107 (96-114) mmol/L Carbon Dioxide 23 (20-32) mmol/L Anion Gap 6 L (7-15) mEq/L BUN 16 (5-24) mg/dL Creatinine 0.9 (0.5-1.5) mg/dL Estimated Creat Clear 95.52 Estimated GFR 88 ml/min Glucose 124 H (60-115) mg/dL Calcium 9.6 (8.4-10.6) mg/dL HCG, Quant < 2.39 mIU/mL Discharge Plan Discharge Clinical Impression: Vasovagal near syncope Patient Disposition: Home w/ Parent or Adult Condition: Improved Additional Instructions: Continue present medications, rest light activity for the next couple of days, good fluid intake, update her regular doctor in 2 days. Return as needed. Activity Level: Light activity Discharge Diet: Regular Prescriptions: No Action prenat.vits,jonna,[id number]-wedl-emnrh Tablet 1 tab PO QDAY hydroxyzine HCl 25 mg tablet 100 mg PO QHS Patient Comments: 75-100mg prn quetiapine 25 mg tablet 600 mg PO ONCE HS lithium carbonate 300 mg tablet extended release 1,200 mg PO QHS cholecalciferol (vitamin D3) 125 mcg (5,000 unit) capsule 125 mcg PO QDAY fluconazole 150 mg tablet 150 mg PO Q3D Qty: 2 0RF aripiprazole 10 mg tablet 10 mg PO DAILY norgestimate-ethinyl estradiol [Niharika] 0.25-0.035 mg tablet 1 tab PO DAILY levothyroxine 50 mcg tablet 50 mcg PO DAILY metformin 500 mg tablet extended release 24 hr PO Vraylar 1.5 mg capsule PO Vraylar 3 mg capsule 3 mg PO DAILY Vraylar 4.5 mg capsule 4.5 mg PO DAILY azithromycin 250 mg tablet See Rx Instructions PO .COMPLEX Qty: 6 0RF Rx Instructions: For 250 mg dose pack: take 500 mg today (day 1), then 250 mg for 4 days (days 2-5) PO azithromycin 250 mg tablet 250 - 500 mg PO QDAY Qty: 6 0RF Rx Instructions: 2 tabs day 1 then 1 tab daily on days 2-5. Follow Up/Referrals: Provider,Not a Local [Non-Staff, Family Practice] Stand Alone Forms: [facility] Info Instructions
[2024-12-07 10:34] LABS: Hematocrit 38.0 % (33.0-51.0); Hemoglobin* 12.2 gm/dL (12.0-16.0); Immature Granulocytes Abs Auto 0.02 K/uL (0.00-0.30); Immature Granulocytes Pct Auto 0.2 %; Lymphocytes Absolute Auto 2.24 K/uL (0.90-2.90); Mean Corpuscular HGB Conc 32 gm/dL (32-36); Mean Corpuscular Hemoglobin 26 pg (26-34); Mean Corpuscular Volume 82 fL (80-100); RDW Coefficient of Variation % 12.3 % (11.5-15.5); Red Blood Count 4.63 m/uL (4.00-5.20); White Blood Count* 10.39 K/uL (4.50-11.00)
[2024-12-07 10:38] LABS: Slide Review Reflex No
[2024-12-07 10:53] LABS: Chloride* 107 mmol/L (96-114); Potassium* 4.1 mmol/L (3.6-5.1); Sodium* 136 mmol/L (135-149)
[2024-12-07 10:56] LABS: Anion Gap 6 mEq/L (7-15); Blood Urea Nitrogen* 16 mg/dL (5-24); Calcium* 9.6 mg/dL (8.4-10.6); Carbon Dioxide* 23 mmol/L (20-32); Creatinine* 0.9 mg/dL (0.5-1.5); Est. Creatinine Clearance* 95.52; Estimated Glomerular Filt Rate 88 ml/min; Glucose* 124 mg/dL (60-115)
[2024-12-07 11:34] LABS: HCG Quantitative* < 2.39 mIU/mL
== END 2024-12-07 12:15 | disposition home or self-care (01) ==
PROVIDERS: Emergency Provider Family Medicine; PCP Nurse Practitioner
DX: R55 Syncope and collapse (principal)
CPT/HCPCS: 36415; 80048; 84702; 85025; 93005; 99284; 99285; A9270; J7030